=== PATIENT | female | born 1950 | race Caucasian/White ===

== ENCOUNTER 2023-08-06 23:59 | Inpatient (IN) | payer MEDICARE, OTHER, SELFPAY ==
[2023-08-06 21:33] VITALS: BP 136/98
[2023-08-06 22:00] VITALS: BP 127/90
--- NOTE | 2023-08-06 22:16 | ED.GENMED ---
History of Present Illness
General
Chief Complaint: Weakness
Source: patient
Exam Limitations: none
Time Seen by Provider: 08/06/23 21:56
Nursing documentation reviewed up to this point in time: agreed with
Travel History
Have you had any contact with someone who has COVID-19?: No
Do you have any symptoms of coronavirus? Fever > 100 degrees, chills, cough, shortness of breath, sore throat, loss of taste or smell, muscle aches, or headache?: No
History of Present Illness
History of Present Illness:
72-year-old female with a past medical history of irritable bowel syndrome, Crohn's disease, severe aortic stenosis, CHF, hypertension who presents to the emergency room for evaluation of increasing generalized weakness and leg swelling. Patient
has chronic issues with ambulation; she says she lives at home independently but spends most of the day in a recliner; she can use a walker to ambulate to and from her first floor bathroom but she says it takes her about an hour to get out of her
chair and walk to the bathroom and back. She has a visiting nurse/health aide from 9 AM to 1 PM daily and recently started with an evening aide from 5 PM to 8 PM daily. She says that over the past few months she has had difficulty with getting up
out of her chair and is taking her longer and longer to go to the bathroom. For this reason she has discontinued use of her Lasix�she says that due to her difficulty getting out of the chair and to the bathroom, using the Lasix essentially makes it
so that she has to spend most of her day running back and forth to the bathroom. She says she has not used her Lasix about 2 or 3 weeks. Over that period time she has noticed increased welling in her legs and increasing shortness of breath. She
has no she is having difficulty getting out of her chair. Tonight she expressed to her with an aide that she did not believe that she could make it through the night without assistance due to her degree of weakness that she did not believe she had
the strength to get up to go to the bathroom. For this reason EMS called to bring her to the hospital. She denies any chest pain. She denies any fevers, chills, coughing recently. She has not had any urinary symptoms. She denies any abdominal
pain, nausea, vomiting, diarrhea. Her cured meat packing supervisor is Dr. Estrada and although she says that her son (who lives in [place]) is a cured meat packing supervisor as well and also helps manage her care.
Past History
Past History
ED Past Medical History: GERD, HTN and Other (IBS)
ED Past Surgical History: Orthopedic
Social History
Tobacco: Non-smoker
Alcohol: None
Drug: None
Living: prison
Review of Systems
Review of Systems
All Other Systems: ROS reviewed and negative except as documented in HPI and ROS
Constitutional: Reports fatigue; Denies fever or chills
EENT: Denies sore throat or runny nose
Respiratory: Reports trouble breathing; Denies cough
Cardiac: Denies chest pain or palpitations
ABD/GI: Denies abdominal pain, nausea or vomiting
: Denies dysuria, frequency or flank pain
Musculoskeletal: Reports edema; Denies neck pain or back pain
Neurological: Reports weakness (Generalized); Denies headache or numbness
Phy Exam
Physical Exam
Physical Exam:
General: Awake, alert, oriented x3; no acute distress
Head: Normocephalic, atraumatic
Eyes: Conjunctiva normal
Throat: Airway intact, handling secretions
Neck: Trachea midline, no notable JVD
Lungs: Breath sounds diminished at the lung bases bilaterally; very mild tachypnea with a respiratory rate of 22; oxygen saturation acceptable at 96% on room air
Heart: Tachycardia with regular rhythm, systolic murmur
Abd: Soft, non distended, nontender
Neuro: Cranial nerves grossly intact, speech fluid
Extremities: Massive bilateral edema in the lower extremities with chronic venous stasis changes; extremities are warm and well-perfused
Scores
Heart Failure Risk
Heart Failure Risk Score: Yes
History of Stroke or TIA: No
History of intubation for respiratory distress: No
Heart rate on ED arrival >/= 110: Yes
SaO2 <90% on arrival on room air: No
HR >/=110 during 3min walk test (or too ill to perform test): Yes
ECG has acute ischemic changes: No
Urea >/=12mmol/L (BUN 33.6mg/dL): No
Serum CO2>/=35mmol/L: No
Troponin I or T elevated to NC Level (0.4mg/dL): No
NT-proBNP >/=5,000ng/L (5,000pg/ml): Yes
HF Risk Score: 3
Admission Status: HIGH RISK 15.9% Consider SNF treatment or admission to hospital
Heart Score for Chest Pain Patients
STEMI patient?: Not applicable
Withdrawal Assessment of Alcohol
Withdrawal Assessment Completed?: Not applicable
Course
Orders/Labs/Results
Orders:
Orders
08/06/23 21:40
Electrocardiogram (*1) Urgent
Reason for Study: Other
Other Reason for Exam: increased weakness
08/06/23 21:41
EKG- Treatment ONCE
08/06/23 21:58
Urinalysis Reflex To Culture Urgent
08/06/23 22:16
CR Chest Portable - 1 View Urgent
Comment:
Reason For Exam: CHF
Reason Study Needs to be Portable: Unable to Transport
08/06/23 22:44
Complete Blood Count/With Diff Urgent
Comprehensive Metabolic Panel Urgent
NT-proBNP Urgent
Troponin I Urgent
08/06/23 23:09
Furosemide [Lasix] 40 mg IV NOW STA
Abnormal Lab Results
08/06/23
22:44
Hgb 11.8 L g/dL
(12.0-16.0)
MCH 26.3 L pg
(27.0-31.0)
MCHC 31.9 L g/dL
(33.0-37.0)
RDW 21.1 H %
(11.5-14.5)
Neutrophils % 76.8 H %
(42.2-75.2)
Lymphocytes % 14.5 L %
(20.5-51.1)
Potassium 5.7 H mmol/L
(3.5-5.1)
Carbon Dioxide 21 L mmol/L
(22-30)
BUN 19 H mg/dl
(7-17)
Total Bilirubin 1.8 H mg/dl
(0.2-1.3)
AST 42 H U/L
(14-36)
Alkaline Phosphatase 167 H U/L
(38-126)
Total Protein 9.8 H g/dl
(6.3-8.2)
08/06/23 22:44
08/06/23 22:44
Vital Signs
Initial and Last Documented VS:
Initial Vital Signs
Temp Pulse Resp BP Pulse Ox
36.6 C 116 22 136/98 96
08/06/23 21:33 08/06/23 21:33 08/06/23 21:33 08/06/23 21:33 08/06/23 21:33
Last Documented Vital Signs
Temp Pulse Resp BP Pulse Ox
36.6 C 116 22 136/98 96
08/06/23 21:33 08/06/23 21:33 08/06/23 21:33 08/06/23 21:33 08/06/23 21:33
MDM/Problems Addressed
Differential Diagnosis Includes:
CHF, deconditioning, infection including UTI or pneumonia, anemia
MDM/Problems Addressed:
72-year-old female presents for progressive weakness/ambulatory dysfunction and increasing shortness of breath in the setting of noncompliance with her Lasix. Vital signs significant for tachycardia and mild tachypnea; otherwise within acceptable
range including a pulse ox of 96% on room air. Physical exam as above. Suspect likely CHF exacerbation and physical deconditioning. Will plan to place an IV check labs including a CBC and a CMP, troponin, BNP. Check an EKG and chest x-ray.
Monitor closely reassess after the above. Anticipate need for admission pending initial assessment here.
Labs reviewed: CBC shows marginal anemia, stable. CMP shows mild hyperkalemia to 5.7�no EKG changes. Will treat with Lasix both for this and for CHF exacerbation�her chest x-ray shows pulmonary vascular congestion and her BNP is elevated. Will
admit for continued management. Discussed with hospitalist for admission.
Chronic conditions affecting care:
CHF, obesity
Acute Exacerbation and/or Progression of Chronic Illness:
Acute CHF exacerbation manage as above
*Radiology
Radiology exam reviewed: preliminary read by ED provider
*Pulse Oximetry
Patient hypoxic: no
*EKG
Interpreted by ED Provider?: Yes
Heart Rate: 112
Rate: tachycardiac
Rhythm: sinus and sinus tachycardia
Matthews: left axis deviation
Interval: normal interval
QRS Pattern: left vent hypertrophy
Ischemia: non-specific ST changes
*Critical Care Note
Total Time (30-74mins, 75-104mins- exclusive of procedures): Not Applicable
Data Reviewed
Review of Other/Old Records Reveals: Labs, Records and Discharge Summary
Source: patient and records
Patient Management
Discussion with other providers: Hospitalist (Discussed with hospitalist)
Escalation/DeEscalation of care consider admission/obs:
Admission indicated
ED Attending Note
-
Portions of this chart may have been created with voice recognition software.� Occasional wrong word or��sound alike� substitutions may have occurred due to the inherent limitations of voice recognition software.
Discharge Plan
Departure
Admit to doctor: Nelsy
Presentation/result/management discussed w/ accepting MD/DO: Hospitalist
Discharge Problem:
CHF exacerbation, Physical deconditioning, Acute hyperkalemia
Prescriptions:
No Action
rabeprazole [AcipHex] 20 MG tablet,delayed release (DR/EC)
20 mg PO HS
multivitamin with folic acid [Tab-A-[place]] 1 TABLET tablet
1 tab PO DAILY
metoprolol tartrate 25 MG tablet
25 mg PO BID 0RF
loperamide 2 MG capsule
2 mg PO DAILYPRN MDD 8caps/24hrs PRN (Reason: diarrhea)
valsartan 80 MG tablet
160 mg PO HS
benzonatate 100 MG capsule
200 mg PO Q8HPRN PRN (Reason: cough)
lidocaine 1 PATCH adhesive patch,medicated
1 patch topical DAILYPRN PRN (Reason: mild pain)
gabapentin 300 MG capsule
300 mg PO Q6H
solifenacin 5 MG tablet
10 mg PO HS
L.acidoph-L.jaredg-B.bif-S.therm [Nereida-Bid] 1 EACH tablet
1 tab PO BID
acetaminophen 325 MG tablet
650 mg PO Q6HPRN MDD 3000mg/24hrs PRN (Reason: mild pain/SIFUENTES/temp> 100.4F)
ferrous sulfate [FeroSul] 325 MG tablet
325 mg PO QPM
amlodipine 2.5 MG tablet
2.5 mg PO BID
ciprofloxacin HCl 250 MG tablet
250 mg PO BID 5 Days Qty: 10 0RF
tramadol 50 MG tablet
50 mg PO Q6H Qty: 12 0RF
Referrals:
Ailyn Gomez MD [Family Provider] -
Interventions
Interventions:
*Risk Screen - Suicide Last Done: 08/06/23 21:33
*General Assessment Last Done: 08/06/23 21:33
*Neglect/Abuse Screening Last Done: 08/06/23 21:33
Discharge Date and Time
Print Language: SENEGALESE
[2023-08-06 22:53] LABS: % Basophils 0.4 % (0-2); % Eosinophils 2.1 % (0-6); % Immature Granulocytes 0.4 % (0-0.5); % Lymphocytes 14.5 % (20.5-51.1); % Monocytes 5.8 % (1.7-9.3); % Neutrophils 76.8 % (42.2-75.2); Absolute Eosinophils 0.2 10^3/uL (0-0.7); Absolute Lymphocytes 1.2 10^3/uL (1.2-3.4); Absolute Monocytes 0.5 10^3/uL (0.1-0.6); Absolute Neutrophils 6.1 10^3/uL (1.4-6.5); Hemoglobin 11.8 g/dL (12.0-16.0); Mean Corp Hgb Conc. 31.9 g/dL (33.0-37.0); Mean Corpuscular Hgb 26.3 pg (27.0-31.0); Mean Corpuscular Volume 82.4 fL (81.0-99.0); Mean Platelet Volume 9.4 fL (7.4-10.4); Nucleated Red Blood Cells % 0.3 %; Platelet Count 248 10^3/uL (130-400); Red Blood Cell Count 4.49 10^6/uL (4.20-5.40); Red Cell Dist. Width 21.1 % (11.5-14.5)
[2023-08-06 23:07] LABS: ALT (SGPT) 15 U/L (0-35); AST (SGOT) 42 U/L (14-36); Albumin 4.1 g/dl (3.5-5.0); Alkaline Phosphatase 167 U/L (38-126); Blood Urea Nitrogen 19 mg/dl (7-17); Calcium 9.7 mg/dl (8.4-10.2); Carbon Dioxide 21 mmol/L (22-30); Chloride 104 mmol/L (98-107); Glucose 98 mg/dl (70-99); Potassium 5.7 mmol/L (3.5-5.1); Sodium 135 mmol/L (135-145); Total Bilirubin 1.8 mg/dl (0.2-1.3); Total Protein 9.8 g/dl (6.3-8.2); eGFR > 60.00
[2023-08-06 23:25] LABS: NT-proBNP 19900 pg/ml; Troponin I 0.066 ng/ml
--- NOTE | 2023-08-06 23:52 | HPS.HSE ---
Addendum entered and electronically signed by Boaz Whittington MD 08/07/23 05:37:
Laboratory Tests
08/07/23
03:19
pH 7.47 H
pCO2 35
pO2 66 L
HCO3 25.5
Original Note:
Family Physician
-
Family Physician: Ailyn Gomez
Chief Complaint
-
sob and weakness
History of Present Illness
72F who lives at home independently with LEAD MATERIAL HANDLER support from 5p- 8p, she stays mostly in her recliner, HX HTN, morbid obesity, chr ambulatory dysfunction, CHF, severe ,noncompliance with Lasix for last 2-3 weeks pw progressive SoB and weakness.
Associated progressive weakness and progressive b/l leg edema with underlying chronic Lymphedema Abigail.
Thus she called EMS.
@ ER , mildly tachypneic and tachycardic upon arrival.
ROS
No chest pain.
No fevers, chills, cough
No urinary symptoms
No abdominal pain, nausea, vomiting, diarrhea
Medical History
Past Medical History
Past Medical History: Reports Other
Additional Past Medical History:
Severe aortic stenosis.
HX bicuspid aortic valve.
Hypertension.
Ambulatory dysfunction.
Morbid obesity.
Urinary tract infection.
Chr gait dysfunction
Past Surgical History: Reports Other (Bilateral TKA)
Social History
Tobacco: Non-smoker
Alcohol: None
Living: Alone
Family History
Family History: Not pertinent
Allergies / Home Medications
Allergies reflects when Allergies were last updated in [employer].
Home Medications with original date entered in [employer]
Allergy/Medication List:
Allergies
Allergy/AdvReac Type Severity Reaction Status Date / Time
banana [Banana] Allergy UPSET Verified 06/21/20 08:10
STOMACH
Sulfa (Sulfonamide Allergy RASH, HIVES Verified 06/21/20 08:10
Antibiotics)
DUST Allergy Unknown Uncoded 06/21/20 08:10
POLLEN Allergy Unknown Uncoded 06/21/20 08:10
TREES Allergy Unknown Uncoded 06/21/20 08:10
Home Medications
ferrous sulfate 325 mg (65 mg iron) tablet (FeroSul) 325 mg PO QPM Supplement 06/21/20
gabapentin 300 mg capsule 300 mg PO Q6H Pain 06/21/20
loperamide 2 mg capsule 2 mg PO QIDPRN PRN diarrhea 06/21/20
solifenacin 5 mg tablet 10 mg PO QPM Urinary issue 06/21/20
tramadol 50 mg tablet 50 mg PO Q6H Pain #12 tabs 11/14/20
acetaminophen 500 mg tablet 500 - 1,000 mg PO Q6H 08/06/23
furosemide 40 mg tablet 40 mg PO DAILY 08/06/23
omeprazole 20 mg capsule,delayed release 20 mg PO DAILY 08/06/23
valsartan 160 mg tablet 160 mg PO DAILY 08/06/23
Review of Systems
-
Constitutional: Reports No Symptoms
EENT: Reports No Symptoms
Respiratory: Reports Trouble Breathing
Cardiac: Reports Other (leg swelling )
Abdomen/GI: Reports No Symptoms
: Reports No Symptoms
Musculoskeletal: Reports No Symptoms
Skin: Reports No Symptoms
Neurological: Reports No Symptoms and Weakness (general )
Endocrine: Reports No Symptoms
Hematologic/Lymphatic: Reports No Symptoms
Psych: Reports No Symptoms
Physical Exam
Vital Signs
Vital Signs
Temp Pulse Resp BP Pulse Ox
97.9 F 116 22 136/98 96
08/06/23 21:33 08/06/23 21:33 08/06/23 21:33 08/06/23 21:33 08/06/23 21:33
Physical Exam
General: No Apparent Distress and Morbidly Obese
HEENT: NormoCephalic, Anicteric and Moist mucous membranes
Respiratory: Other (tachypnic, ); No Wheezes
Cardiac: S1/S2, Regular Rhythm, Tachycardia and Murmur (Loud ejection systolic mm at LUSB )
Breast: Deferred by me
GI: Soft, Non Tender, Non Distended and Normal Bowel Sounds
Rectal: Deferred by Provider
Genito-urinary: Deferred by me
Musculoskeletal: Edema, Left Lower Extremity (massive ), Edema, Right Lower Extremity (massive ) and Other (both legs are wrapped )
Skin: Other (chronic venous stasis changes in both legs )
Neuro: AO x 3
Psych: Calm
Laboratory Results
-
08/06/23 22:44
08/06/23 22:44
Laboratory Results
Total Bilirubin 1.8 mg/dl (0.2-1.3) H 08/06/23 22:44
AST 42 U/L (14-36) H 08/06/23 22:44
ALT 15 U/L (0-35) 08/06/23 22:44
Alkaline Phosphatase 167 U/L (38-126) H 08/06/23 22:44
Troponin I 0.066 ng/ml H* 08/06/23 22:44
Data Reviewed
-
Diagnostic Radiology: Report Reviewed by me
Lab Data: Labs Reviewed by me
Old Records: Reviewed
Impression/Plan
-
Reviewed VS:
HR 116 BP 136/98 RR 22 POx 96
BMI > 40
Data
Hgb 11.8 - wa 10.1 on 07/16/22
K 5.7
CO2 21
nl Cr, nl eGFR > 60
TB 1.8
AST 42
AKP 167
TPNI 0.066
proBNP 199 K
CXR
Mild pulmonary vascular congestion. Left midlung atelectasis. Cardiomegaly.
EKG
SINUS TACHYCARDIA
LEFT VENTRICULAR HYPERTROPHY WITH REPOLARIZATION ABNORMALITY ( R in aVL ,
[place] product )
ABNORMAL ECG
WHEN COMPARED WITH ECG OF 09-NOV-2020 09:03,
VENT. RATE HAS INCREASED BY 46 BPM
ST NO LONGER DEPRESSED IN ANTERIOR LEADS
ST NOW DEPRESSED IN LATERAL LEADS
T WAVE INVERSION NO LONGER EVIDENT IN ANTERIOR LEADS
T WAVE INVERSION MORE EVIDENT IN LATERAL LEADS
11/12/20 TTE
LVEF 60-65
diastolic filling pattern is suggestive of abnormal relaxation
Severe aortic stenosis with trace aortic regurgitation. Of note, reported
HX bicuspid aortic valve.
Mild to moderate mitral regurgitation.
Dilated aortic root and ascending aorta.
Last hospitalist admission: 11/11/20 - 11/14/20 DC Dx
Multifactorial gait dysfunction.
Status post fall with persistent neck pain.
ASSESSMENT & PLAN
Progressive Dyspnea
Acute on chr HFpEF
Non compliance with Lasix
- IV Lasix 40 BID
- cont. Valsartan
- daily IOs
- daily BMP
- CBC card consult
Volume overload ; chronic with acute element due to non compliance with Lasix
Chronic Lymphedema of both legs
- FR 1.5 L
- Hold amlodipine for now.
- Diuresis '
Hyperkalemia
- Held Valsartan
- f/u K in response to diuresis
- check ABG to r/o acute resp acidosis
Elevated TPNI - NMITE due to acute HF
No CP
- Trend TPNI
Severe Aortic Stenosis
Patient denies lightheadedness / dizziness.
- await Card eval
Essential HTN
- Held amlodipine as noted above as this can worsen edema.
- Held valsartan due to hyperkalemia
- Observe BP
Chronic ambulatory dysfunction: multifactorial origins
mostly in recliner but walk short distance to BR
DJD, Morbid obesity
- s/p bilateral TKA.
- Has chronic L hip pain
- Pain control
Morbid Obesity due to calorie excess
- Ability to exercise is significantly impaired by gait dysfunction, DJD, etc.
DVT Prophylaxis: Lovenox
Code Status: Full
IP TLM
[2023-08-07] VITALS (9 sets, daily range): BP systolic 101–123; BP diastolic 68–86; PULSE 65; O2SAT 95; BMI 44.1; BMI 46.1
[2023-08-07] MEDS: LASIX 40 MG IV (00:24)
--- NOTE | 2023-08-07 01:35 | PTCARENOTE ---
Received patient from ED in room 2120. Patient needed to be pulled over from stretcher to bed. AAOx3. VSS. L wrist IV. Tele, sinus tachycardia with PVCs. Murmur. +4 b/l LE edema. RLE warm and red. Lungs clear, diminished. Patient reports poor
appetite. Reports incontinence of urine, Purewick in place. Patient has pain 7/10 in R knee when moved or touched, but reports 0/10 pain when still.
Patient answered all admission questions correctly. Reports no complaints at this time. Resting comfortably in bed with call finch within reach.
[2023-08-07 03:41] LABS: ALT (SGPT) 13 U/L (0-35); AST (SGOT) 26 U/L (14-36); Albumin 3.4 g/dl (3.5-5.0); Alkaline Phosphatase 143 U/L (38-126); Blood Urea Nitrogen 17 mg/dl (7-17); Calcium 9.3 mg/dl (8.4-10.2); Carbon Dioxide 25 mmol/L (22-30); Chloride 105 mmol/L (98-107); Estimated Creatinine Clearance 78 ml/min; Glucose 96 mg/dl (70-99); HDL Cholesterol 35 mg/dl; LDL Cholesterol, Calculated 53 mg/dl; Potassium 4.1 mmol/L (3.5-5.1); Sodium 138 mmol/L (135-145); Total Bilirubin 1.5 mg/dl (0.2-1.3); Total Cholesterol 104 mg/dl (50-199); Total Protein 8.1 g/dl (6.3-8.2); Triglyceride 83 mg/dl (10-149); Very Low Density Lipoprotein 16 mg/dl (0-30); eGFR > 60.00
[2023-08-07 03:44] LABS: HCO3 25.5 mmol/L (21-28); O2 Saturation % 94.2 % (94-98); PCO2 35 mmHg (32-35); PO2 66 mmHg (83-108); pH 7.47 (7.35-7.45)
[2023-08-07 03:52] LABS: Troponin I 0.078 ng/ml
[2023-08-07] MEDS: ULTRAM PO ×2 (05:50→23:57)
[2023-08-07] MEDS: NEURONTIN PO ×2 (05:50→23:57)
[2023-08-07] MEDS: LASIX 40 MG PO ×2 (08:17→17:41)
--- NOTE | 2023-08-07 10:44 | W.PN.HOSP.TC ---
Today's Communication/Plan
-
Continue IV diuresis
PT/OT
Cardiology evaluation appreciated
Assessment / Plan
Assessment / Plan
Physical Exam
General: No Apparent Distress and Morbidly Obese
HEENT: Normocephalic, Anicteric and Moist mucous membranes
Respiratory: Other (tachypnic, ); No Wheezes
Cardiac: S1/S2, Regular Rhythm, Tachycardia and Murmur (Loud ejection systolic mm at LUSB )
Breast: Deferred by me
GI: Soft, Non Tender, Non Distended and Normal Bowel Sounds
Rectal: Deferred by Provider
Genito-urinary: Deferred by me
Musculoskeletal: Edema, Left Lower Extremity (massive ), Edema, Right Lower Extremity (massive ) and Other (both legs are wrapped )
Skin: Other (chronic venous stasis changes in both legs )
Neuro: AO x 3
Psych: Calm
Assessment/Plan
Progressive Dyspnea
Presentation with Increasing Generalized Weakness and Leg Swelling
Acute on chr HFpEF
Non compliance with Lasix (for the past 2 to 3 weeks prior to presentation) due to the fact that it's hard for her to get and go to the bathroom
Lives independently at home but spends most of her time on recliner
- CXR as per radiologist's report showed 'Mild pulmonary vascular congestion. Left midlung atelectasis. Cardiomegaly.'
- proBNP was [address]1501 on presentation
- IV diuresis Lasix 40 mg BID
- Continue Valsartan
- Daily Is and Os
- Daily BMP
- Cardiology consulted, recommendations appreciated
Volume overload ; chronic with acute element due to non compliance with Lasix
Chronic Lymphedema of both legs
- PO fluid restriction
- Hold amlodipine for now.
- IV diuresis as above
Hyperkalemia
- Continue to hold Valsartan
- f/u K in response to diuresis
- check ABG to r/o acute resp acidosis
Elevated TPNI - Non-MS Troponin Elevation due to acute HF
No CP
- Trending troponins -- although elevated, they show an unremarkable trend
Severe Aortic Stenosis
History of bicuspid aortic valve
Patient denies lightheadedness / dizziness.
- Cardiology consulted, recommendations appreciayed
Essential Hypertension
- Held amlodipine as noted above as this can worsen edema.
- Held valsartan due to hyperkalemia
- Observe BP
Chronic ambulatory dysfunction: multifactorial origins
mostly in recliner but walk short distance to BR
Multifactorial gait dysfunction
History of fall with persistent neck pain
History of Rhabdomyolysis
DJD, Morbid obesity
- s/p bilateral TKA.
- Has chronic L hip pain
- Pain control
History of GERD
History of Irritable Bowel Syndrome
History of Crohn's Disease?
Morbid Obesity due to calorie excess
- Ability to exercise is significantly impaired by gait dysfunction, DJD, etc.
History of Urinary Tract Infection
DVT Prophylaxis: Lovenox
Code Status: Full
Anticipated Discharge: > 48 hours
Subjective/Interval History
-
Date of Service: August 07, 2023
Patient was seen and examined. She reported no new significant complaints, although she has recently at least for the past few days has been having chest pressure.
Objective Data
-
Labs:
Laboratory Results
08/06/23 08/07/23 08/07/23
22:44 02:49 03:19
WBC 8.0
Hgb 11.8 L
Hct 37.0
Plt Count 248
HCO3 25.5
Sodium 135 138
Potassium 5.7 H 4.1 D
Chloride 104 105
Carbon Dioxide 21 L 25
BUN 19 H 17
Creatinine 0.7 0.7
Glucose 98 96
Calcium 9.7 9.3
Total Bilirubin 1.8 H 1.5 H
AST 42 H 26
ALT 15 13
Alkaline Phosphatase 167 H 143 H
Vital Signs:
Vital Signs
Temp Pulse Resp BP Pulse Ox
98.9 F 113 12 107/73 90
08/07/23 07:00 08/07/23 08:17 08/07/23 07:00 08/07/23 08:17 08/07/23 07:00
I&O
08/06/23 08/07/23 08/08/23
06:59 06:59 06:59
Intake Total 480 / 480
Output Total 1725 / 1725
Balance -1245 / -1245
[2023-08-07] MEDS: ULTRAM 50 MG PO ×2 (14:01→17:42)
[2023-08-07] MEDS: NEURONTIN 300 MG PO ×2 (14:01→17:42)
--- NOTE | 2023-08-07 14:07 | PTOTSP ---
SPEECH THERAPY SWALLOW EVALUATION:
Patient presents with grossly functional oropharyngeal swallow function. Suspect esophageal dysphagia given report of substernal globus sensation with dry solids requiring liquid wash. Recommend GI consult given concern for esophageal dysphagia.
Recommend Nutrition Consult given report of recent weight loss due to solid texture restriction. Patient at risk for post-prandial aspiration given suspected esophageal dysphagia and GERD. Recommend Regular texture diet, with patient to select
moist/soft items and avoid dry/hard items; Thin liquids. Medications whole with liquid as tolerated. Speech therapy to follow briefly at the acute care level pending GI follow-up. Recommend aspiration precautions including: Upright positioning while
eating/drinking; Remain upright 30 minutes after eating/drinking; Small sips/Bites; Alternate textures and intersperse liquids during meals; Overchew foods.
RECOMMEND:
1) Regular texture diet, with patient to select moist/soft items and avoid dry/hard items; Thin liquids
2) Medications whole with liquid as tolerated
3) Aspiration precautions including: Upright positioning while eating/drinking; Remain upright 30 minutes after eating/drinking; Small sips/Bites; Alternate textures and intersperse liquids during meals; Overchew foods
4) GI consult given concern for esophageal dysphagia
5) Nutrition Consult given report of recent weight loss due to solid texture restriction
6) Speech therapy to follow briefly at the acute care level pending GI follow-up
--- NOTE | 2023-08-07 15:13 | PTCARENOTE ---
Received a call from Pamella at '[facility] home care' ([phone]) who has been providing care to patient at home; reporting concern for patient's safety. Pamella expressed that patient has been having anxiety/panic attacks at times, not eating well,
unwilling to do ADL's and had some suicidal thoughts. When conversing with patient, she denied feeling suicidal but expressed feeling very sad/in tears/lonely (as son is away), and does not wish to live in a SNF but rather have a radio time buyer aid at
home. Wound care has been consulted for MSAD and unhealing wounds on her legs. Case management's assistance in this matter prior to discharge would be very beneficial to patient.
--- NOTE | 2023-08-07 15:26 | CM ---
CM met with pt bedside
Pt resides alone in a 2SH with 2STE
Pt is AxO3x
She has a 1st floor set up and powder room on 1st floor
Pt notes she has been homebound for [address]
She has help do errands and things delivered
She does all telemed visits
Pt notes she is able to ambulate short distances with a WW
She sponges bathes in sink and wears easy slip on clothing
She has private duty aides 9-1pm and 8:30-11:30pm daily
Hx with many VN agencies
She has attended rehab at [facility] and then went to [facility] for a LT respite stay post rehab
PCP- Ailyn Gomez
Rx- [facility]
PT/OT ilir recommend SNF
PAC list provided
Pt is hopeful to return home with increased private duty care and VN
She also has started process with moving to [facility] [place]
She will call to try increase private duty or might consider moving to [facility] from hospital
She will only consider SNF as a backup if needed
DIL/son Danita and [place] are primary contacts and are both cardiologists residing in [place]
Discharge Disposition- home with VN and increase in private duty vs SNF
[2023-08-07 15:57] LABS: Urine Albumin Negative (Neg - Trace); Urine Bilirubin Negative (Negative); Urine Character Slightly Cloudy (Clear); Urine Color Straw; Urine Glucose Negative (Negative); Urine Ketone Negative (Negative); Urine Leukocyte 2+ (Negative); Urine Nitrite Negative (Negative); Urine Occult Blood 2+ (Negative); Urine Urobilinogen Negative (Neg - 1+)
[2023-08-07 16:10] LABS: Urine White Cell 16-20 /HPF (0-5)
[2023-08-07 16:11] LABS: Urine Bacteria Many (Negative); Urine Squamous Cell 0-2 /LPF (Few)
--- NOTE | 2023-08-07 17:25 | CON.CAR ---
Consultation
Consultation Request
Date/Time Consultation Requested: 08/07/2023 800 hours
Date/Time Consultation Performed: 08/07/2023 1700 hrs.
Requesting Provider: Romero Figueroa MD
Performing Provider: Ashu Azevedo MD
Reason for Consultation: Heart failure. Known severe aortic stenosis
Medical History
-
Chief Complaint: Shortness of breath
History of Present Illness:
PCP Jason
Mediation Commissioner Natalie
HPI: Pleasant 72-year-old woman. She is home bound with severe ambulatory dysfunction, morbid obesity, lymphedema, and known severe aortic stenosis. She can ambulate with a walker with difficulty. She has had problems with wounds in the past.
Dr. Gomez performs home visits. Son and his are assessment nurse practitioner and [place]. They have discussed aortic valve replacement with their mother. She has been felt to have severe aortic stenosis for a number of years. Peripheral edema has been
attributed to lymphedema. More recently she has developed shortness of breath unresponsive to her home furosemide. She came into the hospital. proBNP is consistent with heart failure. Chest x-ray is consistent with heart failure. Cardiology
consultation was requested.
Past Medical History
Past Medical History: HTN, Valvular Disease ( bicuspid aortic valve, severe aortic stenosis) and Other (Lymphedema, ambulatory dysfunction, lower extremity wounds,)
Past Surgical History: Orthopedic (Bilateral knee replacements)
Social History
Tobacco: Non-Smoker
Living: Alone (With aids)
Family History
Family History: Other (No premature CAD in first-degree relatives)
Allergies / Home Medications
Allergy/AdvReac Type Severity Reaction Status Date / Time
banana [Banana] Allergy UPSET Verified 06/21/20 08:10
STOMACH
Sulfa (Sulfonamide Allergy RASH, HIVES Verified 06/21/20 08:10
Antibiotics)
DUST Allergy Unknown Uncoded 06/21/20 08:10
POLLEN Allergy Unknown Uncoded 06/21/20 08:10
TREES Allergy Unknown Uncoded 06/21/20 08:10
�Medication �Instructions �Recorded �Confirmed �Type
ferrous sulfate 325 mg (65 mg 325 mg PO QPM Supplement 06/21/20 08/06/23 History
iron) tablet (FeroSul)
gabapentin 300 mg capsule 300 mg PO Q6H Pain 06/21/20 08/06/23 History
loperamide 2 mg capsule 2 mg PO QIDPRN PRN diarrhea 06/21/20 08/06/23 History
solifenacin 5 mg tablet 10 mg PO QPM Urinary issue 06/21/20 08/06/23 History
tramadol 50 mg tablet 50 mg PO Q6H Pain #12 tabs 11/14/20 08/06/23 Rx
acetaminophen 500 mg tablet 500 - 1,000 mg PO Q6H Pain 08/06/23 08/06/23 History
furosemide 40 mg tablet 40 mg PO DAILY Fluid 08/06/23 08/06/23 History
Retention/Swelling
omeprazole 20 mg capsule,delayed 20 mg PO DAILY Gastrointestinal 08/06/23 08/06/23 History
release Issue
valsartan 160 mg tablet 160 mg PO DAILY Blood Pressure 08/06/23 08/06/23 History
Review of Systems
-
History Source: Patient
Respiratory: Other (Positive for progressive dyspnea)
Cardiac: Other (No chest pain)
Physical Exam
Vital Signs
Temp Pulse Resp BP Pulse Ox
98.6 F 110 22 111/77 22
08/07/23 15:00 08/07/23 15:00 08/07/23 15:00 08/07/23 15:00 08/07/23 15:00
Lab Results
08/06/23 22:44
08/07/23 02:49
Troponin I Cancelled 08/07/23 14:28
Ewm-B-[id number] Pept 21645 pg/ml 08/06/23 22:44
Physical Exam
General: Well Developed, Comfortable and Other (Morbidly obese)
HEENT: Normocephalic
Respiratory: Crackles
Cardiac: S1/S2 and Murmur (Late peaking systolic ejection murmur)
GI: Soft and Non Tender
Musculoskeletal: Edema (The thighs and legs are large and edematous)
Skin: Warm
Neuro: AO x 3
Psych: Calm
Impression / Plan
-
Heart failure, acute on chronic likely related to his severe aortic stenosis
Severe valvular aortic stenosis. History of bicuspid aortic valve
Diastolic dysfunction
Ascending thoracic aortic dilatation
Hypertension
Severe ambulatory dysfunction
Morbid obesity
Long history of lymphedema
Long history of wounds
-Will consult wound care for an evaluation
Severe orthopedic disease
History of MRSA colonization
Prior to joint replacement
Her son and his are both assessment nurse practitioner who practices in [place]. They have discussed aortic valve replacement. In the past the patient has been felt to be asymptomatic and she has been entirely uninterested in valve surgery. I explained to
her that she is no longer asymptomatic and there are strong indications to replace the aortic valve. She tells me that she has been told that she might not be a valve candidate. Given her age of 72 I think we certainly need a formal evaluation by
the valve team before we think that she is not a candidate for valve surgery here or elsewhere. For severe comorbid conditions certainly increase her risk of complications.
If she agrees to consider valve replacement she will likely need a CT scan of the chest to assess aorta and of course of candidacy for TAVR are I do not think she would be an acceptable SAVR candidate
For now we will update an echocardiogram and continue to discuss with her about her willingness to consider valve replacement. Currently she is not interested. I offered to call her son and [id number].
Data Reviewed
-
EKG: Tracing Personally Visualized and interpreted (EKG 08/06/2023: Sinus tach 112 bpm. LVH with repolarization amount. Cannot exclude ischemia.)
Radiology: Image Personally Visualized and interpreted (CXR 08/06/2023 despite portable technique I am confident to say the heart is enlarged and the vascular are prominent consistent with heart failure) and Report Reviewed by me (Other findings that
the radiologist noted on the checks x-ray include: Progression of severe arthrosis of the right glenohumeral joint. Left glenohumeral osteoarthrosis and rotator cuff arthropathy with severe narrowing of the subacromial space. Chronic degenerative
changes of the spine.)
Ultrasound: Report Reviewed by me (Cardiac echo 11/12/2020: Severe aortic stenosis, mean gradient 46 mmHg valve area 0.8 cm�. LVEF 60 to 65% with LVH and abnormal diastolic function ascending aorta 4.3 cm.)
Total Time Spent with Patient (in minutes): 80 minutes spent performing consultation in its entirety today.
[2023-08-07] MEDS: LOVENOX 40 MG SC (17:41)
[2023-08-07] MEDS: DESENEX/MITRAZOL/ZEASORB 1 APPLIC TOPICAL (17:42)
[2023-08-07] MEDS: VESICARE 10 MG PO (17:42)
[2023-08-08] VITALS (7 sets, daily range): BP systolic 101–131; BP diastolic 70–95; BMI 45.2
[2023-08-08] MEDS: NEURONTIN 300 MG PO ×4 (06:55→23:58)
[2023-08-08] MEDS: ULTRAM 50 MG PO ×4 (06:55→23:58)
[2023-08-08 08:17] LABS: Hematocrit 32.6 % (37.0-47.0); Hemoglobin 10.1 g/dL (12.0-16.0); Mean Corpuscular Hgb 26.3 pg (27.0-31.0); Mean Corpuscular Volume 84.9 fL (81.0-99.0); Mean Platelet Volume 10.1 fL (7.4-10.4); Platelet Count 205 10^3/uL (130-400); Red Blood Cell Count 3.84 10^6/uL (4.20-5.40); Red Cell Dist. Width 20.7 % (11.5-14.5); White Blood Cell Count 6.5 10^3/uL (4.8-10.8)
[2023-08-08] MEDS: LASIX 40 MG PO ×2 (08:32→17:20)
[2023-08-08] MEDS: DESENEX/MITRAZOL/ZEASORB 1 APPLIC TOPICAL ×2 (08:32→20:00)
--- NOTE | 2023-08-08 08:43 | CON.GI ---
Consultation
-
Date/Time Consultation Requested: 08/07/23 4pm
Date/Time Consultation Performed: 08/08/23 at 6:30am
Requesting Provider: jonathan
Performing Provider: abram
Reason for Consultation: dysphagia
Medical History
Chief Complaint / HPI
Chief Complaint: dysphagia
History of Present Illness:
This patient is a 72-year-old woman with history of hypertension, valvular disease with severe aortic stenosis, lymphedema, ambulatory dysfunction who is unable to stand without assistance.She was admitted with acute on chronic CHF. Her consult is
for dysphagia. She states that she has some dysphagia to solids not to liquids. She does note that she does not regurgitate. She does not have overt GERD however she was told that some of her atypical symptoms of chest discomfort may be reflux
related. She has had an endoscopy 6 years ago which she states is normal. She does have a family history of esophageal cancer in her mother smoked. She has had a colonoscopy in the past.
Past Medical History
Past Medical History: Other (Aortic stenosis, hypertension, CHF, ambulatory dysfunction, lymphedema)
Social History
Tobacco: Non-Smoker
Family History
Family History: Other (Mother with esophageal cancer.)
Allergies / Home Medications
Allergy/AdvReac Type Severity Reaction Status Date / Time
banana [Banana] Allergy UPSET Verified 06/21/20 08:10
STOMACH
Sulfa (Sulfonamide Allergy RASH, HIVES Verified 06/21/20 08:10
Antibiotics)
DUST Allergy Unknown Uncoded 06/21/20 08:10
POLLEN Allergy Unknown Uncoded 06/21/20 08:10
TREES Allergy Unknown Uncoded 06/21/20 08:10
�Medication �Instructions �Recorded
ferrous sulfate 325 mg (65 mg 325 mg PO QPM Supplement 06/21/20
iron) tablet (FeroSul)
gabapentin 300 mg capsule 300 mg PO Q6H Pain 06/21/20
loperamide 2 mg capsule 2 mg PO QIDPRN PRN diarrhea 06/21/20
solifenacin 5 mg tablet 10 mg PO QPM Urinary issue 06/21/20
tramadol 50 mg tablet 50 mg PO Q6H Pain #12 tabs 11/14/20
acetaminophen 500 mg tablet 500 - 1,000 mg PO Q6H Pain 08/06/23
furosemide 40 mg tablet 40 mg PO DAILY Fluid 08/06/23
Retention/Swelling
omeprazole 20 mg capsule,delayed 20 mg PO DAILY Gastrointestinal 08/06/23
release Issue
valsartan 160 mg tablet 160 mg PO DAILY Blood Pressure 08/06/23
Review of Systems
-
All other systems: A 12 pt ROS was Negative except as stated above in HPI (Other positive review of symptoms include leg swelling, difficulty walking and standing)
Vital Signs
Temp Pulse Resp BP Pulse Ox
97.8 F 118 10 115/84 91
08/08/23 07:00 08/08/23 07:00 08/08/23 07:00 08/08/23 08:32 08/08/23 07:00
Physical Exam
Exam
General: No Apparent Distress
HEENT: Anicteric
Cardiac: S1/S2
GI: Soft and Non Distended
Musculoskeletal: Edema
Results
WBC 6.5 10^3/uL (4.8-10.8) 08/08/23 06:57
Hgb 10.1 g/dL (12.0-16.0) L 08/08/23 06:57
Hct 32.6 % (37.0-47.0) L 08/08/23 06:57
MCV 84.9 fL (81.0-99.0) 08/08/23 06:57
Plt Count 205 10^3/uL (130-400) 08/08/23 06:57
Absolute Neuts (auto) 6.1 10^3/uL (1.4-6.5) 08/06/23 22:44
Sodium 138 mmol/L (135-145) 08/07/23 02:49
Potassium 4.1 mmol/L (3.5-5.1) D 08/07/23 02:49
Chloride 105 mmol/L (98-107) 08/07/23 02:49
Carbon Dioxide 25 mmol/L (22-30) 08/07/23 02:49
BUN 17 mg/dl (7-17) 08/07/23 02:49
Creatinine 0.7 mg/dL (0.6-1.0) 08/07/23 02:49
Calcium 9.3 mg/dl (8.4-10.2) 08/07/23 02:49
Total Bilirubin 1.5 mg/dl (0.2-1.3) H 08/07/23 02:49
AST 26 U/L (14-36) 08/07/23 02:49
ALT 13 U/L (0-35) 08/07/23 02:49
Alkaline Phosphatase 143 U/L (38-126) H 08/07/23 02:49
Assessment / Plan
-
This patient is a 72-year-old woman with a history of severe aortic stenosis, ambulatory dysfunction, CHF, lymphedema who has dysphagia and a family history of esophageal cancer. Her dysphagia appears mainly to solids and she has a questionable
underlying GERD with a previous normal endoscopy. For now would do the following:
1. PPI bid
2. gerd precautions which are Difficult with ambulatory dysfunction
3. She ideally needs visualization of her esophagus however with her severe aortic stenosis and CHF upper endoscopy is not ideal. She does herself prefer barium esophagram however she has difficulty standing and this may preclude this exam. This
can be evaluated as an outpatient as well as this is more of a chronic symptom. We will follow at this point and see what the most appropriate next step is based on her cardiac progress.
-
-
Thank you for consultation and allowing me to participate in the patient's care. Please call the reforestation worker GI physician during the after hours with any questions or concerns.
[2023-08-08 08:44] LABS: Blood Urea Nitrogen 17 mg/dl (7-17); Calcium 8.6 mg/dl (8.4-10.2); Carbon Dioxide 25 mmol/L (22-30); Chloride 102 mmol/L (98-107); Estimated Creatinine Clearance 67 ml/min; Glucose 90 mg/dl (70-99); Magnesium 1.6 mg/dl (1.6-2.3); Potassium 3.8 mmol/L (3.5-5.1); Sodium 134 mmol/L (135-145); eGFR > 60.00
--- NOTE | 2023-08-08 09:41 | W.PN.CD ---
Today's Communication / Plan
-
Continue IV diuresis
Echo tomorrow
Likely valve team consult after echo, pt and her family may prefer evaluation in [place]
Impression / Plan
-
Heart failure, acute on chronic likely related to his severe aortic stenosis
Chest pain
- Today (08/08/2023) she mentioned that over last several weeks/months she has had emotional stress induced moderate central chest heaviness,longest 2 min in duration
- Perhaps from severe or CAD??
Severe valvular aortic stenosis. History of bicuspid aortic valve
Diastolic dysfunction
Ascending thoracic aortic dilatation
Hypertension
Severe ambulatory dysfunction
Morbid obesity
Long history of lymphedema
Long history of wounds
-Will consult wound care for an evaluation
Severe orthopedic disease
History of MRSA colonization
Prior to joint replacement
Subjective: Dyspnea improved
Physical Exam
Vital Signs/Labs
Vital Signs
Temp Pulse Resp BP Pulse Ox
97.8 F 118 10 115/84 91
08/08/23 07:00 08/08/23 07:00 08/08/23 07:00 08/08/23 08:32 08/08/23 07:00
08/07/23 08/08/23 08/09/23
06:59 06:59 06:59
Actual Weight 107.093 kg 104.871 kg
08/08/23 06:57
08/08/23 06:57
Magnesium 1.6 mg/dl (1.6-2.3) 08/08/23 06:57
Triglycerides 83 mg/dl (10-149) 08/07/23 02:49
LDL Cholesterol, Calc 53 mg/dl 08/07/23 02:49
VLDL Cholesterol, Calc 16 mg/dl (0-30) 08/07/23 02:49
HDL Cholesterol 35 mg/dl 08/07/23 02:49
08/06/23
22:44
Zya-Q-Dqdherowbtb Pept
LAB Results
08/06/23 08/07/23 08/07/23
22:44 02:49 08:51
Troponin I 0.066 H* 0.078 H* 0.090 H*
08/07/23
14:28
Troponin I Cancelled
Physical Exam
Constitutional: No acute distress
EENT: Anicteric
Cardiovascular: Rhythm & rate is regular, Pedal edema present and Systolic murmur present
Respiratory: Respiratory effort normal and Lungs clear to auscul.
GI: Soft
Neuro/Psych: AO x 3
Data Reviewed
-
Date of Service: August 08, 2023
--- NOTE | 2023-08-08 14:27 | W.PN.HOSP.TC ---
Today's Communication/Plan
-
Continue increased diuresis
Echo tomorrow
Needs Aortic Valve replacement evaluation
Cardiology to call patient's son who is a java groovy developer
Assessment / Plan
Assessment / Plan
Physical Exam
General: No Apparent Distress and Morbidly Obese
HEENT: Normocephalic, Anicteric and Moist mucous membranes
Respiratory: CTAB
Cardiac: S1/S2, Regular Rhythm, Tachycardia and Murmur (Loud ejection systolic mm at LUSB )
GI: Soft, Non Tender, Non Distended and Normal Bowel Sounds
Musculoskeletal: Edema, Left Lower Extremity (massive ), Edema, Right Lower Extremity (massive ) and Other (both legs are wrapped )
Neuro: AO x 3
Psych: Calm
Assessment/Plan
Progressive Dyspnea
Presentation with Increasing Generalized Weakness and Leg Swelling
Acute on Chronic HFpEF -- likely related to patient's severe aortic stenosis
Non compliance with Lasix (for the past 2 to 3 weeks prior to presentation) due to the fact that it's hard for her to get and go to the bathroom
Lives independently at home but spends most of her time on recliner
- CXR as per radiologist's report showed 'Mild pulmonary vascular congestion. Left midlung atelectasis. Cardiomegaly.'
- proBNP was 00355 on presentation
- Continue PO Lasix 40 mg BID (patient takes 40 mg daily at home)
- Holding Valsartan due to reasons below
- Daily Is and Os
- Daily BMP
- Cardiology consulted, recommendations appreciated
Volume overload ; chronic with acute element due to non compliance with Lasix
Chronic Lymphedema of both legs
- PO fluid restriction
- Hold amlodipine for now.
- Continue diuresis as above
Hyperkalemia
- Continue to hold Valsartan
- f/u K in response to diuresis
Elevated TPNI - Non-AR Troponin Elevation due to acute HF
No CP
- Trending troponins -- although elevated, they show an unremarkable trend
Severe Aortic Stenosis
History of bicuspid aortic valve
Patient denies lightheadedness / dizziness.
- Cardiology consulted, recommendations appreciayed
Essential Hypertension
- Held amlodipine as noted above as this can worsen edema.
- Held valsartan due to hyperkalemia
- Observe BP
Chronic ambulatory dysfunction: multifactorial origins
mostly in recliner but walk short distance to BR
Multifactorial gait dysfunction
History of fall with persistent neck pain
History of Rhabdomyolysis
DJD, Morbid obesity
- s/p bilateral TKA.
- Has chronic L hip pain
- Pain control
History of GERD
History of Irritable Bowel Syndrome
History of Crohn's Disease?
Morbid Obesity due to calorie excess
- Ability to exercise is significantly impaired by gait dysfunction, DJD, etc.
Long history of wounds
- Continue wound care
History of MRSA colonization
History of Urinary Tract Infection
DVT Prophylaxis: Lovenox
Code Status: Full
Anticipated Discharge: > 48 hours
Subjective/Interval History
-
Date of Service: August 08, 2023
Patient was seen and examined. She reported no new significant symptoms or complaints.
Objective Data
-
Labs:
Laboratory Results
08/08/23
06:57
WBC 6.5
Hgb 10.1 L
Hct 32.6 L
Plt Count 205
Sodium 134 L
Potassium 3.8
Chloride 102
Carbon Dioxide 25
BUN 17
Creatinine 0.8
Glucose 90
Calcium 8.6
Vital Signs:
Vital Signs
Temp Pulse Resp BP Pulse Ox
97.2 F 103 16 130/87 93
08/08/23 11:00 08/08/23 11:00 08/08/23 11:00 08/08/23 11:00 08/08/23 11:00
I&O
08/07/23 08/08/23 08/09/23
06:59 06:59 06:59
Intake Total 480 / 480 720 / 720 280 / 280
Output Total 1725 / 1725 900 / 900 800 / 800
Balance -1245 / -1245 -180 / -180 -520 / -520
--- NOTE | 2023-08-08 15:48 | PTCARENOTE ---
pt refusing [id number]. after education on skin breakdown risks pt is agreeable to a static air overlay to protect sacrum and buttock. pt is on a purewick and pt states we can only put the overlay under her when we do everything else. pt states that
she sits in a chair most of the day at home but is refusing to attempt to get out of bed here because it causes too much pain. pt states that she does not like her fluid restriction but is agreeable to try and maintain the restriction limit.
[2023-08-08] MEDS: VESICARE 10 MG PO (17:20)
[2023-08-08] MEDS: LOVENOX 40 MG SC (17:21)
[2023-08-08] MEDS: NSS (PRESERVATIVE FREE) 8 ML IV (20:00)
[2023-08-08] MEDS: PEPCID 20 MG IV (20:00)
[2023-08-09 03:36] VITALS: BP 119/68
[2023-08-09 04:56] VITALS: BMI 46.2
[2023-08-09 05:08] LABS: Hematocrit 33.4 % (37.0-47.0); Hemoglobin 10.1 g/dL (12.0-16.0); Mean Corp Hgb Conc. 30.2 g/dL (33.0-37.0); Mean Corpuscular Hgb 26.2 pg (27.0-31.0); Mean Corpuscular Volume 86.5 fL (81.0-99.0); Mean Platelet Volume 10.6 fL (7.4-10.4); Platelet Count 210 10^3/uL (130-400); Red Blood Cell Count 3.86 10^6/uL (4.20-5.40); Red Cell Dist. Width 20.6 % (11.5-14.5)
[2023-08-09 05:51] LABS: Blood Urea Nitrogen 18 mg/dl (7-17); Calcium 8.9 mg/dl (8.4-10.2); Carbon Dioxide 28 mmol/L (22-30); Chloride 97 mmol/L (98-107); Estimated Creatinine Clearance 68 ml/min; Glucose 97 mg/dl (70-99); Magnesium 1.6 mg/dl (1.6-2.3); Potassium 3.5 mmol/L (3.5-5.1); Sodium 134 mmol/L (135-145); eGFR > 60.00
[2023-08-09] MEDS: ULTRAM 50 MG PO ×4 (05:57→23:34)
[2023-08-09] MEDS: NEURONTIN 300 MG PO ×4 (05:57→23:34)
[2023-08-09] MEDS: LASIX 40 MG PO (08:01)
[2023-08-09] MEDS: NSS (PRESERVATIVE FREE) 8 ML IV ×2 (08:01→21:42)
[2023-08-09] MEDS: DESENEX/MITRAZOL/ZEASORB 1 APPLIC TOPICAL ×2 (08:01→21:40)
[2023-08-09] MEDS: PEPCID 20 MG IV ×2 (08:01→21:41)
[2023-08-09 08:02] VITALS: BP 124/80
[2023-08-09 08:04] VITALS: BMI 46.2
--- NOTE | 2023-08-09 09:30 | W.PN.HOSP.TC ---
Addendum entered and electronically signed by Santhosh Bob MD 08/09/23 17:39:
Acute on chronic HFr EF
Non-KS troponin elevation in relation to congestive heart failure
Addendum entered and electronically signed by Santhosh Bob MD 08/09/23 15:07:
I spoke to Dr. Phoenix Callahan patient's son after suggestion to call from cardiology and family is quite concerned over the patient's stated suicidal ideation that she had related to her brother Davey Matute 'I want to take all my pills to kill
myself' also has stated I need to find a gun. According to patient's son who is a byproducts maker at [facility] he has been trying to get her down there for definitive management over ongoing severe aortic stenosis but the patient has refused
over her fears of being committed to a assisted living facility and tries to have as little contact with her son as possible as a result. According to her son patient is had anxiety and depression issues for years does not been treated with a
special point of concern now with stated suicidal intent related to her brother. Promised I would obtain psychiatry consultation to further assist and will give numbers to obtain history of Mr. Matute and Dr. Callahan to them.
Original Note:
Today's Communication/Plan
-
For echocardiogram today to delineate degree of aortic stenosis
Continue po furosemide but weight is up by about 3 kg
Resume valsartan
Assessment / Plan
Assessment / Plan
Physical Exam
General: No Apparent Distress and Morbidly Obese
HEENT: Normocephalic, Anicteric and Moist mucous membranes
Respiratory: CTAB
Cardiac: S1/S2, Regular Rhythm, Tachycardia and Murmur (Loud ejection systolic mm at LUSB )
GI: Soft, Non Tender, Non Distended and Normal Bowel Sounds
Musculoskeletal: Edema, Left Lower Extremity (massive ), Edema, Right Lower Extremity (massive ) and Other (both legs are wrapped )
Neuro: AO x 3
Psych: Calm
Assessment/Plan
Progressive Dyspnea
Presentation with Increasing Generalized Weakness and Leg Swelling
Acute on Chronic HFpEF -- likely related to patient's severe aortic stenosis
Non compliance with Lasix (for the past 2 to 3 weeks prior to presentation) due to the fact that it's hard for her to get and go to the bathroom
Lives independently at home but spends most of her time on recliner
- CXR as per radiologist's report showed 'Mild pulmonary vascular congestion. Left midlung atelectasis. Cardiomegaly.'
- proBNP was on presentation
- Continue PO Lasix 40 mg BID (patient takes 40 mg daily at home)
- Holding Valsartan due to reasons below/may now be able to resume as potassium improved
- Daily Is and Os
- Daily BMP
- Cardiology consulted, recommendations appreciated
Volume overload ; chronic with acute element due to non compliance with Lasix
Chronic Lymphedema of both legs
- PO fluid restriction
- Hold amlodipine for now.
- Continue diuresis as above
Hyperkalemia
- Continue to hold Valsartan
- f/u K in response to diuresis
-Cannot be resumed
Elevated TPNI - Non-KS Troponin Elevation due to acute HF
No CP
- Trending troponins -- although elevated, they show an unremarkable trend
Severe Aortic Stenosis
History of bicuspid aortic valve
Patient denies lightheadedness / dizziness.
- Cardiology consulted, recommendations appreciayed
Essential Hypertension
- Held amlodipine as noted above as this can worsen edema.
- Held valsartan due to hyperkalemia
- Observe BP
Chronic ambulatory dysfunction: multifactorial origins
mostly in recliner but walk short distance to BR
Multifactorial gait dysfunction
History of fall with persistent neck pain
History of Rhabdomyolysis
DJD, Morbid obesity
- s/p bilateral TKA.
- Has chronic L hip pain
- Pain control
History of GERD
History of Irritable Bowel Syndrome
History of Crohn's Disease?
Morbid Obesity due to calorie excess
- Ability to exercise is significantly impaired by gait dysfunction, DJD, etc.
Long history of wounds
- Continue wound care
History of MRSA colonization
History of Urinary Tract Infection
DVT Prophylaxis: Lovenox
Code Status: Full
Anticipated Discharge: Within 24 hours
Subjective/Interval History
-
Date of Service: August 09, 2023
Frustrated with fluid restriction not very motivated to move around in bed for nursing for turns. No significant respiratory distress
Objective Data
-
Labs:
Laboratory Results
08/09/23
04:29
WBC 7.0
Hgb 10.1 L
Hct 33.4 L
Plt Count 210
Sodium 134 L
Potassium 3.5
Chloride 97 L
Carbon Dioxide 28
BUN 18 H
Creatinine 0.8
Glucose 97
Calcium 8.9
Vital Signs:
Vital Signs
Temp Pulse Resp BP Pulse Ox
98 F 73 14 124/80 98
08/09/23 08:02 08/09/23 08:02 08/09/23 03:36 08/09/23 08:02 08/09/23 08:02
I&O
08/08/23 08/09/23 08/10/23
06:59 06:59 06:59
Intake Total 720 / 720 1600 / 1600
Output Total 900 / 900 2009
Balance -180 / -180 -410 / -410
Review of Systems
-
History Source: Patient
Physical Exam
-
General: Obese
HEENT: Normocephalic
Cardiac: Regular Rhythm and Murmur
Musculoskeletal: Edema, Left Upper Extrem and Edema, Right Lower Extrem
Neuro: Awake and Alert
Psych: Calm
Data Reviewed
-
Total Time Spent with Patient (in minutes): 56
Labs: Labs Reviewed by me
--- NOTE | 2023-08-09 10:59 | W.PN.GI.CBS2 ---
Today's Communication / Plan
-
gerd precautions
pepcid as outpatient
Assessment / Plan
-
This patient is a 72-year-old woman with a history of severe aortic stenosis, ambulatory dysfunction, CHF, lymphedema who has dysphagia and a family history of esophageal cancer. Her dysphagia appears mainly to solids and she has a questionable
underlying GERD with a previous normal endoscopy. For now would do the following:
1. pepcid twice a day as outpatient
2. gerd precautions which are Difficult with ambulatory dysfunction
3. did have an esophagram this morning which did not show any mass.
will sign off call with questions
Subjective
Subjective
Date of Service: August 09, 2023
Pt with no dysphagia yesterday with pepcid.
Objective
Data Reviewed
Laboratory Data:
Laboratory Results
08/09/23 04:29
08/09/23 04:29
Laboratory Results
Magnesium 1.6 mg/dl (1.6-2.3) 08/09/23 04:29
Total Bilirubin 1.5 mg/dl (0.2-1.3) H 08/07/23 02:49
AST 26 U/L (14-36) 08/07/23 02:49
ALT 13 U/L (0-35) 08/07/23 02:49
Alkaline Phosphatase 143 U/L (38-126) H 08/07/23 02:49
Vital Signs and I&O:
Vital Signs
Temp Pulse Resp BP Pulse Ox
98 F 73 14 124/80 98
08/09/23 08:02 08/09/23 08:02 08/09/23 03:36 08/09/23 08:02 08/09/23 10:48
I&O
08/08/23 08/09/23 08/10/23
06:59 06:59 06:59
Intake Total 720 / 720 1600 / 1600
Output Total 900 / 900 2009
Balance -180 / -180 -410 / -410
Physical Exam
Physical Exam
GI: Soft and Non Tender
[2023-08-09 11:05] VITALS: BP 119/80
--- NOTE | 2023-08-09 11:22 | W.PN.CD ---
Addendum entered and electronically signed by Ivelisse Estrada MD 08/09/23 11:58:
I saw and examined the patient.
The DIRECTOR SUPPLY note was reviewed and I agree with the note.
Comment: she is feeling better since admission. Her main concern is chronic lymphedema and pain in her right foot, but also with cp and increase dyspnea in the last several weeks. She is walking with a walker and trying to pack up her home for sale.
She had a rrr, s1, don't appreciate an S2, lungs cts, massive b/l edema with skin changes of lymphedema up to the mid thigh b/l worse in the right foot and leg. She is AAO x3. Echo with new drop in LVEF to 36%, rv slightly dilated and hypokinetic
with mod PHTN and mod MR, Severe of bicuspid valve once again noted with asc ao at 4.0. Discussed at length that she has multipile indications for valve intervention. There is no medical fix to the this issue. Will need a cath as first step in
evaluation if she is interested in intervention. She would like cath. Her son is a manager commercial sales in [place], left a message to discuss. NPO after midnight. Will hold off on GDMT until post cath. Wound care to continue.
Original Note:
Today's Communication / Plan
-
Weight appears to be inaccurate
Transition furosemide from PO to IV
Ischemic eval to be determined
Impression / Plan
-
BACKGROUND: 72F who presented with weakness and shortness of breath.
HFrEF, acute on chronic
-Presented with SOB, vascular congestion on CXR, & proBNP 20K
-LVEF 60-65% in Sep, 2019, now EF 36%
-GDMT as tolerated
-PITO/ARB: Valsartan 160mg
-SGLT2: Case management to [facility]
-MRA: She presented with hyperkalemia
-Trend daily weight, I/Os, and BMP with diuresis
-Heart failure education
Aortic stenosis, bicuspid, severe
-Peak/mean gradients 89/56 mmHg
-LVOT 2.0cm, KORI 0.44 with trace AR
Abnormal troponin, type unknown
-Trend to peak, chest pain free
-Likely non-ischemic myocardial injury in the setting of severe and acute heart failure
Chest pain, type unknown
-No CP since admission
-Today (08/08/2023) she mentioned that over last several weeks/months she has had emotional stress induced moderate central chest heaviness, longest 2 min in duration
IBS with chronic diarrhea
Ascending thoracic aortic dilatation
Moderate mitral regurgitation.
Moderate pulmonary HTN
Hypertension, BP at goal on current medical therapy
Ambulatory dysfunction requiring rolling walker
Morbid obesity, BMI > 45
Long history of lymphedema
Chronic lower extremity wounds, outpatient wound care
Severe orthopedic disease
Outpatient palliative care, last seen 07/[address] Moreno
History of MRSA colonization
Subjective:
LE edema and SOB are improving with diuresis
Physical Exam
Vital Signs/Labs
Vital Signs
Temp Pulse Resp BP Pulse Ox
97.2 F 91 18 119/80 94
08/09/23 11:05 08/09/23 11:05 08/09/23 11:05 08/09/23 11:05 08/09/23 11:05
08/08/23 08/09/23 08/10/23
06:59 06:59 06:59
Actual Weight 104.871 kg 107.229 kg
08/09/23 04:29
08/09/23 04:29
Magnesium 1.6 mg/dl (1.6-2.3) 08/09/23 04:29
Triglycerides 83 mg/dl (10-149) 08/07/23 02:49
LDL Cholesterol, Calc 53 mg/dl 08/07/23 02:49
VLDL Cholesterol, Calc 16 mg/dl (0-30) 08/07/23 02:49
HDL Cholesterol 35 mg/dl 08/07/23 02:49
08/06/23
22:44
Bdo-G-Hrbeeazqzve Pept
LAB Results
08/06/23 08/07/23 08/07/23
22:44 02:49 08:51
Troponin I 0.066 H* 0.078 H* 0.090 H*
08/07/23
14:28
Troponin I Cancelled
Physical Exam
Constitutional: No acute distress and Comfortable
EENT: Anicteric and Moist mucous membranes
Cardiovascular: Rhythm & rate is regular, Pedal edema present, Systolic murmur present and S1S2 is normal
Respiratory: Respiratory effort normal and Lungs clear to auscul.
GI: Soft, Distention absent, Flat, Non tender and Normal bowel sounds
Neuro/Psych: AO x 3
Other: Skin (warm and dry; LE wrapped)
Data Reviewed
-
Date of Service: August 09, 2023
--- NOTE | 2023-08-09 11:34 | CM ---
Addendum entered by Shawn Shields 08/09/23 14:01:
Per PAPERHANGER request: Per month cost of the following: Farxiga 10mg daily is $239.00; Jardiance 10 mg daily is $247.00; Entresto 24-26 mg BID is $ 169.00.
Original Note:
Met with patient to discuss discharge plan of care. PT recommended for SNF for intermediate and rehab services. patient has private care at home and had told previous CM that she wanted to try and increase the hours at home for private care.
Upon questioning, patient has not done so as yet. She is amenable to sending referral to [facility]. This CM will send referral.
[2023-08-09] MEDS: ASPIRIN ENTERIC COATED 325 MG PO (12:22)
--- NOTE | 2023-08-09 12:33 | WOUNDNOTE ---
R POSTERIOR LOWER LEG
--- NOTE | 2023-08-09 12:33 | WOUNDNOTE ---
L MEDIAL LOWER LEG AND ANKLE
--- NOTE | 2023-08-09 12:34 | WOUNDNOTE ---
GLUTEAL CLEFT AND SACRUM
--- NOTE | 2023-08-09 12:38 | WOUNDNOTE ---
R POSTERIOR THIGH AND BUTTOCKS
--- NOTE | 2023-08-09 12:40 | WOUNDNOTE ---
WON RN note: Patient admitted with CHF.
See H&P for complete history.
PMH: Chronic lymphedema with venous ulcers, L heel DTI, s/p I&D, HTN, obesity and L knee replacement.
Wound Location and type/assessment: Patient last seen 11/2020 for venous leg ulcers. R leg with weeping skin no definitive visible ulcers, proximal legs near knees patient reports itchy. Crease of R medial ankle with intact dry scab. L lower leg with
dry patches of healed venous ulcers, medial ankle macerated vs scar. Heels are intact. Palpable positive pedal pulses. Last ARTURO of DP on R leg- 0.96 and L leg 0.94. Patient states she uses compression at home and Lymphedema pumps. Patient states it
is difficult to ambulate at home, sits in recliner chair most of day. Turned patient with assist of nurse Wake[place]. Patient has Purwick, leaked onto Ultrasorb pad which was changed. Sacrum intact, R distal buttock with healed ulcer, scar visible.
Perineum/buttocks with dark brown discoloration, suspect chronic from prolonged sitting. Skin folds with mild MASD, fungal powder in use.
Appetite: NPO for testing.
Pressure redistribution devices in place: On [facility] [place] Air bed, overlay removed as not necessary. encouraged patient to turn q few hours. Pillow placed under calves.
Plan: Vaseline applied to legs. Adaptic ABD pads and kerlix applied to R leg, silicone foam to scab on anterior ankle. L medial ankle and leg with dry dressing under Knee high stephenie wraps. Patient tolerating for now but states they become
uncomfortable in a few hours usually. Encouraged to keep on for as long as possible with leg elevation.
Will confirm orders with hospitalist and updated nurse Wakefield. Updated care plan and will follow as needed.
[2023-08-09 14:01] LABS: Troponin I 0.083 ng/ml
--- NOTE | 2023-08-09 14:41 | PN.CDI ---
CDI
- -
CDI:
Physician Documentation Request
Admit Date: 08/06/23 23:59
Dear Doctor Lisbeth,
Please review the following and provide your response in the progress notes.
Clinical Indicators:
- 08/08 Cardiology note 'HFrEF, acute on chronic'
- 'LVEF 60-65% in Sep, 2019, now EF 36%'
- 08/08 Progress Notes 'Acute on Chronic HFpEF'
Please provide further specificity regarding the most likely type and acuity of CHF you are evaluating, treating or monitoring.
Acute on chronic HFrEF
Acute on chronic HFpEF
Other
Use of terms such as suspected, likely, concern for, or probable (associated with a specific diagnosis that is being evaluated, monitored, or treated as if it exists) are acceptable and can be coded in the inpatient setting, when documented at the
time of discharge.
Thank you,
Ajit Saini RN
CDI Specialist
Please use your independent medical judgment in providing your response.
--- NOTE | 2023-08-09 14:44 | PN.CDI ---
CDI
- -
CDI:
Physician Documentation Request
Admit Date: 08/06/23 23:59
Dear Doctor Lisbeth,
Please review the following and provide your response in the progress notes.
Clinical Indicators:
- 08/08 Cardiology note 'Abnormal troponin...Likely non-ischemic myocardial injury in the setting of severe and acute heart failure'
- 08/08 Progress note 'Elevated TPNI - Non-[place] Troponin Elevation due to acute HF '
Laboratory Tests
08/06/23 08/07/23 08/07/23
22:44 02:49 08:51
Troponin I 0.066 H* 0.078 H* 0.090 H*
08/09/23
13:17
Troponin I 0.083 H*
Please clarify the following regarding the documented elevated troponins:
Non-ischemic myocardial injury
Type II MO due to acute heart failure
Other
Use of terms such as suspected, likely, concern for, or probable (associated with a specific diagnosis that is being evaluated, monitored, or treated as if it exists) are acceptable and can be coded in the inpatient setting, when documented at the
time of discharge.
Thank you,
Ajit Saini RN
CDI Specialist
Please use your independent medical judgment in providing your response.
[2023-08-09 15:00] VITALS: BP 103/76
--- NOTE | 2023-08-09 16:12 | CS.PSYCHR ---
Consult Summary - Psychiatry
-
Pt is 72 female who presented to ED after calling EMS due to progressive weakness, bilat leg edema, SOB. Pt has morbid obesity, ambulatory dysfunction. Pt for cardiac cath tomorrow; Psychiatry asked to evaluate due to brother's report of pt
expressing suicidal ideation prior to admission. On interview, pt denies any suicidal ideation. She states she expressed frustration about her situation after receiving an IRS audit; states she sought her brother's help. Pt states she is unhappy
with her health picture/being unable to ambulate; states her health declined a few years ago. Pt states she is still motivated to try to address her health problems, hopes to do something about her right foot and inability to walk. She reports
intolerable pain in her foot after being on it a few minutes, despite trying different shoes and working with PT. Pt denies significant depression. She is engaged in the interview with full and appropriate affect.
PMH: HTN, morbid obesity, amb dysfunc, CHF, severe
Psych Hx: denied
SH: lives alone for many years, has CARDIAC/VASCULAR SONOGRAPHER support. 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 States son has access to assist with her bank account but no other POA
MSE: resting in bed, watching TV, wearing glasses. Alert and oriented, calm and cooperative. Good eye contact. Speech coherent, thought clear/goal-directed. Pt states she is in charge of her life decisions and wants care to improve her health.
Affect appropriate, mood stable. Denies SI. No signs of psychosis. Insight and judgement appear intact
Imp: Unspecified situational depression. Pt denies any suicidal ideation
Rec: No psychiatric intervention needed. Outpatient therapy may be helpful upon return home
Will follow peripherally and reassess if status changes
[2023-08-09] MEDS: LASIX 40 MG IV (17:23)
[2023-08-09] MEDS: LOVENOX 40 MG SC (17:23)
[2023-08-09] MEDS: VESICARE 10 MG PO (17:28)
[2023-08-09 19:36] VITALS: BP 102/76
[2023-08-09] MEDS: PROTONIX 40 MG PO (21:41)
[2023-08-09 23:43] VITALS: BP 107/73
[2023-08-10] VITALS (42 sets, daily range): BP systolic 83–159; BP diastolic 38–130; BMI 44.9
[2023-08-10] MEDS: ULTRAM 50 MG PO ×2 (06:12→18:15)
[2023-08-10] MEDS: NEURONTIN 300 MG PO ×2 (06:12→18:14)
[2023-08-10 06:45] LABS: Hematocrit 34.2 % (37.0-47.0); Hemoglobin 10.3 g/dL (12.0-16.0); Mean Corp Hgb Conc. 30.1 g/dL (33.0-37.0); Mean Corpuscular Hgb 26.1 pg (27.0-31.0); Mean Corpuscular Volume 86.6 fL (81.0-99.0); Mean Platelet Volume 9.8 fL (7.4-10.4); Platelet Count 210 10^3/uL (130-400); Red Blood Cell Count 3.95 10^6/uL (4.20-5.40); Red Cell Dist. Width 20.3 % (11.5-14.5); White Blood Cell Count 7.7 10^3/uL (4.8-10.8)
[2023-08-10 07:10] LABS: Blood Urea Nitrogen 17 mg/dl (7-17); Calcium 8.2 mg/dl (8.4-10.2); Carbon Dioxide 30 mmol/L (22-30); Chloride 97 mmol/L (98-107); Estimated Creatinine Clearance 60 ml/min; Glucose 86 mg/dl (70-99); Potassium 3.4 mmol/L (3.5-5.1); Sodium 133 mmol/L (135-145); eGFR > 60.00
[2023-08-10] MEDS: DIOVAN 160 MG PO (08:34)
[2023-08-10] MEDS: DESENEX/MITRAZOL/ZEASORB 1 APPLIC TOPICAL ×2 (08:35→20:05)
[2023-08-10] MEDS: LASIX 40 MG IV ×2 (08:35→16:10)
[2023-08-10] MEDS: ASPIR LOW (ENTERIC COATED) PO (08:35)
[2023-08-10] MEDS: PROTONIX 40 MG PO ×2 (08:35→20:06)
[2023-08-10] MEDS: PEPCID 20 MG IV ×2 (08:36→20:06)
[2023-08-10] MEDS: NSS (PRESERVATIVE FREE) 8 ML IV ×2 (08:36→20:06)
--- NOTE | 2023-08-10 08:39 | W.PN.HOSP.TC ---
Today's Communication/Plan
-
Awaiting results of cardiac cath
Reviewed results of psychiatry
She remains sedentary and main complaints in relation to her lower extremity edema and inability ambulate with her right leg concerns
No doubt will need rehab course at the very least
Continuing on IV diuresis
Replete electrolyte deficits
Assessment / Plan
Assessment / Plan
Physical Exam
General: No Apparent Distress and Morbidly Obese
HEENT: Normocephalic, Anicteric and Moist mucous membranes
Respiratory: CTAB
Cardiac: S1/S2, Regular Rhythm, Tachycardia and Murmur (Loud ejection systolic mm at LUSB )
GI: Soft, Non Tender, Non Distended and Normal Bowel Sounds
Musculoskeletal: Edema, Left Lower Extremity (massive ), Edema, Right Lower Extremity (massive ) and Other (both legs are wrapped )
Neuro: AO x 3
Psych: Calm
Assessment/Plan
Progressive Dyspnea
Presentation with Increasing Generalized Weakness and Leg Swelling
Acute on Chronic HFpEF -- likely related to patient's severe aortic stenosis
Non compliance with Lasix (for the past 2 to 3 weeks prior to presentation) due to the fact that it's hard for her to get and go to the bathroom
Lives independently at home but spends most of her time on recliner
- CXR as per radiologist's report showed 'Mild pulmonary vascular congestion. Left midlung atelectasis. Cardiomegaly.'
- proBNP was 90885 on presentation
- Continue PO Lasix 40 mg BID (patient takes 40 mg daily at home)
- Holding Valsartan due to reasons below/may now be able to resume as potassium improved
- Daily Is and Os
- Daily BMP
- Cardiology consulted, recommendations appreciated/GDMT being held until after cath results
Volume overload ; chronic with acute element due to non compliance with Lasix
Chronic Lymphedema of both legs
- PO fluid restriction
- Hold amlodipine for now.
- Continue diuresis as above
Hyperkalemia
- Continue to hold Valsartan
- f/u K in response to diuresis
-Cannot be resumed
Elevated TPNI - Non-KY Troponin Elevation due to acute HF
No CP
- Trending troponins -- although elevated, they show an unremarkable trend
Severe Aortic Stenosis
History of bicuspid aortic valve
Patient denies lightheadedness / dizziness.
- Cardiology consulted, recommendations appreciayed/2D echocardiogram results compared to prior echo 2020 shows an EF is decreased from 65 to 36% right ventricle is dilated and hypokinetic with moderate pulmonary hypertension and also new with
severe aortic stenosis again being seen with mean gradient across the valve of 89 / 56 mmHg/also I dilated right ventricle with stage II diastolic dysfunction
-For cardiac cath August 09
Essential Hypertension
- Held amlodipine as noted above as this can worsen edema.
- Held valsartan due to hyperkalemia
- Observe BP
Chronic ambulatory dysfunction: multifactorial origins
mostly in recliner but walk short distance to BR
Multifactorial gait dysfunction
History of fall with persistent neck pain
History of Rhabdomyolysis
DJD, Morbid obesity
- s/p bilateral TKA.
- Has chronic L hip pain
- Pain control
-Patient remains very sedentary and even resistant to changes in bed position at times.
History of GERD
History of Irritable Bowel Syndrome
History of Crohn's Disease?
Morbid Obesity due to calorie excess
- Ability to exercise is significantly impaired by gait dysfunction, DJD, etc.
Long history of wounds
- Continue wound care
History of MRSA colonization
History of Urinary Tract Infection
Depression and anxiety
-By history and discussion of the family not been treated
-She herself has been resistant to therapy
-May have related to family members that she wanted to
-She was seen and evaluated by psychiatry here no evidence of any active depression or suicidal ideation/seemingly appropriate for decision-making also
-She continues to be steadfast in refusing intervention for her severe aortic stenosis
-She remains having a lot of frustrations in relation to her family issues especially with her brother and son want her to pursue intervention for her valve which she is resistant to since 'it is not bothering me'
DVT Prophylaxis: Lovenox
Code Status: Full
Anticipated Discharge: Within 24 hours
Subjective/Interval History
-
Date of Service: August 10, 2023
Had an unremarkable night met with psychiatry she again denies any suicidal intent or thoughts or actions in the past to hurt herself. She admits to being despondent over her situation and her family situation bothers her. She remains vehement
that she would like to avoid any surgery for her valve.
Objective Data
-
Labs:
Laboratory Results
08/10/23
04:59
WBC 7.7
Hgb 10.3 L
Hct 34.2 L
Plt Count 210
Sodium 133 L
Potassium 3.4 L
Chloride 97 L
Carbon Dioxide 30
BUN 17
Creatinine 0.9
Glucose 86
Calcium 8.2 L
Vital Signs:
Vital Signs
Temp Pulse Resp BP Pulse Ox
98.5 F 106 16 111/80 93
08/10/23 07:53 08/10/23 07:53 08/10/23 07:53 08/10/23 07:53 08/10/23 07:53
I&O
08/09/23 08/10/23 08/11/23
06:59 06:59 06:59
Intake Total 1600 / 1600 1560 / 1560
Output Total 2009 3150 / 3150
Balance -410 / -410 -1590 / -1590
Review of Systems
-
History Source: Patient
Constitutional: Reports Fatigue
EENT: Reports No Symptoms Reported
Respiratory: Reports No Symptoms
Cardiac: Reports No Symptoms
Musculoskeletal: Reports Joint Pain
Skin: Reports Sores and Skin Thickening
Physical Exam
-
General: Morbidly Obese
HEENT: Normocephalic
Respiratory: Clear to Auscultation
Cardiac: Regular Rhythm and Murmur
GI: Soft and Nontender
Musculoskeletal: Edema, Right Lower Extrem and Edema, Left Lower Extrem (Both an Tanmay wrap)
Neuro: Awake, Alert and Oriented
Data Reviewed
-
Total Time Spent with Patient (in minutes): 45
Labs: Labs Reviewed by me (Potassium 3.4 sodium 133)
[2023-08-10] MEDS: ASPIR LOW (ENTERIC COATED) 81 MG PO (08:46)
[2023-08-10] MEDS: KCL IV (09:04)
--- NOTE | 2023-08-10 09:48 | W.PN.UPDATE ---
Update Note
Progress Note Update
I had a long talk with the patient during the informed consent process. I explained that the purpose of the study today was to evaluate her coronary arteries prior to aortic valve replacement. She is a very poor surgical candidate and will almost
certainly be a better TAVR candidate. She has a class I indication for AVR. She has been unsure as to whether she would accept AVR in any form (surgical or TAVR). I explained to her that the catheterization procedure is done at a small but real
risk and quoted a 1-2 and 1000 risk of or stroke from a diagnostic study and a 1 and 100 risk of if we moved to PCI. I also suggested that if she is not willing to have AVR then there would be little reason to proceed with
catheterization today. I suggested that if she is not committed to proceeding toward AVR we should defer coronary angiography until she decides that she wants to proceed with AVR if offered. All questions were answered. She has opted to proceed
with a diagnostic only study understanding the risks as described above. She will not be offered same setting PCI and understands that she may need to come back for that if we feel it is medically appropriate prior to TAVR.
--- NOTE | 2023-08-10 09:53 | ITS.CL.CATH ---
Game Tester - Catheterization
Cardiac Catheterization
Procedure Report:
CARDIAC CATHETERIZATION REPORT
Date of Procedure: 08/10/2023
Referring: Radha Estrada MD
Indication: Severe aortic stenosis, new LV dysfunction, severe pulmonary hypertension
HEMODYNAMIC DATA
AO: 95/67
LV: Not done
PCWP: 31
PA: 65/38
RV: 65/22
RA: 21
Oximetry: Ao 97%, PA 54%, cardiac output 3.3, cardiac index 1.7
LEFT VENTRICULOGRAPHY: Not done
CORONARY ANGIOGRAPHY
Dominance: Right
Left Main: Normal
LAD: Normal
Circumflex: Normal
RCA: 99% ostial stenosis. There is sluggish flow into the proximal RCA
Of note, our plan was to perform this procedure from the right radial artery. Access was easily obtained and a 5 Somali right radial artery sheath placed. Heparin 6000 units was administered. There was significant innominate tortuosity; however,
we were able to engage the left coronary and perform left coronary angiography in multiple projections. We were unable to access the right coronary artery despite using JR4 and AL-1 diagnostic catheters. A 5 Somali DAVIN catheter could not be
advanced through the innominate artery due to spasm and at this point it was clear that we would be unable to access the ascending aorta from the right radial artery approach. A decision was made to access the right femoral artery to complete the
study with right coronary angiography. After easily accessing the right femoral artery using the micropuncture technique, a 5 Somali sheath was placed. We were unable to pass a standard J-wire past the proximal external iliac artery. Similarly, a
hydrophilic small J-wire and an angled Glidewire were not not able to be passed into the common iliac. Although right femoral artery sheath pressure was identical to previously recorded aortic pressures, we opted for left femoral artery access as
there was some contrast hanging up on a puff through the RFA sheath consistent with retrograde dissection. A 5 Somali LFA sheath was placed easily using a micropuncture technique and a 6 Somali sheath placed in the left femoral vein. This allowed
us to perform right heart catheterization, selective right coronary artery angiography and abdominal aortography with bilateral iliofemoral runoff.
Lower extremity angiography: Aortography above the femoral bifurcation was performed at the conclusion of the procedure to assess the right iliofemoral vessels and to assess access for possible TAVR bilaterally. There is no evidence of
atherosclerotic disease in the right common femoral artery and no angiographic evidence of residual dissection in the common femoral artery. Both the right and left femoral artery arteriotomy sites are in the mid common femoral artery. Vessel
diameter estimates by angiography suggest that she will be a candidate for transfemoral TAVR
Closure Device: None-an R band was used for the right radial artery access site. Manual compression was used for the RFA, LFA, and LFV access sites.
Radiation (mGy): 631
DAP (cm2.Gy): 65.9
Fluoroscopy time: 20.5 minutes
CONCLUSIONS
1: Borderline systemic blood pressure
2: Markedly elevated left and right heart filling pressures with moderate to severe pulmonary hypertension
3. Low cardiac output state
4. Single-vessel CAD with subtotal occlusion of the ostial RCA
5. No significant atherosclerotic disease of the iliofemoral vessels bilaterally
6. No PCI attempt was contemplated as the patient requested that only a diagnostic study be performed
7. Known severe aortic stenosis (bicuspid valve with mean gradient 56 mmHg) not evaluated invasively
8. She will need continued diuresis and may benefit from a period of inotropic support
9. It is unclear whether she will agree to to have a heart and similarly unclear whether TAVR will improve her prognosis given the evidence of right heart dysfunction by echo and cath
Copy to: Radha Estrada MD, Ailyn Gomez MD
Peña Ricardo MD, [facility], [facility]
--- NOTE | 2023-08-10 10:00 | PTCARENOTE ---
Report given to label coder. Pt updated at bedside.
[2023-08-10 10:35] LABS: ACT-LR - POC 223 Seconds (116-155)
--- NOTE | 2023-08-10 13:12 | PTCARENOTE ---
Pt. being transferred to IVU post cath. Belongings brought over to new room. Called and left message for IVU nurse to give report.
[2023-08-10] MEDS: KCL 160 MEQ IV (14:27)
[2023-08-10] MEDS: ULTRAM PO (14:28)
[2023-08-10] MEDS: NEURONTIN PO (14:28)
--- NOTE | 2023-08-10 14:41 | PTCARENOTE ---
Rec'd report from Zack from 2N and from Elsa in the geotechnical laboratory technician. Pt s/p cardiac cath. R radial band in place, air all out. Site is C/D/I w/no signs or symptoms of bleeding or hematoma. SpO2 on R hand 78-80% on RA. Pt placed back on O2 via NC at 2L,
increased to 3L to get SpO2 sats to 90-92%. Bilat groin sites w/dressings C/D/I, w/no signs or symptoms of bleeding or hematoma. VS stable. Pt AAOX3 drowsy but arousable. Pt agitated & complaining about 'being woken up too much'. This RN advised pt
while in the hospital she needs to be assessed & will be woken up at times. Pt w/no c/o CP at this time. Pt w/call finch within reach & plan of care ongoing.
--- NOTE | 2023-08-10 15:32 | CONSULT.STRU ---
Consultation
-
Date/Time Consultation Requested: 08/10/2023 1408
Date/Time Consultation Performed: 08/10/2023 1410
Requesting Provider: Lisa GREENWOOD/Peña Ricardo MD
Performing Provider: KRYSTYNA Tanner
Reason for Consultation: Aortic stenosis, TAVR evaluation
Patient History
Physicians
Family Physician: Ailyn Gomez
Outpatient Promotional Advertising Assistant: Eli Estrada
Primary Promotional Advertising Assistant: Natalie
History of Present Illness
Patient is a 72-year-old woman who was admitted after being brought to the hospital by EMS. Patient states she had her health aid call them because she noticed she was becoming more swollen and knew it was time to go to the hospital. She had
stopped taking her lasix because it was too difficult to get back and forth to the bathroom. She is home bound with severe ambulatory dysfunction, morbid obesity, lymphedema, and known severe aortic stenosis. She can ambulate very short distances
with a walker with difficulty. She is limited to two rooms of the first floor of her home and sleeps in a recliner. She states she has not left her home in at least 6 years. Up until about two years ago she said she did manage to do some light
housework but over the past two years her ability to ambulate has declined. She walks using a walker dragging her right foot and also has chronic right foot pain. She noted she had emergent surgery after developing an infection in that right foot a
couple years ago from an open wound. She has a history of wound issues related to her chronic lymphedema. She has her food delivered and has home health aides come in daily to help with ADLS and lymphedema management. She states she has no other
support of family or friends. He son is a direct sales representative but lives in [place]. Dr. Gomez performs home visits. Patient states she 'would be ok if her heart was to just stop'. She had Dr. Gomez recently place a DNR on her chart. Patient was
seen by psych yesterday and not felt to be suicidal. She appears to be frustrated with her poor quality of life. She feels it is her inability to bear weight and walk on her right foot is what is limiting her and not ELIAS. She denies chest pain,
palpitations. She does sleep in a recliner and probably has some level of orthopnea.
Reviewed the pathophysiology of aortic stenosis with the patient. Explained the treatment options of SAVR and TAVR. Explained the TAVR evaluation process including CT TAVR scan, CT surgery consult, dental clearance and Heart Team discussion.
Provided copy of the TAVR education booklet with contact information. Reviewed risks of TAVR including PPM, bleeding, stroke and . Allowed for and answered questions. Explained that Dr. Moreno of CT surgery will be in to see her during this
visit and I will be back tomorrow to follow up. Asked patient to review all information and we can discuss further if she would like to proceed with treatment.
Past Medical History
Past Medical History: CAD, CHF, ELIAS, GERD, HTN, Valvular Disease (Bicuspid aortic valve) and Other
Lymphedema bilateral LE
IBS
Past Surgical History
Past Surgical History: Orthopedic (Bilateral TKR) and Other (Lithotripsy, right foot I&D)
Dental History
No dentist. Has not been in greater than 10 years. She is homebound and unable to get to the dentist.
Family History
Mother: at Age
Father: at Age
Social History
Alcohol: None
Drug: None
Tobacco: Non-Smoker
Personal:
Living: Alone (has home health aides come into home to help. Confined to two rooms of home on 1st floor due to limited mobility. Sleeps in a recliner.)
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
Allergies
Allergy/AdvReac Type Severity Reaction Status Date / Time
banana [Banana] Allergy UPSET Verified 06/21/20 08:10
STOMACH
Sulfa (Sulfonamide Allergy RASH, HIVES Verified 06/21/20 08:10
Antibiotics)
DUST Allergy Unknown Uncoded 06/21/20 08:10
POLLEN Allergy Unknown Uncoded 06/21/20 08:10
TREES Allergy Unknown Uncoded 06/21/20 08:10
Home Medications
�Medication �Instructions �Recorded �Confirmed �Type
ferrous sulfate 325 mg (65 mg 325 mg PO QPM Supplement 06/21/20 08/06/23 History
iron) tablet (FeroSul)
gabapentin 300 mg capsule 300 mg PO Q6H Pain 06/21/20 08/06/23 History
loperamide 2 mg capsule 2 mg PO QIDPRN PRN diarrhea 06/21/20 08/06/23 History
solifenacin 5 mg tablet 10 mg PO QPM Urinary issue 06/21/20 08/06/23 History
tramadol 50 mg tablet 50 mg PO Q6H Pain #12 tabs 11/14/20 08/06/23 Rx
acetaminophen 500 mg tablet 500 - 1,000 mg PO Q6H Pain 08/06/23 08/06/23 History
furosemide 40 mg tablet 40 mg PO DAILY Fluid 08/06/23 08/06/23 History
Retention/Swelling
omeprazole 20 mg capsule,delayed 20 mg PO DAILY Gastrointestinal 08/06/23 08/06/23 History
release Issue
valsartan 160 mg tablet 160 mg PO DAILY Blood Pressure 08/06/23 08/06/23 History
STS%
STS %: 3.89% AVR/ 5.62% AVR/CABG
Review of Systems
-
History Source: Patient
General: Reports Other (Chronic right foot pain)
HEENT: Reports No Symptoms
Respiratory: Reports ELIAS
Cardiac: Reports Edema (bilateral LE)
Abdomen/GI: Reports Reflux, Diarrhea and Other (IBS)
: Reports Incontinence (Stress incontinence)
Musculoskeletal: Reports Edema (bilateral LE, right foot)
Skin: Reports Other (discoloration bilateral LE)
Neurological: Reports Weakness
Vascular: Reports No Symptoms
Physical Exam
Vital Signs
Temp 98.2 F 08/10/23 14:21
Temp route: Oral 08/10/23 14:21
Pulse 119 08/10/23 14:17
Rhythm: Normal sinus rhythm 08/10/23 09:00
With- PVC's Monomorphic 08/09/23 08:51
Resp Rate 18 08/10/23 14:21
Blood pressure 116/83 08/10/23 14:17
Blood pressure extremity used: Left upper arm 08/10/23 14:21
Position: Lying 08/10/23 14:21
MAP (cuff-Tawana Monitor) 95 08/10/23 14:17
SaO2 90 08/10/23 14:19
Nasal Cannula flow liters per minute 2 08/10/23 14:19
Oxygen Mode of Delivery Room air 08/10/23 11:45
Pulse Ox at Rest 95 08/07/23 16:15
Can the patient verbally communicate their pain? Yes 08/10/23 14:15
Pain scale rating: Asleep 08/10/23 14:15
Actual Weight 104.19 kg 08/10/23 06:00
Body Mass Index (BMI) 44.9 08/10/23 06:00
Supine- Blood Pressure 123/78 08/07/23 16:15
Supine- Pulse 65 08/07/23 16:15
Labs
08/10/23 04:59
08/10/23 04:59
Troponin I 0.083 ng/ml H* 08/09/23 13:17
Kcy-X-Ybxjrmaipui Pept 80446 pg/ml 08/06/23 22:44
Arterial Blood Gases
pH 7.47 (7.35-7.45) H 08/07/23 03:19
pCO2 35 mmHg (32-35) 08/07/23 03:19
pO2 66 mmHg (83-108) L 08/07/23 03:19
HCO3 25.5 mmol/L (21-28) 08/07/23 03:19
Base Excess 2.0 mmol/L 08/07/23 03:19
ABG O2 Sat (Measured) 94.2 % (94-98) 08/07/23 03:19
O2 Delivery Level 08/07/23 03:19
Urinalysis
Urine Color Straw 08/07/23 15:27
Urine Clarity Slightly cloudy (Clear) 08/07/23 15:27
Urine pH 5.0 (5.0-9.0) 08/07/23 15:27
Ur Specific [place] 1.010 (<1.030) 08/07/23 15:27
Urine Ketones Negative (Negative) 08/07/23 15:27
Ur Occult Blood Reflex 2+ (Negative) A 08/07/23 15:27
Urine Bilirubin Negative (Negative) 08/07/23 15:27
Leukocyte Esterase Rfl 2+ (Negative) A 08/07/23 15:27
Urine RBC 7-10 /HPF (0-2) A 08/07/23 15:27
Urine WBC (Reflex) 16-20 /HPF (0-5) A 08/07/23 15:27
Ur Squamous Epith Cells 0-2 /LPF (Few) 08/07/23 15:27
Urine Bacteria (Reflex) Many (Negative) A 08/07/23 15:27
Urine Glucose Negative (Negative) 08/07/23 15:27
Urine Albumin (Reflex) Negative (Neg - Trace) 08/07/23 15:27
Diagnostic Studies
08/09/2023 Echocardiogram:
CONCLUSIONS
Moderately reduced left ventricular systolic function. Global hypokinesis.
Left ventricular ejection fraction is 36% by volumetric assessment.
Enlarged right ventricular size with reduced systolic function.
Stage II diastolic dysfunction suggestive of abnormal relaxation and increased
filling pressures
Moderate mitral regurgitation.
Calcified bicuspid aortic valve. Trace aortic regurgitation.
Severe aortic stenosis with peak/mean gradients across the aortic valve are
89/56 mmHg.
Moderate pulmonary hypertension.
Compared to previous echo 11/12/2020, the ejection fraction has decreased from
60-65% to 36%. The right ventricle is dilated and hypokinetic. Moderate
pulmonary hypertension is new.
Indications:
aortic stenosis, heart failure
Rhythm: Sinus
Portable Study: No
Technical Quality: Good
Contrast: None
BP: 119 / 68
PROCEDURE
A complete Transthoracic Echocardiogram was performed utilizing two-dimensional
evaluation with color flow and spectral Doppler analysis.
FINDINGS
Left Ventricle
Mild concentric left ventricular hypertrophy. Left ventricle is mildly dilated.
Moderately reduced left ventricular systolic function. Left ventricular
ejection fraction is 36% by volumetric assessment. Global hypokinesis. Stage
II diastolic dysfunction suggestive of abnormal relaxation and increased
filling pressures.
Right Ventricle
Enlarged right ventricular size. Reduced right ventricular systolic function.
Left Atrium
Indexed LA volume is moderately abnormal (42-48 mL/m2).
Right Atrium
Moderately dilated right atrium.
Mitral Valve
Mitral annular calcification. Thickened mitral valve leaflets. Mitral valve
opens normally. Moderate mitral regurgitation.
Aortic Valve
Calcified bicuspid aortic valve. Thickened aortic valve with restricted leaflet
motion. Severe aortic stenosis with peak/mean gradients across the aortic valve
are 89/56 mmHg. Using an LVOT diameter of 2.0 cm., the KORI = .44 cm2. Trace
aortic regurgitation.
Tricuspid Valve
Tricuspid valve opens normally. Mild tricuspid regurgitation. Estimated
pulmonary artery pressure of 59 mmHg, assuming a right atrial pressure of 3
mmHg.
Pulmonic Valve
Pulmonic valve opens normally. Trace pulmonic regurgitation.
Pericardium\\Pleura
Trivial pericardial effusion. Pleural effusion present.
Aorta
Dilated aortic root at 3.8 cm and the ascending aorta is 4.0 cm.
Other Finding
The IVC is of normal size and demonstrates normal respiratory variation.
Interatrial septum is intact with no evidence of shunting by color flow
Doppler. No intracardiac mass or thrombus formation seen.
MEASUREMENTS (Male / Female) Normal Values
2D ECHO
LV Diastolic Diameter PLAX 5.7 cm 4.2 - 5.9 / 3.9 - 5.3 cm
LV Systolic Diameter PLAX 4.3 cm
IVS Diastolic Thickness 1.3 cm 0.6 - 1.0 / 0.6 - 0.9 cm
LVPW Diastolic Thickness 0.9 cm 0.6 - 1.0 / 0.6 - 0.9 cm
LV Relative Wall Thickness 0.4
LVOT Diameter 2.0 cm
LA Area 4C View 28.7 cm2 <= 20 cm2
LA Length 4C 5.9 cm
LA Volume 96.3 cm3 18 - 58 / 22 - 52 cm3
LA Volume Index 48.2 cm3/m2 16 - 34 cm3/m2
RV Diastolic Basal Diameter 4.3 cm 2.0 - 2.8 cm
RV Diastolic Mid Diameter 3.1 cm 2.7 - 3.3 cm
Ascending Aorta Diameter 4.0 cm
Aorta at Sinuses Diameter 3.8 cm
M-MODE
LA Systolic Diameter MM 4.9 cm
AV Cusp Separation MM 1.2 cm
DOPPLER
AV Peak Velocity 472.0 cm/s
AV Peak Gradient 89.1 mmHg
AV Mean Gradient 56.0 mmHg
AV Velocity Time Integral 95.2 cm
LVOT Peak Velocity 66.6 cm/s
LVOT Peak Gradient 1.8 mmHg
LVOT Velocity Time Integral 14.9 cm
LVOT Stroke Volume 46.8 cm3
LVOT Stroke Volume Index 21.3 ml/m2 empty
LVOT Cardiac Index 2002.9 cm3/min
AV Area Cont Eq vti 0.5 cm2
AV Area Cont Eq pk 0.4 cm2
MV Peak Velocity 148.0 cm/s
MV Peak Gradient 8.8 mmHg
MV Mean Velocity 94.6 cm/s
MV Mean Gradient 4.0 mmHg
MV Area PHT 4.9 cm2
MR Peak Velocity 648.0 cm/s
MR Peak Gradient 168.0 mmHg
Mitral E Point Velocity 126.0 cm/s
Mitral A Point Velocity 88.7 cm/s
Mitral E to A Ratio 1.4
LV E' Lateral Velocity 11.7 cm/s
Mitral E to LV E' Lateral Ratio 10.8
LV E' Septal Velocity 4.8 cm/s
Mitral E to LV E' Septal Ratio 26.3
TR Peak Velocity 374.0 cm/s
TR Peak Gradient 56.0 mmHg
08/10/2023 Cardiac Catheterization:
HEMODYNAMIC DATA
AO: 95/67
LV: Not done
PCWP: 31
PA: 65/38
RV: 65/22
RA: 21
Oximetry: Ao 97%, PA 54%, cardiac output 3.3, cardiac index 1.7
LEFT VENTRICULOGRAPHY: Not done
CORONARY ANGIOGRAPHY
Dominance: Right
Left Main: Normal
LAD: Normal
Circumflex: Normal
RCA: 99% ostial stenosis. There is sluggish flow into the proximal RCA
Of note, our plan was to perform this procedure from the right radial artery. Access was easily obtained and a 5 Scottish right radial artery sheath placed. Heparin 6000 units was administered. There was significant innominate tortuosity; however,
we were able to engage the left coronary and perform left coronary angiography in multiple projections. We were unable to access the right coronary artery despite using JR4 and AL-1 diagnostic catheters. A 5 Scottish DAVIN catheter could not be
advanced through the innominate artery due to spasm and at this point it was clear that we would be unable to access the ascending aorta from the right radial artery approach. A decision was made to access the right femoral artery to complete the
study with right coronary angiography. After easily accessing the right femoral artery using the micropuncture technique, a 5 Scottish sheath was placed. We were unable to pass a standard J-wire past the proximal external iliac artery. Similarly, a
hydrophilic small J-wire and an angled Glidewire were not not able to be passed into the common iliac. Although right femoral artery sheath pressure was identical to previously recorded aortic pressures, we opted for left femoral artery access as
there was some contrast hanging up on a puff through the RFA sheath consistent with retrograde dissection. A 5 Scottish LFA sheath was placed easily using a micropuncture technique and a 6 Scottish sheath placed in the left femoral vein. This allowed
us to perform right heart catheterization, selective right coronary artery angiography and abdominal aortography with bilateral iliofemoral runoff.
Lower extremity angiography: Aortography above the femoral bifurcation was performed at the conclusion of the procedure to assess the right iliofemoral vessels and to assess access for possible TAVR bilaterally. There is no evidence of
atherosclerotic disease in the right common femoral artery and no angiographic evidence of residual dissection in the common femoral artery. Both the right and left femoral artery arteriotomy sites are in the mid common femoral artery. Vessel
diameter estimates by angiography suggest that she will be a candidate for transfemoral TAVR
Closure Device: None-an R band was used for the right radial artery access site. Manual compression was used for the RFA, LFA, and LFV access sites.
Radiation (mGy): 631
DAP (cm2.Gy): 65.9
Fluoroscopy time: 20.5 minutes
CONCLUSIONS
1: Borderline systemic blood pressure
2: Markedly elevated left and right heart filling pressures with moderate to severe pulmonary hypertension
3. Low cardiac output state
4. Single-vessel CAD with subtotal occlusion of the ostial RCA
5. No significant atherosclerotic disease of the iliofemoral vessels bilaterally
6. No PCI attempt was contemplated as the patient requested that only a diagnostic study be performed
7. Known severe aortic stenosis (bicuspid valve with mean gradient 56 mmHg) not evaluated invasively
8. She will need continued diuresis and may benefit from a period of inotropic support
9. It is unclear whether she will agree to to have a heart and similarly unclear whether TAVR will improve her prognosis given the evidence of right heart dysfunction by echo and cath
Exam
General: No Apparent Distress, Comfortable and Other (obese)
HEENT: Normocephalic
Neck: Trachea Midline
Respiratory: Clear
Cardiac: S1/S2, Regular Rhythm (Tachycardic) and Murmur (Grade III/)
GI: Soft, Non Tender and Normal Bowel Sounds
Rectal: Deferred by Provider
Skin: Warm and Other (discoloration bilateral forefoot/toes, appears from chronic. Bilateral LE stephenie wraps in place)
Neuro: AO x 3
Extremities: Lower Level Edema (Right > left) and Other (right radial band intact)
Psych: Calm
Assessment / Plan
-
Severe Aortic stenosis:
���������������
Continue discussion with heart team if TAVR is appropriate treatment
Trend BMP following contrast administration
Will need CT TAVR chest only if proceeding with treatment. Angiogram of ingrid femoral arteries completed at time of cardiac cath
Will need dental clearance- if patient is discharged she does not feel she will be able to see a dentist. Will be unable to have regular dental care after.
Heart team discussion at SDM meeting this Wednesday
CAD
RCA: 99% ostial stenosis. There is sluggish flow into the proximal RCA
Review findings with Heart team at SDM meeting
Severe Ambulatory Dysfunction
Needs PT/OT evaluation
May need SNF placement upon discharge
���������������
������������
���������������
Data Reviewed
-
EKG: Report Reviewed by me
Tanning Solution Maker: Discussed with Physician
Echo: Discussed with Physician
Labs: Labs Reviewed by me
Old Records: Reviewed ([facility] records from Dr. Gomez and Palliative care RN. )
Total Time Spent with Patient (in minutes): 90
--- NOTE | 2023-08-10 15:46 | CM ---
Cardiac cath done today. Transferred to different unit.
[2023-08-10] MEDS: FLUSH (NSS) 2 FLUSH IV ×2 (16:12→20:09)
[2023-08-10] MEDS: LOVENOX 40 MG SC (16:12)
[2023-08-10] MEDS: VESICARE 10 MG PO (18:15)
--- NOTE | 2023-08-10 23:56 | PTCARENOTE ---
Has been sleeping, awakens easily to voice. Turned with max assistance of 2, patient needs alot of coaxing to help with turning. Bilateral groin sites wnl.
[2023-08-11] VITALS (7 sets, daily range): BP systolic 81–105; BP diastolic 60–72; BMI 44.9
[2023-08-11] MEDS: NEURONTIN 300 MG PO ×5 (00:18→23:08)
[2023-08-11] MEDS: ULTRAM 50 MG PO ×4 (00:18→23:08)
[2023-08-11 04:12] LABS: Hematocrit 31.8 % (37.0-47.0); Hemoglobin 9.6 g/dL (12.0-16.0); Mean Corp Hgb Conc. 30.2 g/dL (33.0-37.0); Mean Corpuscular Hgb 25.9 pg (27.0-31.0); Mean Corpuscular Volume 85.9 fL (81.0-99.0); Mean Platelet Volume 10.3 fL (7.4-10.4); Platelet Count 185 10^3/uL (130-400); Red Cell Dist. Width 19.9 % (11.5-14.5); White Blood Cell Count 8.4 10^3/uL (4.8-10.8)
[2023-08-11 04:38] LABS: Blood Urea Nitrogen 14 mg/dl (7-17); Calcium 8.1 mg/dl (8.4-10.2); Carbon Dioxide 35 mmol/L (22-30); Chloride 92 mmol/L (98-107); Estimated Creatinine Clearance 60 ml/min; Glucose 83 mg/dl (70-99); Potassium 3.2 mmol/L (3.5-5.1); Sodium 135 mmol/L (135-145); eGFR > 60.00
[2023-08-11] MEDS: KCL 270 MEQ IV (08:18)
--- NOTE | 2023-08-11 08:21 | W.PN.CD ---
Today's Communication / Plan
-
cotninue diuresis
valve meeting 08/13/23
start asa
start statin
check lipid profile
Impression / Plan
-
BACKGROUND: 72F who presented with weakness and shortness of breath.
HFrEF, acute on chronic
-Presented with SOB, vascular congestion on CXR, & proBNP 20K
-LVEF 60-65% in Sep, 2019, now EF 36%, RV mildly dilated and hypokinetic
-RHC with PCWP 31 RA 21 PA 65/38 CO 1.7 (wt 104.1 kg, but wts have been unreliable as using a bed scale).
-Good diuresis in the last 24 hours, but bp is soft, cr stable. Will continue and may need ionotrope but will hold off for now
-GDMT as tolerated---bp wont tolerate currently
-PITO/ARB: typically on Valsartan 160mg
-SGLT2: Case management to [facility]
-MRA: She presented with hyperkalemia
-Trend daily weight, I/Os, and BMP with diuresis
-Heart failure education
Aortic stenosis, bicuspid, severe
-Peak/mean gradients 89/56 mmHg
-LVOT 2.0cm, KORI 0.44 with trace appreciate structural team consult, case to be discussed 08/13/23 meeting.
-explained unfortunately she may not be a candidate for intervention, but will consider
-she understands palliation may be the only choice
CAD: no chest pain
-99% ostial RCA
-will need asa and statin
-check lipid profile
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
-treat CHF
IBS with chronic diarrhea
Ascending thoracic aortic dilatation
Moderate mitral regurgitation.
Moderate pulmonary HTN
Hypertension,
Ambulatory dysfunction requiring rolling walker
Morbid obesity, BMI > 45
Long history of lymphedema
Severe lymphedema and shronic lower extremity wounds---wound care consulted
Severe orthopedic disease
Outpatient palliative care, last seen 07/[address] Moreno
History of MRSA colonization
Son: Phoenix Callahan(cardiology) at his phone number [phone].
Subjective: She is feeling better no further chest discomfort, breathing at rest improved.
Data:
R/LHC 08/11/23: HEMODYNAMIC DATA
AO: 95/67
LV: Not done
PCWP: 31
PA: 65/38
RV: 65/22
RA: 21
Oximetry: Ao 97%, PA 54%, cardiac output 3.3, cardiac index 1.7
CORONARY ANGIOGRAPHY
Dominance: Right
Left Main: Normal
LAD: Normal
Circumflex: Normal
RCA: 99% ostial stenosis. There is sluggish flow into the proximal RCA
Of note, our plan was to perform this procedure from the right radial artery. Access was easily obtained and a 5 [place] right radial artery sheath placed. Heparin 6000 units was administered. There was significant innominate tortuosity; however,
we were able to engage the left coronary and perform left coronary angiography in multiple projections. We were unable to access the right coronary artery despite using JR4 and AL-1 diagnostic catheters. A 5 [place] DAVIN catheter could not be
advanced through the innominate artery due to spasm and at this point it was clear that we would be unable to access the ascending aorta from the right radial artery approach. A decision was made to access the right femoral artery to complete the
study with right coronary angiography. After easily accessing the right femoral artery using the micropuncture technique, a 5 [place] sheath was placed. We were unable to pass a standard J-wire past the proximal external iliac artery. Similarly, a
hydrophilic small J-wire and an angled Glidewire were not not able to be passed into the common iliac. Although right femoral artery sheath pressure was identical to previously recorded aortic pressures, we opted for left femoral artery access as
there was some contrast hanging up on a puff through the RFA sheath consistent with retrograde dissection. A 5 [place] LFA sheath was placed easily using a micropuncture technique and a 6 [place] sheath placed in the left femoral vein. This allowed
us to perform right heart catheterization, selective right coronary artery angiography and abdominal aortography with bilateral iliofemoral runoff.
Lower extremity angiography: Aortography above the femoral bifurcation was performed at the conclusion of the procedure to assess the right iliofemoral vessels and to assess access for possible TAVR bilaterally. There is no evidence of
atherosclerotic disease in the right common femoral artery and no angiographic evidence of residual dissection in the common femoral artery. Both the right and left femoral artery arteriotomy sites are in the mid common femoral artery. Vessel
diameter estimates by angiography suggest that she will be a candidate for transfemoral TAVR
CONCLUSIONS
1: Borderline systemic blood pressure
2: Markedly elevated left and right heart filling pressures with moderate to severe pulmonary hypertension
3. Low cardiac output state
4. Single-vessel CAD with subtotal occlusion of the ostial RCA
5. No significant atherosclerotic disease of the iliofemoral vessels bilaterally
6. No PCI attempt was contemplated as the patient requested that only a diagnostic study be performed
7. Known severe aortic stenosis (bicuspid valve with mean gradient 56 mmHg) not evaluated invasively
8. She will need continued diuresis and may benefit from a period of inotropic support
9. It is unclear whether she will agree to to have a heart and similarly unclear whether TAVR will improve her prognosis given the evidence of right heart dysfunction by echo and cath
TTE: 08/09/23:
CONCLUSIONS
Moderately reduced left ventricular systolic function. Global hypokinesis.
Left ventricular ejection fraction is 36% by volumetric assessment.
Enlarged right ventricular size with reduced systolic function.
Stage II diastolic dysfunction suggestive of abnormal relaxation and increased
filling pressures
Moderate mitral regurgitation.
Calcified bicuspid aortic valve. Trace aortic regurgitation.
Severe aortic stenosis with peak/mean gradients across the aortic valve are
89/56 mmHg.
Moderate pulmonary hypertension.
Compared to previous echo 11/12/2020, the ejection fraction has decreased from
60-65% to 36%. The right ventricle is dilated and hypokinetic. Moderate
pulmonary hypertension is new.
Physical Exam
Vital Signs/Labs
Vital Signs
Temp Pulse Resp BP Pulse Ox
98.6 F 97 18 89/71 97
08/11/23 02:58 08/11/23 04:00 08/11/23 02:58 08/11/23 03:17 08/11/23 02:58
08/10/23 08/11/23 08/12/23
06:59 06:59 06:59
Actual Weight 104.19 kg
08/11/23 03:21
08/11/23 03:21
Magnesium 1.6 mg/dl (1.6-2.3) 08/09/23 04:29
Triglycerides 83 mg/dl (10-149) 08/07/23 02:49
LDL Cholesterol, Calc 53 mg/dl 08/07/23 02:49
VLDL Cholesterol, Calc 16 mg/dl (0-30) 08/07/23 02:49
HDL Cholesterol 35 mg/dl 08/07/23 02:49
08/06/23
22:44
Out-U-Nhirvbmwjis Pept
LAB Results
08/09/23 08/09/23
12:31 13:17
Troponin I Cancelled 0.083 H*
Physical Exam
Constitutional: No acute distress
Cardiovascular: Rhythm & rate is regular, Pedal edema present (legs wrapped with pito's b/l with pitting and non pitting edema), Systolic murmur present (2/6 crescendo decrescendo murmur) and S1S2 is normal
Respiratory: Respiratory effort normal and Crackles Present (bilaterally at the bases)
Neuro/Psych: AO x 3
Other: Cath Site (b/l fem artery with normal pulse no ecchymosis, left fem vein no hematoma)
Data Reviewed
-
Date of Service: August 11, 2023
EKG: Other (tele sinus with pvcs)
[2023-08-11] MEDS: ASPIR LOW (ENTERIC COATED) 81 MG PO (09:44)
[2023-08-11] MEDS: PROTONIX 40 MG PO ×2 (09:44→20:17)
[2023-08-11] MEDS: NSS (PRESERVATIVE FREE) 8 ML IV ×2 (09:44→20:14)
[2023-08-11] MEDS: DIOVAN PO (09:45)
[2023-08-11] MEDS: PEPCID 20 MG IV ×2 (09:45→20:15)
[2023-08-11] MEDS: LASIX 40 MG IV ×2 (09:45→16:01)
[2023-08-11] MEDS: DESENEX/MITRAZOL/ZEASORB 1 APPLIC TOPICAL ×2 (09:46→20:14)
[2023-08-11 11:05] LABS: HDL Cholesterol 20 mg/dl; LDL Cholesterol, Calculated 45 mg/dl; Total Cholesterol 78 mg/dl (50-199); Triglyceride 68 mg/dl (10-149); Very Low Density Lipoprotein 13 mg/dl (0-30)
--- NOTE | 2023-08-11 11:28 | W.PN.UPDATE ---
Update Note
Progress Note Update
reviewed chart spoke with nursing. at this point patient cooperating with treatment. dr parker did not find patient to be suicidal. nursing feels she is coping reasonably well. psych signing off please call us if you need us to return.
--- NOTE | 2023-08-11 11:58 | W.PN.HOSP.TC ---
Today's Communication/Plan
-
At this point we will have to continue to hold valsartan due to soft BP
To have valve meeting regarding qualifications for TAVR on August 12
Found to have critical ostial RCA lesion but refused PCI started on aspirin and statin
She is under the understanding that there may not be other options other than palliation if not a candidate for valve replacement which she is excepted
Assessment / Plan
Assessment / Plan
Physical Exam
General: No Apparent Distress and Morbidly Obese
HEENT: Normocephalic, Anicteric and Moist mucous membranes
Respiratory: CTAB
Cardiac: S1/S2, Regular Rhythm, Tachycardia and Murmur (Loud ejection systolic mm at LUSB )
GI: Soft, Non Tender, Non Distended and Normal Bowel Sounds
Musculoskeletal: Edema, Left Lower Extremity (massive ), Edema, Right Lower Extremity (massive ) and Other (both legs are wrapped )
Neuro: AO x 3
Psych: Calm
Assessment/Plan
Progressive Dyspnea
Presentation with Increasing Generalized Weakness and Leg Swelling
Acute on Chronic HFpEF -- likely related to patient's severe aortic stenosis
Non compliance with Lasix (for the past 2 to 3 weeks prior to presentation) due to the fact that it's hard for her to get and go to the bathroom
Lives independently at home but spends most of her time on recliner
- CXR as per radiologist's report showed 'Mild pulmonary vascular congestion. Left midlung atelectasis. Cardiomegaly.'
- proBNP was on presentation
- Continue PO Lasix 40 mg BID (patient takes 40 mg daily at home)
- Daily Is and Os
- Daily BMP
- Cardiology consulted
will undergo evaluation for TAVR with case discussions to be undertaken on 12 August
-It has been explained that palliation may be the only choice at this point
Volume overload ; chronic with acute element due to non compliance with Lasix
Chronic Lymphedema of both legs
- PO fluid restriction
- Hold amlodipine for now.
- Continue diuresis as above
Hyperkalemia
- Continue to hold Valsartan
- f/u K in response to diuresis
-Cannot be resumed
Elevated TPNI - Non-[place] Troponin Elevation due to acute HF
No CP
- Trending troponins -- although elevated, they show an unremarkable trend
Severe Aortic Stenosis
History of bicuspid aortic valve
Patient denies lightheadedness / dizziness.
-Repeat 2D echocardiogram reviewed and compared to 2019 noting diminished EF now down to 35% from 65%/severe aortic stenosis/increased pulmonary hypertension and RV dilatation
-LVOT 2.0 cm/KORI of 0.44/
-Left heart cath yesterday noted 99% ostial RCA lesion patient refused PCI/
-GDMT/not ideal to pursue aggressively given BP constraints/valsartan was resumed but now on hold due to BP
-Cardiology has explained to the patient and family and will undergo evaluation for TAVR with case discussions to be undertaken on 12 August
-It has been explained that palliation may be the only choice at this point
Essential Hypertension
- Held amlodipine as noted above as this can worsen edema.
- Held valsartan due to hyperkalemia
- Observe BP
Chronic ambulatory dysfunction: multifactorial origins
mostly in recliner but walk short distance to BR
Multifactorial gait dysfunction
History of fall with persistent neck pain
History of Rhabdomyolysis
DJD, Morbid obesity
- s/p bilateral TKA.
- Has chronic L hip pain
- Pain control
-Patient remains very sedentary and even resistant to changes in bed position at times.
History of GERD
History of Irritable Bowel Syndrome
History of Crohn's Disease?
Morbid Obesity due to calorie excess
- Ability to exercise is significantly impaired by gait dysfunction, DJD, etc.
Long history of wounds
- Continue wound care
History of MRSA colonization
History of Urinary Tract Infection
Depression and anxiety
-By history and discussion of the family not been treated
-She herself has been resistant to therapy
-May have related to family members that she wanted to
-She was seen and evaluated by psychiatry here no evidence of any active depression or suicidal ideation/seemingly appropriate for decision-making also
-She continues to be steadfast in refusing intervention for her severe aortic stenosis
-She remains having a lot of frustrations in relation to her family issues especially with her brother and son want her to pursue intervention for her valve which she is resistant to since 'it is not bothering me'
DVT Prophylaxis: Lovenox
Code Status: Full
Anticipated Discharge: 24 - 48 hours
Subjective/Interval History
-
Date of Service: August 11, 2023
He remains comfortable at rest when lying down denies any dizziness although BP is soft this morning
Objective Data
-
Labs:
Laboratory Results
08/11/23
03:21
WBC 8.4
Hgb 9.6 L
Hct 31.8 L
Plt Count 185
Sodium 135
Potassium 3.2 L
Chloride 92 L
Carbon Dioxide 35 H
BUN 14
Creatinine 0.9
Glucose 83
Calcium 8.1 L
Vital Signs:
Vital Signs
Temp Pulse Resp BP Pulse Ox
99.3 F 97 18 89/71 95
08/11/23 08:33 08/11/23 04:00 08/11/23 08:33 08/11/23 03:17 08/11/23 08:34
I&O
08/10/23 08/11/23 08/12/23
06:59 06:59 06:59
Intake Total 1560 / 1560 1670 / 1670 300 / 300
Output Total 3150 / 3150 5050 / 5050 400 / 400
Balance -1590 / -1590 -3380 / -3380 -100 / -100
Physical Exam
-
General: Obese
HEENT: Normocephalic
Respiratory: Clear to Auscultation
Cardiac: Regular Rhythm and Murmur
Musculoskeletal: Edema, Right Lower Extrem and Edema, Left Lower Extrem
Neuro: Awake, Alert and Oriented
Psych: Calm
Data Reviewed
-
Total Time Spent with Patient (in minutes): 56
Medical Tests (Nuc Med, Echo etc): Report Reviewed by me (Prior echo 65% EF in 2020 now 36% with RV mildly dilated pulmonary hypertension worsened/had 99% ostial RCA lesion did not want to pursue PCI yesterday)
Labs: Labs Reviewed by me (Potassium 3.2 today)
[2023-08-11] MEDS: LIPITOR PO (12:21)
--- NOTE | 2023-08-11 12:44 | CM ---
Reviewed chart. Mrs. javier transferred to IVU. Met with Mrs. Javier to review discharge plans. She states she feels about the same. She states prior to admission she resides in a two story home with two steps to enter. She states she has a a first
floor set-up. She states she has private caregivers several hours during the day and for a few hours in the evening. We reviewed medical team recommendations for SNF/Rehab. She states she has her name in at the [facility]. She is on
the waiting list. Received telephone call from [facility] who states they do not have an available bed in their SNF/Rehab. She gave the option of exploring their sister facility [facility]. Reviewed SNF/Rehab.
at [facility] and [facility]. She was agreeable to having a referral sent to [facility]. Will need to see her current functional level to see if she will have any skilled care needs. Will need new physical and occupational
orders for evaluation. Medical work-up in progress. The discharge plan is to go to SNF/Rehab. when bed available and Mrs. Javier agreeable when medically stable.
--- NOTE | 2023-08-11 12:50 | PTOTSP ---
Patient transferred from [address] [place] [address] to IVU, is s/p cardiac cath. Will need new orders to resume PT and OT services due to the transfer. Please reconsult when medically appropriate. Thank you. PT, [id number]
--- NOTE | 2023-08-11 13:24 | PTOTSP ---
Patient transferred from [address] [place] [address] to IVU and is now s/p cardiac cath. New orders required. Please place new orders as needed/appropriate.
[2023-08-11] MEDS: LIPITOR 40 MG PO (18:11)
[2023-08-11] MEDS: LOVENOX 40 MG SC (18:11)
[2023-08-11] MEDS: VESICARE 10 MG PO (18:16)
[2023-08-11] MEDS: ULTRAM PO (18:17)
--- NOTE | 2023-08-11 19:31 | PTCARENOTE ---
Pt resting in bed today, she has great difficulty moving any part of her body and is very deconditioned and stiff. Pt states she has not been out of bed for 5 days. All nursing care given, diuresing well via purewick device. Pt states her lower legs
'are really improved'. Telemetry shows sinus tach with first degree AV block. Pt seen by many providers regarding her options.
[2023-08-12] VITALS (9 sets, daily range): BP systolic 87–106; BP diastolic 63–75; BMI 41.7
[2023-08-12 04:46] LABS: Blood Urea Nitrogen 18 mg/dl (7-17); Calcium 8.3 mg/dl (8.4-10.2); Carbon Dioxide 35 mmol/L (22-30); Chloride 91 mmol/L (98-107); Estimated Creatinine Clearance 74 ml/min; Glucose 92 mg/dl (70-99); Potassium 3.6 mmol/L (3.5-5.1); Sodium 132 mmol/L (135-145); eGFR > 60.00
[2023-08-12] MEDS: NEURONTIN 300 MG PO ×2 (05:57→21:54)
[2023-08-12] MEDS: ULTRAM 50 MG PO (05:58)
[2023-08-12] MEDS: KCL 20 MEQ PO ×2 (09:09→21:05)
[2023-08-12] MEDS: NSS (PRESERVATIVE FREE) 8 ML IV ×2 (09:10→21:04)
[2023-08-12] MEDS: PROTONIX 40 MG PO ×2 (09:10→21:05)
[2023-08-12] MEDS: LASIX 40 MG IV ×2 (09:10→15:56)
[2023-08-12] MEDS: PEPCID 20 MG IV ×2 (09:10→21:04)
[2023-08-12] MEDS: ASPIR LOW (ENTERIC COATED) 81 MG PO (09:10)
[2023-08-12] MEDS: DESENEX/MITRAZOL/ZEASORB 1 APPLIC TOPICAL ×2 (09:11→21:04)
--- NOTE | 2023-08-12 11:06 | W.PN.HOSP.TC ---
Addendum entered and electronically signed by Santhosh Bob MD 08/12/23 14:22:
Hypotensive
Original Note:
Today's Communication/Plan
-
Long discussion on goals of care and the fact that the patient has had a living will in place stating DNR status for years and she is frustrated over the fact that that was not instituted on her arrival here I assured her after our discussion and
going over all the the tenants of a DO NOT RESUSCITATE order she wants that placed in her chart we also discussed the fact that this would not preclude the scheduled meeting with cardiothoracic surgery over the options available to her in regards to
her aortic valve scheduled for tomorrow. She also understands that should she enter into a surgical intervention given said procedure all resuscitative measures would be undertaken but once out of surgical suite she would want DNR status to be
reinstituted and she is fearful of that not being in place I assured her her wishes would be pursued and the order will be changed forthright.
She remains tachycardic and hypertensive and her valsartan will continue to be held
Renal status remains stable in the face of continued IV diuresis
Assessment / Plan
Assessment / Plan
Physical Exam
General: No Apparent Distress and Morbidly Obese
HEENT: Normocephalic, Anicteric and Moist mucous membranes
Respiratory: CTAB
Cardiac: S1/S2, Regular Rhythm, Tachycardia and Murmur (Loud ejection systolic mm at LUSB )
GI: Soft, Non Tender, Non Distended and Normal Bowel Sounds
Musculoskeletal: Edema, Left Lower Extremity (massive ), Edema, Right Lower Extremity (massive ) and Other (both legs are wrapped )
Neuro: AO x 3
Psych: Calm
Assessment/Plan
Progressive Dyspnea
Presentation with Increasing Generalized Weakness and Leg Swelling
Acute on Chronic HFpEF -- likely related to patient's severe aortic stenosis
Non compliance with Lasix (for the past 2 to 3 weeks prior to presentation) due to the fact that it's hard for her to get and go to the bathroom
Lives independently at home but spends most of her time on recliner
- CXR as per radiologist's report showed 'Mild pulmonary vascular congestion. Left midlung atelectasis. Cardiomegaly.'
- proBNP was on presentation
- Continue PO Lasix 40 mg BID (patient takes 40 mg daily at home)
- Daily Is and Os
- Daily BMP
- Cardiology consulted
will undergo evaluation for TAVR with case discussions to be undertaken on 12 August
-It has been explained that palliation may be the only choice at this point
Volume overload ; chronic with acute element due to non compliance with Lasix
Chronic Lymphedema of both legs
- PO fluid restriction
- Hold amlodipine for now.
- Continue diuresis as above
Hyperkalemia
- Continue to hold Valsartan
- f/u K in response to diuresis
-Cannot be resumed
Elevated TPNI - Non-[place] Troponin Elevation due to acute HF
No CP
- Trending troponins -- although elevated, they show an unremarkable trend
Severe Aortic Stenosis
History of bicuspid aortic valve
Patient denies lightheadedness / dizziness.
-Repeat 2D echocardiogram reviewed and compared to 2019 noting diminished EF now down to 35% from 65%/severe aortic stenosis/increased pulmonary hypertension and RV dilatation
-LVOT 2.0 cm/KORI of 0.44/
-Left heart cath yesterday noted 99% ostial RCA lesion patient refused PCI/
-GDMT/not ideal to pursue aggressively given BP constraints/valsartan was resumed but now on hold due to BP
-Cardiology has explained to the patient and family and will undergo evaluation for TAVR with case discussions to be undertaken on 12 August
-It has been explained that palliation may be the only choice at this point
Essential Hypertension
- Held amlodipine as noted above as this can worsen edema.
- Held valsartan due to hyperkalemia
- Observe BP
Chronic ambulatory dysfunction: multifactorial origins
mostly in recliner but walk short distance to BR
Multifactorial gait dysfunction
History of fall with persistent neck pain
History of Rhabdomyolysis
DJD, Morbid obesity
- s/p bilateral TKA.
- Has chronic L hip pain
- Pain control
-Patient remains very sedentary and even resistant to changes in bed position at times.
History of GERD
History of Irritable Bowel Syndrome
History of Crohn's Disease?
Morbid Obesity due to calorie excess
- Ability to exercise is significantly impaired by gait dysfunction, DJD, etc.
Long history of wounds
- Continue wound care
History of MRSA colonization
History of Urinary Tract Infection
Depression and anxiety
-By history and discussion of the family not been treated
-She herself has been resistant to therapy
-May have related to family members that she wanted to
-She was seen and evaluated by psychiatry here no evidence of any active depression or suicidal ideation/seemingly appropriate for decision-making also
-She continues to be steadfast in refusing intervention for her severe aortic stenosis
-She remains having a lot of frustrations in relation to her family issues especially with her brother and son want her to pursue intervention for her valve which she is resistant to since 'it is not bothering me'
August 11/2024/ AM
Long discussion on goals of care and the fact that the patient has had a living will in place stating DNR status for years and she is frustrated over the fact that that was not instituted on her arrival here I assured her after our discussion and
going over all the the tenants of a DO NOT RESUSCITATE order she wants that placed in her chart we also discussed the fact that this would not preclude the scheduled meeting with cardiothoracic surgery over the options available to her in regards to
her aortic valve scheduled for tomorrow. She also understands that should she enter into a surgical intervention given said procedure all resuscitative measures would be undertaken but once out of surgical suite she would want DNR status to be
reinstituted and she is fearful of that not being in place I assured her her wishes would be pursued and the order will be changed forthright.
DVT Prophylaxis: Lovenox
Code Status: Full
Anticipated Discharge: 24 - 48 hours
Subjective/Interval History
-
Date of Service: August 12, 2023
We had a long discussion on goals of care and she is frustrated over the fact that a DO NOT RESUSCITATE order was not initiated at time of presentation as she has a living well that this states that for years.
Objective Data
-
Labs:
Laboratory Results
08/12/23
03:56
Sodium 132 L
Potassium 3.6
Chloride 91 L
Carbon Dioxide 35 H
BUN 18 H
Creatinine 0.7
Glucose 92
Calcium 8.3 L
Vital Signs:
Vital Signs
Temp Pulse Resp BP Pulse Ox
98.1 F 105 20 95/63 99
08/12/23 07:00 08/12/23 09:00 08/12/23 07:00 08/12/23 07:02 08/12/23 09:25
I&O
08/11/23 08/12/23 08/13/23
06:59 06:59 06:59
Intake Total 1670 / 1670 870 / 870
Output Total 5050 / 5050 2250 / 2250
Balance -3380 / -3380 -1380 / -1380
[2023-08-12] MEDS: ULTRAM PO ×2 (13:50→18:22)
[2023-08-12] MEDS: NEURONTIN PO ×2 (13:50→18:22)
[2023-08-12] MEDS: LOVENOX 40 MG SC (18:21)
[2023-08-12] MEDS: LIPITOR 40 MG PO (18:21)
[2023-08-12] MEDS: VESICARE 10 MG PO (18:21)
--- NOTE | 2023-08-12 19:37 | PTCARENOTE ---
Pt very sleepy all day, neurontin and ultram held at noon and 18:00. Pt refused to be turned but she states understanding of the high risk for pressure sores. Pt denies any discomfort while lying still. Telemetry shows sinus rhythm with occasional
PVC's.
--- NOTE | 2023-08-12 22:15 | PTCARENOTE ---
Assumed care, patient sleepy arouses to name. VSS. Grossly incontinent of urine, complete bed bath provided, new purwick placed. Offered pain medication, patient refused, only has pain when her legs are moved or when she moves in bed. Neurontin
given, Ultram held. Abdominal Panus MASD and open sores on bilateral sides of her abdomen. Powder applied per MAR, using call finch for assistance
[2023-08-13] VITALS (11 sets, daily range): BP systolic 87–108; BP diastolic 63–82; PULSE 108–112; O2SAT 95; BMI 41.6
[2023-08-13] MEDS: ULTRAM PO (00:29)
[2023-08-13] MEDS: ULTRAM 50 MG PO (04:23)
[2023-08-13] MEDS: NEURONTIN 300 MG PO ×3 (04:23→18:38)
--- NOTE | 2023-08-13 05:01 | PTCARENOTE ---
Patient more alert and awake. Having pain in her legs when providing hygiene care. Pain medication and Neurontin given. Purwick replaced, incontinent of urine.
[2023-08-13 05:21] LABS: Blood Urea Nitrogen 18 mg/dl (7-17); Calcium 8.1 mg/dl (8.4-10.2); Carbon Dioxide 36 mmol/L (22-30); Chloride 94 mmol/L (98-107); Estimated Creatinine Clearance 57 ml/min; Glucose 92 mg/dl (70-99); Magnesium 1.6 mg/dl (1.6-2.3); Potassium 3.6 mmol/L (3.5-5.1); Sodium 133 mmol/L (135-145); eGFR > 60.00
--- NOTE | 2023-08-13 07:33 | W.PN.HOSP.TC ---
Addendum entered and electronically signed by Santhosh Bob MD 08/13/23 18:10:
Been appraised of the cardiovascular meeting regarding prospects of TAVR and she did not meet criteria based on risk-benefit and poor performance status cardiology is broached the possibility of palliation and hospice care however the patient was
resistant until she was able to speak to her son. On speaking to her son again today it is noteworthy there a lot of issues with communication from the patient and returning some messaging and ignoring others and now patient's son Dr. Callahan will be
coming in tomorrow From [place] and planning later in the day to address all of these issues hopefully with the patient to come to some kind consensus on care issues going forward. In review of the physical therapy and Occupational Therapy
assessments the patient is basically total care at this point and will at the very least require a subacute nursing facility for rehab best case scenario for all concerned with the palliation setting or hospice however patient has to be agreeable as
the patient has capacity based on psychiatry input. I also spoke to Dr. Callahan in regards to possibly placing the patient on an SSRI in the form of Lexapro I am also concerned over the somnolence that she has been developing with the usage of
combination of gabapentin and tramadol for her chronic pain. We left it that once the patient is able to speak to him she will raise the issue of possible treatment with an antidepressant and hopefully she will be agreeable.
Original Note:
Today's Communication/Plan
-
Will await valve team recommendations
Continues on IV diuresis with weight loss
Previously somnolent yesterday I think we should reduce the tramadol dosing and make it as needed instead of scheduled
Also consideration for reduction in gabapentin especially nighttime dose she is somnolent this morning
Continue to monitor BMP and renal status
If no surgical interventions recommended we will need to address palliative care
Assessment / Plan
Assessment / Plan
Physical Exam
General: No Apparent Distress and Morbidly Obese/somnolent this morning although able to arouse from sleep
HEENT: Normocephalic, Anicteric and Moist mucous membranes
Respiratory: CTAB
Cardiac: S1/S2, Regular Rhythm, Tachycardia and Murmur (Loud ejection systolic mm at LUSB )
GI: Soft, Non Tender, Non Distended and Normal Bowel Sounds
Musculoskeletal: Edema, Left Lower Extremity (massive ), Edema, Right Lower Extremity (massive ) and Other (both legs are wrapped )
Neuro: AO x 3
Psych: Calm
Assessment/Plan
Progressive Dyspnea
Presentation with Increasing Generalized Weakness and Leg Swelling
Acute on Chronic HFpEF -- likely related to patient's severe aortic stenosis
Non compliance with Lasix (for the past 2 to 3 weeks prior to presentation) due to the fact that it's hard for her to get and go to the bathroom
Lives independently at home but spends most of her time on recliner
- CXR as per radiologist's report showed 'Mild pulmonary vascular congestion. Left midlung atelectasis. Cardiomegaly.'
- proBNP was on presentation
- Continue PO Lasix 40 mg BID (patient takes 40 mg daily at home)
- Daily Is and Os
- Daily BMP
- Cardiology consulted
will undergo evaluation for TAVR with case discussions to be undertaken on 12 August
-It has been explained that palliation may be the only choice at this point
Volume overload ; chronic with acute element due to non compliance with Lasix
Chronic Lymphedema of both legs
- PO fluid restriction
- Hold amlodipine for now.
-Has lost a total of almost 13 kg of weight since arrival
- Continue diuresis as above
Hyperkalemia
- Continue to hold Valsartan
- f/u K in response to diuresis
-Cannot be resumed
Elevated TPNI - Non-NH Troponin Elevation due to acute HF
No CP
- Trending troponins -- although elevated, they show an unremarkable trend
Severe Aortic Stenosis
History of bicuspid aortic valve
Patient denies lightheadedness / dizziness.
-Repeat 2D echocardiogram reviewed and compared to 2019 noting diminished EF now down to 35% from 65%/severe aortic stenosis/increased pulmonary hypertension and RV dilatation
-LVOT 2.0 cm/KORI of 0.44/
-Left heart cath yesterday noted 99% ostial RCA lesion patient refused PCI/
-GDMT/not ideal to pursue aggressively given BP constraints/valsartan was resumed but now on hold due to BP
-Cardiology has explained to the patient and family and will undergo evaluation for TAVR with case discussions to be undertaken on 12 August
-It has been explained that palliation may be the only choice at this point
Essential Hypertension
- Held amlodipine as noted above as this can worsen edema.
- Held valsartan due to hyperkalemia
- Observe BP
Chronic ambulatory dysfunction: multifactorial origins
mostly in recliner but walk short distance to BR
Multifactorial gait dysfunction
History of fall with persistent neck pain
History of Rhabdomyolysis
DJD, Morbid obesity
- s/p bilateral TKA.
- Has chronic L hip pain
- Pain control
-Patient remains very sedentary and even resistant to changes in bed position at times.
History of GERD
History of Irritable Bowel Syndrome
History of Crohn's Disease?
Morbid Obesity due to calorie excess
- Ability to exercise is significantly impaired by gait dysfunction, DJD, etc.
Long history of wounds
- Continue wound care
History of MRSA colonization
History of Urinary Tract Infection
Depression and anxiety
-By history and discussion of the family not been treated
-She herself has been resistant to therapy
-May have related to family members that she wanted to
-She was seen and evaluated by psychiatry here no evidence of any active depression or suicidal ideation/seemingly appropriate for decision-making also
-She continues to be steadfast in refusing intervention for her severe aortic stenosis
-She remains having a lot of frustrations in relation to her family issues especially with her brother and son want her to pursue intervention for her valve which she is resistant to since 'it is not bothering me'
August 11/2024/ AM
Long discussion on goals of care and the fact that the patient has had a living will in place stating DNR status for years and she is frustrated over the fact that that was not instituted on her arrival here I assured her after our discussion and
going over all the the tenants of a DO NOT RESUSCITATE order she wants that placed in her chart we also discussed the fact that this would not preclude the scheduled meeting with cardiothoracic surgery over the options available to her in regards to
her aortic valve scheduled for tomorrow. She also understands that should she enter into a surgical intervention given said procedure all resuscitative measures would be undertaken but once out of surgical suite she would want DNR status to be
reinstituted and she is fearful of that not being in place I assured her her wishes would be pursued and the order will be changed forthright.
DVT Prophylaxis: Lovenox
Code Status: Full
Anticipated Discharge: Within 24 hours
Subjective/Interval History
-
Date of Service: August 13, 2023
Difficult to arouse this morning had restless night was complaining of pain but was also having periods of lethargy and nursing felt that should withhold her dosage of tramadol which she was frustrated with and actually angry over. She continues to
refuse attempts at turning her in bed and attempts at increase activity please refer to my long discussion with her yesterday in the p.m. regarding goals of care that were instituted awaiting valve team to make decision on intervention if any for
her aortic valve disease.
Objective Data
-
Labs:
Laboratory Results
08/13/23
04:11
Sodium 133 L
Potassium 3.6
Chloride 94 L
Carbon Dioxide 36 H
BUN 18 H
Creatinine 0.9
Glucose 92
Calcium 8.1 L
Vital Signs:
Vital Signs
Temp Pulse Resp BP Pulse Ox
97.5 F 106 12 90/76 99
08/13/23 06:53 08/13/23 06:53 08/13/23 06:53 08/13/23 04:07 08/13/23 06:53
I&O
08/12/23 08/13/23 08/14/23
06:59 06:59 06:59
Intake Total 870 / 870 120 / 120
Output Total 2250 / 2250 700 / 700
Balance -1380 / -1380 -580 / -580
Review of Systems
-
History Source: Patient and Other (Somnolent this morning had difficulty arousing her)
All other systems: Reviewed and negative
Constitutional: Reports No Symptoms
EENT: Reports No Symptoms Reported
Musculoskeletal: Reports Joint Swelling, Muscle Stiffness, Myalgias and Muscle Weakness
Psych: Reports Depressed
Physical Exam
-
General: Well Developed
HEENT: Normocephalic
Respiratory: Clear to Auscultation
Cardiac: Irregular Rhythm and Murmur
Musculoskeletal: Edema, Right Lower Extrem and Edema, Left Lower Extrem
Skin: IV Access / Catheter Site
Psych: Calm and Other (Seems to be oversedated presently)
Data Reviewed
-
Total Time Spent with Patient (in minutes): 45
Labs: Labs Reviewed by me (Potassium stable BUN and creatinine stable/sodium stable/loss of 13 kg since presentation)
[2023-08-13] MEDS: ASPIR LOW (ENTERIC COATED) 81 MG PO (09:04)
[2023-08-13] MEDS: PROTONIX 40 MG PO ×2 (09:05→19:58)
[2023-08-13] MEDS: DESENEX/MITRAZOL/ZEASORB 1 APPLIC TOPICAL ×2 (09:05→19:56)
[2023-08-13] MEDS: PEPCID 20 MG IV ×2 (09:05→19:58)
[2023-08-13] MEDS: NSS (PRESERVATIVE FREE) 8 ML IV ×2 (09:06→19:56)
[2023-08-13] MEDS: KCL 20 MEQ PO ×2 (09:08→19:58)
[2023-08-13] MEDS: LASIX IV (09:17)
--- NOTE | 2023-08-13 09:54 | W.PN.CD ---
Today's Communication / Plan
-
hold diuresis today
consider hospice evaluation
discharge planning
Impression / Plan
-
BACKGROUND: 72F who presented with weakness and shortness of breath.
HFrEF, acute on chronic
-Presented with SOB, vascular congestion on CXR, & proBNP 20K
-LVEF 60-65% in Sep, 2019, now EF 36%, RV mildly dilated and hypokinetic
-RHC with PCWP 31 RA 21 PA 65/38 CO 1.7 (wt 104.1 kg, but wts have been unreliable as using a bed scale).
-Diuresis has been impressive. Wt has dropped from 240 to 213 (27 lbs)
- BP now low, will hold further diuresis at this point Cr stable
-GDMT as tolerated---bp wont tolerate currently
-PITO/ARB: typically on Valsartan 160mg
-SGLT2: Case management to [facility]
-MRA: She presented with hyperkalemia
-Trend daily weight, I/Os, and BMP with diuresis
-Heart failure education
Aortic stenosis, bicuspid, severe
-Peak/mean gradients 89/56 mmHg
-LVOT 2.0cm, KORI 0.44 with trace appreciate structural team consult, case to be discussed 08/13/23 meeting.
-discussed at Valve Multidisciplinary meeting 08/13/23. She is not a candidate for high risk intervention given co morbidities, essentially bedbound status, it was felt the risk was >>>> than any potential benefit.
-we discussed palliation and hospice referral, she will discuss with her son
-I did offer to make her cath data available to any center if she wishes to pursue a second opinion.
CAD: no chest pain
-99% ostial RCA
-Peak trop this admission was 0.090.
-We may offer attempt at ostial RCA PCI at time of TAVR
-continue asa/statin
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
-treat CHF
Severe lymphedema and shronic lower extremity wounds---wound care consulted
-great improvement with wraps
IBS with chronic diarrhea
Ascending thoracic aortic dilatation
Moderate mitral regurgitation.
Moderate pulmonary HTN
Hypertension,
Ambulatory dysfunction requiring rolling walker
Morbid obesity, BMI > 45
Long history of lymphedema
Severe orthopedic disease
Outpatient palliative care, last seen 07/[address] Moreno
History of MRSA colonization
Son: Phoenix Pereze(cardiology) at his phone number [phone].
Subjective: She is feeling better no further chest discomfort, breathing at rest improved.
Data:
R/C 08/11/23: HEMODYNAMIC DATA
AO: 95/67
LV: Not done
PCWP: 31
PA: 65/38
RV: 65/22
RA: 21
Oximetry: Ao 97%, PA 54%, cardiac output 3.3, cardiac index 1.7
CORONARY ANGIOGRAPHY
Dominance: Right
Left Main: Normal
LAD: Normal
Circumflex: Normal
RCA: 99% ostial stenosis. There is sluggish flow into the proximal RCA
Of note, our plan was to perform this procedure from the right radial artery. Access was easily obtained and a 5 Faroese right radial artery sheath placed. Heparin 6000 units was administered. There was significant innominate tortuosity; however,
we were able to engage the left coronary and perform left coronary angiography in multiple projections. We were unable to access the right coronary artery despite using JR4 and AL-1 diagnostic catheters. A 5 Faroese DAVIN catheter could not be
advanced through the innominate artery due to spasm and at this point it was clear that we would be unable to access the ascending aorta from the right radial artery approach. A decision was made to access the right femoral artery to complete the
study with right coronary angiography. After easily accessing the right femoral artery using the micropuncture technique, a 5 Faroese sheath was placed. We were unable to pass a standard J-wire past the proximal external iliac artery. Similarly, a
hydrophilic small J-wire and an angled Glidewire were not not able to be passed into the common iliac. Although right femoral artery sheath pressure was identical to previously recorded aortic pressures, we opted for left femoral artery access as
there was some contrast hanging up on a puff through the RFA sheath consistent with retrograde dissection. A 5 Faroese LFA sheath was placed easily using a micropuncture technique and a 6 Faroese sheath placed in the left femoral vein. This allowed
us to perform right heart catheterization, selective right coronary artery angiography and abdominal aortography with bilateral iliofemoral runoff.
Lower extremity angiography: Aortography above the femoral bifurcation was performed at the conclusion of the procedure to assess the right iliofemoral vessels and to assess access for possible TAVR bilaterally. There is no evidence of
atherosclerotic disease in the right common femoral artery and no angiographic evidence of residual dissection in the common femoral artery. Both the right and left femoral artery arteriotomy sites are in the mid common femoral artery. Vessel
diameter estimates by angiography suggest that she will be a candidate for transfemoral TAVR
CONCLUSIONS
1: Borderline systemic blood pressure
2: Markedly elevated left and right heart filling pressures with moderate to severe pulmonary hypertension
3. Low cardiac output state
4. Single-vessel CAD with subtotal occlusion of the ostial RCA
5. No significant atherosclerotic disease of the iliofemoral vessels bilaterally
6. No PCI attempt was contemplated as the patient requested that only a diagnostic study be performed
7. Known severe aortic stenosis (bicuspid valve with mean gradient 56 mmHg) not evaluated invasively
8. She will need continued diuresis and may benefit from a period of inotropic support
9. It is unclear whether she will agree to to have a heart and similarly unclear whether TAVR will improve her prognosis given the evidence of right heart dysfunction by echo and cath
TTE: 08/09/23:
CONCLUSIONS
Moderately reduced left ventricular systolic function. Global hypokinesis.
Left ventricular ejection fraction is 36% by volumetric assessment.
Enlarged right ventricular size with reduced systolic function.
Stage II diastolic dysfunction suggestive of abnormal relaxation and increased
filling pressures
Moderate mitral regurgitation.
Calcified bicuspid aortic valve. Trace aortic regurgitation.
Severe aortic stenosis with peak/mean gradients across the aortic valve are
89/56 mmHg.
Moderate pulmonary hypertension.
Compared to previous echo 11/12/2020, the ejection fraction has decreased from
60-65% to 36%. The right ventricle is dilated and hypokinetic. Moderate
pulmonary hypertension is new.
Physical Exam
Vital Signs/Labs
Vital Signs
Temp Pulse Resp BP Pulse Ox
97.5 F 68 12 87/63 99
08/13/23 06:53 08/13/23 07:00 08/13/23 06:53 08/13/23 06:54 08/13/23 08:57
08/12/23 08/13/23 08/14/23
06:59 06:59 06:59
Actual Weight 96.9 kg 96.615 kg
08/11/23 03:21
08/13/23 04:11
Magnesium 1.6 mg/dl (1.6-2.3) 08/13/23 04:11
Triglycerides 68 mg/dl (10-149) 08/11/23 10:13
LDL Cholesterol, Calc 45 mg/dl 08/11/23 10:13
VLDL Cholesterol, Calc 13 mg/dl (0-30) 08/11/23 10:13
HDL Cholesterol 20 mg/dl 08/11/23 10:13
08/06/23
22:44
[id number] Pept
Physical Exam
Constitutional: No acute distress
Cardiovascular: Rhythm & rate is regular, Pedal edema present (trace b/l with pito wraps in place) and Systolic murmur present (crescendo decrescendo in the rusb)
Respiratory: Respiratory effort normal, Lungs clear to auscul., Wheeze Absent, Crackles Absent and Rhonchi Absent
Neuro/Psych: AO x 3
Data Reviewed
-
Date of Service: August 13, 2023
--- NOTE | 2023-08-13 10:11 | W.PN.UPDATE ---
Update Note
Progress Note Update
Patient and studies discussed by the heart team at the Shared Decision Making meeting. Patient felt to be high risk for TAVR given multiple co-morbidities including but not limited to morbid obesity, high risk for infection/sepsis, bed bound status.
Benefit of the TAVR does not appear to outweigh the associated risks with the procedure. Decision made to not offer TAVR procedure. Will offer to get all records if she would like to seek a second opinion.
[2023-08-13] MEDS: ULTRAM 25 MG PO ×2 (14:42→18:37)
--- NOTE | 2023-08-13 15:15 | CM ---
Addendum entered by Becki Gupta 08/13/23 16:08:
[facility] may have a bed available on early next week if SNF/Rehab. indicated.
Original Note:
Reviewed chart. Telephone call to [facility] to make the referral. Sent referral. Telephone call to [facility] to check on inpatient hospice bed availability if needed. Left message. Tries to see Mrs. Callahan several times
without success. Will continue to try yo meet with her to review discharge plans. SNF at [facility] versus hospice care in a facility.
[2023-08-13] MEDS: VESICARE 10 MG PO (18:39)
[2023-08-13] MEDS: LIPITOR 40 MG PO (18:39)
[2023-08-13] MEDS: LOVENOX 40 MG SC (18:39)
--- NOTE | 2023-08-13 19:33 | PTCARENOTE ---
Pt very lethargic until mid morning. With great encouragement pt worked with PT/OT and sat on the side of the bed and stood for a few seconds. Pt sleeping for much of the day, she continues to refuse to be turned . Lasix held today per
. Pt denies any pain while she is still and requests to be woken up for round the clock neurontin and tramadol. Wounds changed as ordered. Telemetry shows sinus rhythm with first degree block at a rate of 70-110, SBPs 88-110.
[2023-08-14] MEDS: NEURONTIN 300 MG PO ×4 (00:28→18:03)
[2023-08-14 01:58] VITALS: BP 95/72
[2023-08-14 02:40] LABS: Blood Urea Nitrogen 21 mg/dl (7-17); Calcium 8.7 mg/dl (8.4-10.2); Carbon Dioxide 37 mmol/L (22-30); Chloride 91 mmol/L (98-107); Estimated Creatinine Clearance 57 ml/min; Glucose 101 mg/dl (70-99); Potassium 4.5 mmol/L (3.5-5.1); Sodium 132 mmol/L (135-145); eGFR > 60.00
[2023-08-14 06:00] VITALS: BMI 42.2
--- NOTE | 2023-08-14 07:33 | W.PN.HOSP.TC ---
Today's Communication/Plan
-
She is strongly considering the hospice transition after repeated discussions of goals of care she wants to wait for her son to come in from [place] today to further discuss
Will have the case management pursue hospice facilities that are available to her
Assessment / Plan
Assessment / Plan
Physical Exam
General: No Apparent Distress and Morbidly Obese/somnolent this morning although able to arouse from sleep
HEENT: Normocephalic, Anicteric and Moist mucous membranes
Respiratory: CTAB
Cardiac: S1/S2, Regular Rhythm, Tachycardia and Murmur (Loud ejection systolic mm at LUSB )
GI: Soft, Non Tender, Non Distended and Normal Bowel Sounds
Musculoskeletal: Edema, Left Lower Extremity (massive ), Edema, Right Lower Extremity (massive ) and Other (both legs are wrapped )
Neuro: AO x 3
Psych: Calm
Assessment/Plan
Progressive Dyspnea
Presentation with Increasing Generalized Weakness and Leg Swelling
Acute on Chronic HFpEF -- likely related to patient's severe aortic stenosis
Non compliance with Lasix (for the past 2 to 3 weeks prior to presentation) due to the fact that it's hard for her to get and go to the bathroom
Lives independently at home but spends most of her time on recliner
- CXR as per radiologist's report showed 'Mild pulmonary vascular congestion. Left midlung atelectasis. Cardiomegaly.'
- proBNP was 10253 on presentation
- Continue PO Lasix 40 mg BID (patient takes 40 mg daily at home)/being held at times due to low BP
- Daily Is and Os
- Daily BMP/will defer further blood work with decision process toward comfort care and hospice pending
- Cardiology consulted
will undergo evaluation for TAVR with case discussions to be undertaken on 12 August and based on risks benefits and poor performance status decision made not interventional candidate
-It has been explained that palliation may be the only choice at this point/again had long discussion and both cardiology and the medical service now recommending palliation care and a outpatient hospice facility strongly recommended she is
considering this seriously and wants to speak with her son who is coming in from [place] today.
Volume overload ; chronic with acute element due to non compliance with Lasix
Chronic Lymphedema of both legs
- PO fluid restriction
- Hold amlodipine for now.
-Has lost a total of almost 13 kg of weight since arrival
- Continue diuresis as above
Hyperkalemia
- Continue to hold Valsartan
- f/u K in response to diuresis
-Cannot be resumed
Elevated TPNI - Non-[place] Troponin Elevation due to acute HF
No CP
- Trending troponins -- although elevated, they show an unremarkable trend
Severe Aortic Stenosis
History of bicuspid aortic valve
Patient denies lightheadedness / dizziness.
-Repeat 2D echocardiogram reviewed and compared to 2019 noting diminished EF now down to 35% from 65%/severe aortic stenosis/increased pulmonary hypertension and RV dilatation
-LVOT 2.0 cm/KORI of 0.44/
-Left heart cath yesterday noted 99% ostial RCA lesion patient refused PCI/
-GDMT/not ideal to pursue aggressively given BP constraints/valsartan was resumed but now on hold due to BP
-Cardiology in the medical service after obtaining opinion from the CT surgery service in regards to viability for TAVR found to have prohibitive risk benefit ratio for any thoughts of intervention/pulm services opinion now is palliation and
transition to hospice care which she is considering
Essential Hypertension
- Held amlodipine as noted above as this can worsen edema.
- Held valsartan due to hyperkalemia
- Observe BP
Chronic ambulatory dysfunction: multifactorial origins
mostly in recliner but walk short distance to BR
Multifactorial gait dysfunction
History of fall with persistent neck pain
History of Rhabdomyolysis
DJD, Morbid obesity
- s/p bilateral TKA.
- Has chronic L hip pain
- Pain control
-Patient remains very sedentary and even resistant to changes in bed position at times.
History of GERD
History of Irritable Bowel Syndrome
History of Crohn's Disease?
Morbid Obesity due to calorie excess
- Ability to exercise is significantly impaired by gait dysfunction, DJD, etc.
Long history of wounds
- Continue wound care
History of MRSA colonization
History of Urinary Tract Infection
Depression and anxiety
-By history and discussion of the family not been treated
-She herself has been resistant to therapy
-May have related to family members that she wanted to
-She was seen and evaluated by psychiatry here no evidence of any active depression or suicidal ideation/seemingly appropriate for decision-making also
-She continues to be steadfast in refusing intervention for her severe aortic stenosis
-She remains having a lot of frustrations in relation to her family issues especially with her brother and son want her to pursue intervention for her valve which she is resistant to since 'it is not bothering me'
August 11/2024/11 AM
Long discussion on goals of care and the fact that the patient has had a living will in place stating DNR status for years and she is frustrated over the fact that that was not instituted on her arrival here I assured her after our discussion and
going over all the the tenants of a DO NOT RESUSCITATE order she wants that placed in her chart we also discussed the fact that this would not preclude the scheduled meeting with cardiothoracic surgery over the options available to her in regards to
her aortic valve scheduled for tomorrow.
DVT Prophylaxis: Lovenox
Code Status: DNR/DNI based on above
Anticipated Discharge: Within 24 hours
Subjective/Interval History
-
Date of Service: August 14, 2023
Explained to patient that had conversation with her son yesterday was coming in to see her later today and will be discussing issues of goals of care and transition from the hospital setting is my recommendation and she understands that I am
recommending a hospice facility for her further care she seems to be in favor of this but still would like to converse with her son.
Objective Data
-
Labs:
Laboratory Results
08/14/23
02:07
Sodium 132 L
Potassium 4.5
Chloride 91 L
Carbon Dioxide 37 H
BUN 21 H
Creatinine 0.9
Glucose 101 H
Calcium 8.7
Vital Signs:
Vital Signs
Temp Pulse Resp BP Pulse Ox
98.7 F 113 17 95/72 94
08/14/23 02:00 08/14/23 02:00 08/14/23 02:00 08/14/23 01:58 08/14/23 02:00
I&O
08/13/23 08/14/23 08/15/23
06:59 06:59 06:59
Intake Total 120 / 120 540 / 540
Output Total 700 / 700 300 / 300
Balance -580 / -580 240 / 240
Review of Systems
-
History Source: Patient
Constitutional: Reports Fatigue and Weakness
Respiratory: Reports No Symptoms
Cardiac: Reports No Symptoms
Abdomen/GI: Reports No Symptoms
Physical Exam
-
General: No Apparent Distress
HEENT: Normocephalic
Respiratory: Clear to Auscultation
Cardiac: Irregular Rhythm and Murmur
Neuro: Awake, Alert, Oriented and AO x 3
Psych: Calm and Intact Judgement/Insight
Data Reviewed
-
Total Time Spent with Patient (in minutes): 56
Labs: Labs Reviewed by me
[2023-08-14 08:10] VITALS: BP 99/76
[2023-08-14] MEDS: LASIX 40 MG PO ×2 (08:15→15:37)
[2023-08-14] MEDS: PROTONIX 40 MG PO ×2 (08:16→20:27)
[2023-08-14] MEDS: ASPIR LOW (ENTERIC COATED) 81 MG PO (08:16)
[2023-08-14] MEDS: NSS (PRESERVATIVE FREE) 8 ML IV ×2 (08:16→20:27)
[2023-08-14] MEDS: PEPCID 20 MG IV ×2 (08:17→20:28)
[2023-08-14] MEDS: DESENEX/MITRAZOL/ZEASORB 1 APPLIC TOPICAL ×2 (08:19→20:27)
--- NOTE | 2023-08-14 09:54 | W.PN.CD ---
Today's Communication / Plan
-
oral lasix and assessment
ongoing GOC discuss with son when he arrives
Impression / Plan
-
BACKGROUND: 72F who presented with weakness and shortness of breath.
HFrEF, acute on chronic
-Presented with SOB, vascular congestion on CXR, & proBNP 20K
-LVEF 60-65% in Sep, 2019, now EF 36%, RV mildly dilated and hypokinetic
-RHC with PCWP 31 RA 21 PA 65/38 CO 1.7 (wt 104.1 kg, but wts have been unreliable as using a bed scale).
-Diuresis has been impressive. Wt has dropped from 240 to 213 (27 lbs)
- BP now low, cr stable and wti up (on a bed scale)
-will give oral lasix and assess response. Still a tenuous situation requiring intense monitoring of vitals and lab.
-GDMT as tolerated---bp wont tolerate currently
-PITO/ARB: typically on Valsartan 160mg
-SGLT2: Case management to [facility]
-MRA: She presented with hyperkalemia
-Trend daily weight, I/Os, and BMP with diuresis
-Heart failure education
Aortic stenosis, bicuspid, severe
-Peak/mean gradients 89/56 mmHg
-LVOT 2.0cm, KORI 0.44 with trace appreciate structural team consult, case to be discussed 08/13/23 meeting.
-discussed at Valve Multidisciplinary meeting 08/13/23. She is not a candidate for high risk intervention given co morbidities, essentially bedbound status, it was felt the risk was >>>> than any potential benefit.
-we discussed palliation and hospice referral, she will discuss with her son who is arriving today from [place]
-I did offer to make her cath data available to any center if she wishes to pursue a second opinion.
CAD: no chest pain
-99% ostial RCA
-Peak trop this admission was 0.090.
-We may offer attempt at ostial RCA PCI at time of TAVR
-continue asa/statin
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
-treat CHF
Severe lymphedema and shronic lower extremity wounds---wound care consulted
-great improvement with wraps
IBS with chronic diarrhea
Ascending thoracic aortic dilatation
Moderate mitral regurgitation.
Moderate pulmonary HTN
Hypertension,
Ambulatory dysfunction requiring rolling walker
Morbid obesity, BMI > 45
Long history of lymphedema
Severe orthopedic disease
Outpatient palliative care, last seen 07/[address] Moreno
History of MRSA colonization
Son: Phoenix Pereze(cardiology) at his phone number [phone].
Subjective: She is feeling better, breathing is ok, less pain in the legs with diuresis and wrapping. no further chest discomfort
Data:
R/[facility] 08/11/23: HEMODYNAMIC DATA
AO: 95/67
LV: Not done
PCWP: 31
PA: 65/38
RV: 65/22
RA: 21
Oximetry: Ao 97%, PA 54%, cardiac output 3.3, cardiac index 1.7
CORONARY ANGIOGRAPHY
Dominance: Right
Left Main: Normal
LAD: Normal
Circumflex: Normal
RCA: 99% ostial stenosis. There is sluggish flow into the proximal RCA
Of note, our plan was to perform this procedure from the right radial artery. Access was easily obtained and a 5 Cuban right radial artery sheath placed. Heparin 6000 units was administered. There was significant innominate tortuosity; however,
we were able to engage the left coronary and perform left coronary angiography in multiple projections. We were unable to access the right coronary artery despite using JR4 and AL-1 diagnostic catheters. A 5 Cuban DAVIN catheter could not be
advanced through the innominate artery due to spasm and at this point it was clear that we would be unable to access the ascending aorta from the right radial artery approach. A decision was made to access the right femoral artery to complete the
study with right coronary angiography. After easily accessing the right femoral artery using the micropuncture technique, a 5 Cuban sheath was placed. We were unable to pass a standard J-wire past the proximal external iliac artery. Similarly, a
hydrophilic small J-wire and an angled Glidewire were not not able to be passed into the common iliac. Although right femoral artery sheath pressure was identical to previously recorded aortic pressures, we opted for left femoral artery access as
there was some contrast hanging up on a puff through the RFA sheath consistent with retrograde dissection. A 5 Cuban LFA sheath was placed easily using a micropuncture technique and a 6 Cuban sheath placed in the left femoral vein. This allowed
us to perform right heart catheterization, selective right coronary artery angiography and abdominal aortography with bilateral iliofemoral runoff.
Lower extremity angiography: Aortography above the femoral bifurcation was performed at the conclusion of the procedure to assess the right iliofemoral vessels and to assess access for possible TAVR bilaterally. There is no evidence of
atherosclerotic disease in the right common femoral artery and no angiographic evidence of residual dissection in the common femoral artery. Both the right and left femoral artery arteriotomy sites are in the mid common femoral artery. Vessel
diameter estimates by angiography suggest that she will be a candidate for transfemoral TAVR
CONCLUSIONS
1: Borderline systemic blood pressure
2: Markedly elevated left and right heart filling pressures with moderate to severe pulmonary hypertension
3. Low cardiac output state
4. Single-vessel CAD with subtotal occlusion of the ostial RCA
5. No significant atherosclerotic disease of the iliofemoral vessels bilaterally
6. No PCI attempt was contemplated as the patient requested that only a diagnostic study be performed
7. Known severe aortic stenosis (bicuspid valve with mean gradient 56 mmHg) not evaluated invasively
8. She will need continued diuresis and may benefit from a period of inotropic support
9. It is unclear whether she will agree to to have a heart and similarly unclear whether TAVR will improve her prognosis given the evidence of right heart dysfunction by echo and cath
TTE: 08/09/23:
CONCLUSIONS
Moderately reduced left ventricular systolic function. Global hypokinesis.
Left ventricular ejection fraction is 36% by volumetric assessment.
Enlarged right ventricular size with reduced systolic function.
Stage II diastolic dysfunction suggestive of abnormal relaxation and increased
filling pressures
Moderate mitral regurgitation.
Calcified bicuspid aortic valve. Trace aortic regurgitation.
Severe aortic stenosis with peak/mean gradients across the aortic valve are
89/56 mmHg.
Moderate pulmonary hypertension.
Compared to previous echo 11/12/2020, the ejection fraction has decreased from
60-65% to 36%. The right ventricle is dilated and hypokinetic. Moderate
pulmonary hypertension is new.
Physical Exam
Vital Signs/Labs
Vital Signs
Temp Pulse Resp BP Pulse Ox
98.7 F 113 17 95/72 94
08/14/23 02:00 08/14/23 02:00 08/14/23 02:00 08/14/23 01:58 08/14/23 02:00
08/13/23 08/14/23 08/15/23
06:59 06:59 06:59
Actual Weight 96.615 kg 98 kg
08/11/23 03:21
08/14/23 02:07
Magnesium 1.6 mg/dl (1.6-2.3) 08/13/23 04:11
Triglycerides 68 mg/dl (10-149) 08/11/23 10:13
LDL Cholesterol, Calc 45 mg/dl 08/11/23 10:13
VLDL Cholesterol, Calc 13 mg/dl (0-30) 08/11/23 10:13
HDL Cholesterol 20 mg/dl 08/11/23 10:13
08/06/23
22:44
[id number] Pept
Physical Exam
Constitutional: No acute distress and Comfortable
Cardiovascular: Rhythm & rate is regular, Pedal edema present (b/l le edema with wraps on ) and Systolic murmur present
Respiratory: Respiratory effort normal and Other (few bibasilar rales)
Neuro/Psych: AO x 3
Data Reviewed
-
Date of Service: August 14, 2023
EKG: Other (tele sinus tachycardia with some pvcs)
--- NOTE | 2023-08-14 10:06 | PTCARENOTE ---
Assumed care of pt from night RN. Pt received awake and alert, Ox3. VSS, CM shows NSR with first degree AVB, POX93% on 2 liters. Pt discussing Palliative vs Hospice care at this time. Purewick in place for incontinence. Bilateral groin and right
radial sites remain CDI/ Tanmay wraps in place to LE. Pt denies any pain or discomfort at this time.
[2023-08-14 11:41] VITALS: BP 99/76
[2023-08-14 15:53] VITALS: BP 106/81
[2023-08-14] MEDS: LIPITOR 40 MG PO (18:02)
[2023-08-14] MEDS: VESICARE 10 MG PO (18:03)
[2023-08-14] MEDS: LOVENOX 40 MG SC (18:03)
[2023-08-14 19:06] VITALS: BP 100/78
--- NOTE | 2023-08-14 21:11 | PTCARENOTE ---
Pt seated on the edge of the bed when this RN walking in to do an assessment and pass Meds- Pt aox2 to time and self but not place insisting that she came from another room and that she was still on the 4th floor- pt making rude comments to RN when
RN was asking questions. Bed swapped out for a working bed- and bed alarm in place. VSS. POC discussed pt verbalized understanding. ST with a 1st degree on the monitor. Purwick in place and changed per policy.
[2023-08-14 22:15] VITALS: BP 92/76
[2023-08-15] VITALS (9 sets, daily range): BP systolic 87–112; BP diastolic 65–80; BMI 41.9
[2023-08-15] MEDS: NEURONTIN PO (02:39)
[2023-08-15] MEDS: NEURONTIN 300 MG PO (05:22)
--- NOTE | 2023-08-15 07:36 | W.PN.HOSP.TC ---
Addendum entered and electronically signed by Santhosh Bob MD 08/15/23 07:51:
Spoke to patient's son who also found her to be in a state of confusion yesterday and she was making inappropriate comments throughout the day and night to staff wonder if if not oversedated from her gabapentin she did not receive any dosing of her
tramadol which was already made as needed yesterday will reduce the gabapentin from 300 to 200 mg as it is presently scheduled we agreed to obtain a ABG to see if she has any CO2 retention as a cause of her symptoms and hypoxia otherwise toxic
metabolic encephalopathy possibly in relation to her ongoing hypotension and her underlying severe valvulopathy
Original Note:
Today's Communication/Plan
-
Will need to confer with her son who came in from [place] last night
Right now patient seen no way shape or form able to make decision making given her levels of disorientation and confusion
May have to have psychiatry come back and decide on decision making capacity
May need to reduce dosing of gabapentin
Need to get further goals of care discussions and transition to hospice if can
Assessment / Plan
Assessment / Plan
Physical Exam
General: No Apparent Distress and Morbidly Obese/somnolent this morning although able to arouse from sleep
HEENT: Normocephalic, Anicteric and Moist mucous membranes
Respiratory: CTAB
Cardiac: S1/S2, Regular Rhythm, Tachycardia and Murmur (Loud ejection systolic mm at LUSB )
GI: Soft, Non Tender, Non Distended and Normal Bowel Sounds
Musculoskeletal: Edema, Left Lower Extremity (massive ), Edema, Right Lower Extremity (massive ) and Other (both legs are wrapped )
Neuro: AO x 3
Psych: Calm
Assessment/Plan
Progressive Dyspnea
Presentation with Increasing Generalized Weakness and Leg Swelling
Acute on Chronic HFpEF -- likely related to patient's severe aortic stenosis
Non compliance with Lasix (for the past 2 to 3 weeks prior to presentation) due to the fact that it's hard for her to get and go to the bathroom
Lives independently at home but spends most of her time on recliner
- CXR as per radiologist's report showed 'Mild pulmonary vascular congestion. Left midlung atelectasis. Cardiomegaly.'
- proBNP was on presentation
- Continue PO Lasix 40 mg BID (patient takes 40 mg daily at home)/being held at times due to low BP
- Daily Is and Os
- Daily BMP/will defer further blood work with decision process toward comfort care and hospice pending
- Cardiology consulted
will undergo evaluation for TAVR with case discussions to be undertaken on 12 August and based on risks benefits and poor performance status decision made not interventional candidate
-It has been explained that palliation may be the only choice at this point/again had long discussion and both cardiology and the medical service now recommending palliation care and a outpatient hospice facility strongly recommended she is
considering this seriously and wants to speak with her son who is coming in from [place] today.
Volume overload ; chronic with acute element due to non compliance with Lasix
Chronic Lymphedema of both legs
- PO fluid restriction
- Hold amlodipine for now.
-Has lost a total of almost 13 kg of weight since arrival
- Continue diuresis as above
Hyperkalemia
- Continue to hold Valsartan
- f/u K in response to diuresis
-Cannot be resumed
Elevated TPNI - Non-[place] Troponin Elevation due to acute HF
No CP
- Trending troponins -- although elevated, they show an unremarkable trend
Severe Aortic Stenosis
History of bicuspid aortic valve
Patient denies lightheadedness / dizziness.
-Repeat 2D echocardiogram reviewed and compared to 2019 noting diminished EF now down to 35% from 65%/severe aortic stenosis/increased pulmonary hypertension and RV dilatation
-LVOT 2.0 cm/KORI of 0.44/
-Left heart cath yesterday noted 99% ostial RCA lesion patient refused PCI/
-GDMT/not ideal to pursue aggressively given BP constraints/valsartan was resumed but now on hold due to BP
-Cardiology in the medical service after obtaining opinion from the CT surgery service in regards to viability for TAVR found to have prohibitive risk benefit ratio for any thoughts of intervention/pulm services opinion now is palliation and
transition to hospice care which she is considering
Essential Hypertension
- Held amlodipine as noted above as this can worsen edema.
- Held valsartan due to hyperkalemia
- Observe BP
Chronic ambulatory dysfunction: multifactorial origins
mostly in recliner but walk short distance to BR
Multifactorial gait dysfunction
History of fall with persistent neck pain
History of Rhabdomyolysis
DJD, Morbid obesity
- s/p bilateral TKA.
- Has chronic L hip pain
- Pain control
-Patient remains very sedentary and even resistant to changes in bed position at times.
History of GERD
History of Irritable Bowel Syndrome
History of Crohn's Disease?
Morbid Obesity due to calorie excess
- Ability to exercise is significantly impaired by gait dysfunction, DJD, etc.
Long history of wounds
- Continue wound care
History of MRSA colonization
History of Urinary Tract Infection
Depression and anxiety
-By history and discussion of the family not been treated
-She herself has been resistant to therapy
-May have related to family members that she wanted to
-She was seen and evaluated by psychiatry here no evidence of any active depression or suicidal ideation/seemingly appropriate for decision-making also
-She continues to be steadfast in refusing intervention for her severe aortic stenosis
-She remains having a lot of frustrations in relation to her family issues especially with her brother and son want her to pursue intervention for her valve which she is resistant to since 'it is not bothering me'
August 11/2024/ AM
Long discussion on goals of care and the fact that the patient has had a living will in place stating DNR status for years and she is frustrated over the fact that that was not instituted on her arrival here I assured her after our discussion and
going over all the the tenants of a DO NOT RESUSCITATE order she wants that placed in her chart we also discussed the fact that this would not preclude the scheduled meeting with cardiothoracic surgery over the options available to her in regards to
her aortic valve scheduled for tomorrow.
DVT Prophylaxis: Lovenox
Code Status: DNR/DNI based on above
Anticipated Discharge: Within 24 hours
Subjective/Interval History
-
Date of Service: August 15, 2023
Patient not making much sense this morning seems somnolent when asked where she was she thought she was at home when asked if her son came in to see her he only stated 'he plans on retiring' we did not have any discussion like that. Was
inappropriate with comments to nursing yesterday.
Objective Data
-
Vital Signs:
Vital Signs
Temp Pulse Resp BP Pulse Ox
97.9 F 80 18 93/77 96
08/15/23 04:12 08/15/23 06:00 08/15/23 04:12 08/15/23 05:22 08/15/23 04:12
I&O
08/14/23 08/15/23 08/16/23
06:59 06:59 06:59
Intake Total 540 / 540
Output Total 300 / 300 600 / 600
Balance 240 / 240 -600 / -600
Review of Systems
-
Unable to obtain full review of systems at this time due to: Dementia
History Source: Patient
Constitutional: Reports Weight Loss
Respiratory: Reports Trouble Breathing
Musculoskeletal: Reports Edema, Arthralgias, Myalgias and Muscle Weakness
Physical Exam
-
General: Morbidly Obese
HEENT: Normocephalic
Respiratory: Clear to Auscultation
Cardiac: S1/S2 and Murmur
GI: Soft and Nontender
Skin: IV Access / Catheter Site
Neuro: Awake; Negative Alert, Oriented or AO x 3
Data Reviewed
-
Total Time Spent with Patient (in minutes): 56
Labs: Labs Reviewed by me (Labs today)
[2023-08-15] MEDS: LASIX 40 MG PO (08:25)
[2023-08-15] MEDS: PROTONIX 40 MG PO ×2 (08:25→20:09)
[2023-08-15] MEDS: ASPIR LOW (ENTERIC COATED) 81 MG PO (08:25)
[2023-08-15] MEDS: PEPCID 20 MG IV ×2 (08:26→20:09)
[2023-08-15] MEDS: NSS (PRESERVATIVE FREE) 8 ML IV ×2 (08:26→20:09)
[2023-08-15] MEDS: DESENEX/MITRAZOL/ZEASORB 1 APPLIC TOPICAL ×2 (08:27→20:08)
[2023-08-15 08:53] LABS: B.E. 16.3 mmol/L; O2 Saturation % 94.5 % (94-98); PCO2 49 mmHg (32-35); PO2 62 mmHg (83-108); pH 7.53 (7.35-7.45)
[2023-08-15 08:54] LABS: HCO3 40.9 mmol/L (21-28)
--- NOTE | 2023-08-15 09:13 | PTCARENOTE ---
Assumed care of pt from night RN. Events of last night reviewed. Pt received asleep but wakens to verbal, refuses breakfast at this time. ABG obtained by . [place] in place and working. Tanmay wraps intact bilaterally.
[2023-08-15 10:34] LABS: Blood Urea Nitrogen 20 mg/dl (7-17); Calcium 8.4 mg/dl (8.4-10.2); Carbon Dioxide 35 mmol/L (22-30); Chloride 95 mmol/L (98-107); Estimated Creatinine Clearance 57 ml/min; Glucose 97 mg/dl (70-99); Sodium 132 mmol/L (135-145); eGFR > 60.00
--- NOTE | 2023-08-15 13:32 | W.PN.CD ---
Today's Communication / Plan
-
Hold further Lasix at this time.
Chest x-ray
Discharge planning
Impression / Plan
-
BACKGROUND: 72F who presented with weakness and shortness of breath.
HFrEF, acute on chronic
-Presented with SOB, vascular congestion on CXR, & proBNP 20K
-LVEF 60-65% in Sep, 2019, now EF 36%, RV mildly dilated and hypokinetic
-RHC with PCWP 31 RA 21 PA 65/38 CO 1.7 (wt 104.1 kg, but wts have been unreliable as using a bed scale).
-Diuresis has been impressive. Wt has dropped from 240 to 214 (27 lbs)
-Now with a metabolic alkalosis, will hold Lasix today and tomorrow morning to reassess.
-GDMT as tolerated---bp wont tolerate currently
-PITO/ARB: typically on Valsartan 160mg
-SGLT2: Case management to anthony
-MRA: She presented with hyperkalemia
-Trend daily weight, I/Os, and BMP with diuresis
-Heart failure education
Hypoxia: Patient's at the bedside last night noticed an episode of hypoxia down to 88% with a good Pleth. He reports Ike-Nicole breathing pattern.
-ABG done shows some hypoxia with a gradient. I suspect some of this due to atelectasis given she is basically bedbound and morbidly obese. However, with her altered mental status aspiration is a good consideration.
-Will check chest x-ray
-Will order ICS
Aortic stenosis, bicuspid, severe
-Peak/mean gradients 89/56 mmHg
-LVOT 2.0cm, KORI 0.44 with trace appreciate structural team consult, case to be discussed 08/13/23 meeting.
-discussed at Valve Multidisciplinary meeting 08/13/23. She is not a candidate for high risk intervention given co morbidities, essentially bedbound status, it was felt the risk was >>>> than any potential benefit.
-we are discussing palliation and hospice referral,
-I did offer to make her cath data available to any center if she wishes to pursue a second opinion.
Atrial tachycardia: Noted episodes of atrial tachycardia in the 1 teens, initially I felt this was sinus tachycardia but now telemetry reveals episodes where she breaks into sinus rhythm. The P waves are very close but not identical. Suspect an
focus near the sinus node. Regardless, at this point would not maximiliano with antiarrhythmic therapy. No blood pressure room for beta-cornell. She is asymptomatic.
TME:
-She is a bit disoriented and at times less responsive. Medications are being adjusted to limit sedating effects. ABG did not reveal significant respiratory acidosis rather an appropriate compensation.
CAD: no chest pain
-99% ostial RCA
-Peak trop this admission was 0.090.
-We may offer attempt at ostial RCA PCI at time of TAVR
-continue asa/statin
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
-treat CHF
Severe lymphedema and shronic lower extremity wounds---wound care consulted
-great improvement with wraps
IBS with chronic diarrhea
Ascending thoracic aortic dilatation
Moderate mitral regurgitation.
Moderate pulmonary HTN
Hypertension,
Ambulatory dysfunction requiring rolling walker
Morbid obesity, BMI > 45
Long history of lymphedema
Severe orthopedic disease
Outpatient palliative care, last seen 07/[address] Moreno
History of MRSA colonization
Son: Dr. Phoenix Callahan(cardiology) at his phone number [phone].
Discharge planning underway
Subjective: She is feeling better, breathing is ok, less pain in the legs with diuresis and wrapping. no further chest discomfort
Data:
R/LHC 08/11/23: HEMODYNAMIC DATA
AO: 95/67
LV: Not done
PCWP: 31
PA: 65/38
RV: 65/22
RA: 21
Oximetry: Ao 97%, PA 54%, cardiac output 3.3, cardiac index 1.7
CORONARY ANGIOGRAPHY
Dominance: Right
Left Main: Normal
LAD: Normal
Circumflex: Normal
RCA: 99% ostial stenosis. There is sluggish flow into the proximal RCA
Of note, our plan was to perform this procedure from the right radial artery. Access was easily obtained and a 5 Cypriot right radial artery sheath placed. Heparin 6000 units was administered. There was significant innominate tortuosity; however,
we were able to engage the left coronary and perform left coronary angiography in multiple projections. We were unable to access the right coronary artery despite using JR4 and AL-1 diagnostic catheters. A 5 Cypriot DAVIN catheter could not be
advanced through the innominate artery due to spasm and at this point it was clear that we would be unable to access the ascending aorta from the right radial artery approach. A decision was made to access the right femoral artery to complete the
study with right coronary angiography. After easily accessing the right femoral artery using the micropuncture technique, a 5 Cypriot sheath was placed. We were unable to pass a standard J-wire past the proximal external iliac artery. Similarly, a
hydrophilic small J-wire and an angled Glidewire were not not able to be passed into the common iliac. Although right femoral artery sheath pressure was identical to previously recorded aortic pressures, we opted for left femoral artery access as
there was some contrast hanging up on a puff through the RFA sheath consistent with retrograde dissection. A 5 Cypriot LFA sheath was placed easily using a micropuncture technique and a 6 Cypriot sheath placed in the left femoral vein. This allowed
us to perform right heart catheterization, selective right coronary artery angiography and abdominal aortography with bilateral iliofemoral runoff.
Lower extremity angiography: Aortography above the femoral bifurcation was performed at the conclusion of the procedure to assess the right iliofemoral vessels and to assess access for possible TAVR bilaterally. There is no evidence of
atherosclerotic disease in the right common femoral artery and no angiographic evidence of residual dissection in the common femoral artery. Both the right and left femoral artery arteriotomy sites are in the mid common femoral artery. Vessel
diameter estimates by angiography suggest that she will be a candidate for transfemoral TAVR
CONCLUSIONS
1: Borderline systemic blood pressure
2: Markedly elevated left and right heart filling pressures with moderate to severe pulmonary hypertension
3. Low cardiac output state
4. Single-vessel CAD with subtotal occlusion of the ostial RCA
5. No significant atherosclerotic disease of the iliofemoral vessels bilaterally
6. No PCI attempt was contemplated as the patient requested that only a diagnostic study be performed
7. Known severe aortic stenosis (bicuspid valve with mean gradient 56 mmHg) not evaluated invasively
8. She will need continued diuresis and may benefit from a period of inotropic support
9. It is unclear whether she will agree to to have a heart and similarly unclear whether TAVR will improve her prognosis given the evidence of right heart dysfunction by echo and cath
TTE: 08/09/23:
CONCLUSIONS
Moderately reduced left ventricular systolic function. Global hypokinesis.
Left ventricular ejection fraction is 36% by volumetric assessment.
Enlarged right ventricular size with reduced systolic function.
Stage II diastolic dysfunction suggestive of abnormal relaxation and increased
filling pressures
Moderate mitral regurgitation.
Calcified bicuspid aortic valve. Trace aortic regurgitation.
Severe aortic stenosis with peak/mean gradients across the aortic valve are
89/56 mmHg.
Moderate pulmonary hypertension.
Compared to previous echo 11/12/2020, the ejection fraction has decreased from
60-65% to 36%. The right ventricle is dilated and hypokinetic. Moderate
pulmonary hypertension is new.
Physical Exam
Vital Signs/Labs
Vital Signs
Temp Pulse Resp BP Pulse Ox
97.1 F 86 20 98/73 99
08/15/23 10:46 08/15/23 10:46 08/15/23 10:46 08/15/23 10:46 08/15/23 10:46
08/14/23 08/15/23 08/16/23
06:59 06:59 06:59
Actual Weight 98 kg 97.4 kg
08/11/23 03:21
08/15/23 09:53
Magnesium 1.6 mg/dl (1.6-2.3) 08/13/23 04:11
Triglycerides 68 mg/dl (10-149) 08/11/23 10:13
LDL Cholesterol, Calc 45 mg/dl 08/11/23 10:13
VLDL Cholesterol, Calc 13 mg/dl (0-30) 08/11/23 10:13
HDL Cholesterol 20 mg/dl 08/11/23 10:13
08/06/23
22:44
Qad-[id number]-[id number] Pept
Physical Exam
Constitutional: No acute distress, Comfortable and Other (Oriented to person but and place but not time)
Cardiovascular: Rhythm & rate is regular, Pedal edema present (Toes are cool, legs are wrapped still with pitting edema up through the thighs) and Systolic murmur present (2 out of 6 crescendo decrescendo murmur at the right upper sternal border)
Respiratory: Respiratory effort normal, Wheeze Absent, Rhonchi Absent and Crackles Present (Bibasilar crackles present)
Neuro/Psych: AO x 3
Data Reviewed
-
Date of Service: August 15, 2023
EKG: Other (Telemetry with runs of SVT consistent with atrial tachycardia)
Medical Tests (PFT, Pathology etc): Discussed with Family (Send Dr. Callahan at the bedside discussed plan.)
[2023-08-15] MEDS: LIPITOR 40 MG PO (17:52)
[2023-08-15] MEDS: LOVENOX 40 MG SC (17:52)
[2023-08-15] MEDS: NEURONTIN 200 MG PO (17:55)
[2023-08-15] MEDS: VESICARE 10 MG PO (17:56)
[2023-08-15] MEDS: SENOKOT 8.59999999999999964 MG PO (22:03)
--- NOTE | 2023-08-15 23:26 | PTCARENOTE ---
Patient answered orientation questions appropriately, and can be forgetful at times. Patient c/o being constipated, last BM 6 days ago. Patient w/ hx of IBS. Gabrielle GREENWOOD notified and orders obtained for Senokot, medication administered. Tele
remains Sinus tach w/ 1st AV block and occasional PVCs. HR in the 110-120's and soft bps. Denies any pain. Patient refuses to be turned, educated patient on the importance of turns and concern for pressure wounds. Despite education patient adamantly
refuses. Patient aware of POC, call finch in reach. Bed alarm active.
[2023-08-16] VITALS (10 sets, daily range): BP systolic 101–114; BP diastolic 74–91; PULSE 111; O2SAT 97; BMI 41.4
[2023-08-16] MEDS: NEURONTIN PO (00:13)
[2023-08-16] MEDS: NEURONTIN 200 MG PO ×4 (06:06→23:18)
--- NOTE | 2023-08-16 07:48 | W.PN.HOSP.TC ---
Today's Communication/Plan
-
Spoke with patient's son
Lasix remains on hold
Appreciate cardiology and pulmonary
SNF placement
Assessment / Plan
Assessment / Plan
Physical Exam
General: Not in acute distress
HEENT: Normocephalic, Anicteric and Moist mucous membranes
Respiratory: CTAB
Cardiac: S1/S2, Regular Rhythm, Tachycardia and Murmur (Loud ejection systolic mm at LUSB )
GI: Soft, Non Tender, Non Distended and Normal Bowel Sounds
Musculoskeletal: Edema, Left Lower Extremity (massive ), Edema, Right Lower Extremity (massive ) and Other (both legs are wrapped )
Neuro: AO x 3
Psych: Calm
Assessment/Plan
72-year-old female with severe aortic stenosis CHF and fluid overload underwent TAVR evaluation and considered too high risk based on poor performance status(very obese and lymphedema issues with secondary status) cardiology medical service have
suggested palliative care and hospice facility as doubt she can function at home son who is a invasive cardiology down at [place] in [place] coming in to see to try and convince/also trying to convince to go on antidepressants as a significant
factor/code status was changed to DNR while here/increasing confusion and ABG showed mixed metabolic alkalosis and respiratory acidosis gabapentin reduced
Spoke to patient's son who mentioned patient's usual sleep time is ~3 am to ~10 am which could be the reason for confusion.
Progressive Dyspnea
Presentation with Increasing Generalized Weakness and Leg Swelling
Acute on Chronic HFpEF -- likely related to patient's severe aortic stenosis
Non compliance with Lasix (for the past 2 to 3 weeks prior to presentation) due to the fact that it's hard for her to get and go to the bathroom
Lives independently at home but spends most of her time on recliner
- CXR as per radiologist's report showed 'Mild pulmonary vascular congestion. Left midlung atelectasis. Cardiomegaly.'
- proBNP was 89882 on presentation
- Continue PO Lasix 40 mg BID (patient takes 40 mg daily at home)/being held at times due to low BP
- Daily Is and Os
- Daily BMP/will defer further blood work with decision process toward comfort care and hospice pending
- Cardiology consulted and based on risks benefits and poor performance status decision patient is not an interventional candidate
- It has been explained that palliation may be the only choice at this point/again had long discussion and both cardiology and the medical service now recommending palliation care and a outpatient hospice facility strongly recommended and patient is
considering this seriously
Episodes of Atrial tachycardia
-Trial of low dose beta cornell
Volume overload ; chronic with acute element due to non compliance with Lasix
Chronic Lymphedema of both legs
- PO fluid restriction
- Hold amlodipine for now.
-Has lost a total of almost 30 lbs of weight since arrival
- Hold Lasix given patient's fluid weight loss already and metabolic alkalosis
Hyperkalemia
- Continue to hold Valsartan
- f/u K in response to diuresis
-Cannot be resumed
Elevated TPNI - Non-VA Troponin Elevation due to acute HF
No CP
- Trending troponins -- although elevated, they showed an unremarkable trend
Severe Aortic Stenosis
History of bicuspid aortic valve
Patient denies lightheadedness / dizziness.
-Repeat 2D echocardiogram reviewed and compared to 2019 noting diminished EF now down to 35% from 65%/severe aortic stenosis/increased pulmonary hypertension and RV dilatation
-LVOT 2.0 cm/KORI of 0.44/
-Left heart cath noted 99% ostial RCA lesion patient refused PCI/
-GDMT/not ideal to pursue aggressively given BP constraints/valsartan was resumed but now on hold due to BP
-Cardiology in the medical service after obtaining opinion from the CT surgery service in regards to viability for TAVR found to have prohibitive risk benefit ratio for any thoughts of intervention/pulm services opinion now is palliation and
transition to hospice care which she is considering
Essential Hypertension
- Held amlodipine as noted above as this can worsen edema.
- Held valsartan due to hyperkalemia
- Observe BP
Chronic ambulatory dysfunction: multifactorial origins
mostly in recliner but walk short distance to BR
Multifactorial gait dysfunction
History of fall with persistent neck pain
History of Rhabdomyolysis
DJD, Morbid obesity
- s/p bilateral TKA.
- Has chronic L hip pain
- Pain control
-Patient remains very sedentary and even resistant to changes in bed position at times.
History of GERD
History of Irritable Bowel Syndrome
History of Crohn's Disease?
Morbid Obesity due to calorie excess
- Ability to exercise is significantly impaired by gait dysfunction, DJD, etc.
Long history of wounds
- Continue wound care
History of MRSA colonization
History of Urinary Tract Infection
Depression and anxiety
-By history and discussion of the family not been treated
-She herself has been resistant to therapy
-May have related to family members that she wanted to
-She was seen and evaluated by psychiatry here no evidence of any active depression or suicidal ideation/seemingly appropriate for decision-making also
-She continues to be steadfast in refusing intervention for her severe aortic stenosis
-She remains having a lot of frustrations in relation to her family issues especially with her brother and son want her to pursue intervention for her valve which she is resistant to since 'it is not bothering me'
-Discussed with patient's son -- who requested that Lexapro 5 mg be started
DVT Prophylaxis: Lovenox
Code Status: DNR/DNI based on above
On August 16, 2023, I spoke to patient's son Dr. Callahan.
Total time spent today on performing chart review, seeing and examining the patient, speaking with patient's son, talking with cardiology and talking with patient's nurse, was 55 minutes.
Anticipated Discharge: > 48 hours
Subjective/Interval History
-
Date of Service: August 16, 2023
Patient was seen and examined. She reported no new significant symptoms today, she does have chronic pain in her legs.
Objective Data
-
Vital Signs:
Vital Signs
Temp Pulse Resp BP Pulse Ox
97.7 F 119 20 101/75 98
08/16/23 07:13 08/16/23 07:10 08/16/23 07:13 08/16/23 07:10 08/16/23 07:13
I&O
08/15/23 08/16/23 08/17/23
06:59 06:59 06:59
Intake Total 360 / 360
Output Total 600 / 600 1050 / 1050
Balance -600 / -600 -690 / -690
[2023-08-16] MEDS: ASPIR LOW (ENTERIC COATED) 81 MG PO (08:53)
[2023-08-16] MEDS: NSS (PRESERVATIVE FREE) 8 ML IV ×2 (08:53→21:51)
[2023-08-16] MEDS: PROTONIX 40 MG PO ×2 (08:54→21:51)
[2023-08-16] MEDS: PEPCID 20 MG IV ×2 (08:54→21:51)
[2023-08-16] MEDS: SENOKOT 8.59999999999999964 MG PO (08:54)
[2023-08-16] MEDS: FLUSH (NSS) 2 FLUSH IV (08:54)
[2023-08-16] MEDS: DESENEX/MITRAZOL/ZEASORB 1 APPLIC TOPICAL ×2 (08:55→21:51)
--- NOTE | 2023-08-16 09:30 | WOUNDNOTE ---
R ANKLE/FOOT CREASE (ANTERIOR)
--- NOTE | 2023-08-16 09:30 | WOUNDNOTE ---
R ABDOMEN/GROIN CREASE
--- NOTE | 2023-08-16 09:35 | WOUNDNOTE ---
[facility] RN note: Patient seen for HAPI report for 'stage 2' R abdominal wound. R lower abdominal crease with linear dermal opening r/t moisture not pressure. Miconazole powder being used in abdominal folds. Patient's lower sacrum with slight linear
opening suspect r/t moisture. Discolored areas remain sacral/buttocks. Patient does not like to be turned. Patient turned with help from MARY Zuñiga. Silicone border foam changed on lower sacrum. Silicone foam maintained R lower buttocks. Skin on
heels dull blanchable red and intact. LE edema less with scant serous drainage from RLE. Le's redness and edema improved compared to last weeks picture. Silicone border foam change on R anterior ankle linear dry scabbed ulcer. Pedal pulses heard via
portable Doppler. Dr. Jara and Dr. Bacon visited patient during visit. Confirmed with Dr. Bacon may remove knee high Tanmay wraps q hs; re-apply q am. Heels off bed with pillow. Patient hasn't been out of bed as per discussion with RN
Zara and patient. Will follow as needed.
--- NOTE | 2023-08-16 09:41 | W.PN.CD ---
Today's Communication / Plan
-
hold lasix
trial low dose metoprolol succinate 12.5 mg
s/s eval
d/c planning
Impression / Plan
-
BACKGROUND: 72F who presented with weakness and shortness of breath.
HFrEF, acute on chronic
-Presented with SOB, vascular congestion on CXR, & proBNP 20K
-LVEF 60-65% in Sep, 2019, now EF 36%, RV mildly dilated and hypokinetic
-RHC with PCWP 31 RA 21 PA 65/38 CO 1.7 (wt 104.1 kg, but wts have been unreliable as using a bed scale).
-Diuresis has been impressive. Wt has dropped from 240 to 214 (27 lbs)
-Now with a metabolic alkalosis, pm Lasix held yesterday.
-still negative will hold off on lasix today --but retirement will need some daily dosing reassess daily for now
-GDMT as tolerated---bp wont tolerate currently
-BB: will trial a small dose of bb today as in and out of AT and some BP allowance--start Metoprolol Succinate 12.5mg daily
-PITO/ARB: typically on Valsartan 160mg
-SGLT2: Case management to anthony
-MRA: She presented with hyperkalemia
-Trend daily weight, I/Os, and BMP with diuresis
-Heart failure education
Hypoxia: Patient's at the bedside 08/14/23 noticed an episode of hypoxia down to 88% with a good Pleth. He reports Ike-Nicole breathing pattern.
-ABG done 08/15/23shows some hypoxia with a gradient. I suspect some of this due to atelectasis given she is basically bedbound and morbidly obese. However, with her altered mental status aspiration is a good consideration.
- chest x-ray:1. Mild interstitial and alveolar cardiogenic pulmonary edema.2. MODERATE CARDIOMEGALY.
3. New 2.3 cm focal opacity in the peripheral right midlung which could be focal alveolar pulmonary edema, subsegmental atelectasis, or mild pneumonia.---> no sign of pneumonitis but will check a speech/swallow evaluation
4. Mild elevation of the left hemidiaphragm.
-continue ICS, however she is so weak she couldn't give me a valsalva manuever or strong cough, likely affecting pulmonary effort,further eval per medicine
Aortic stenosis, bicuspid, severe
-Peak/mean gradients 89/56 mmHg
-LVOT 2.0cm, KORI 0.44 with trace appreciate structural team consult, case to be discussed 08/13/23 meeting.
-discussed at Valve Multidisciplinary meeting 08/13/23. She is not a candidate for high risk intervention given co morbidities, essentially bedbound status, it was felt the risk was >>>> than any potential benefit.
-we are discussing palliation and hospice referral,
-I did offer to make her cath data available to any center if she wishes to pursue a second opinion.
Atrial tachycardia: Intermittent at times in the 120's, Regardless, at this point would not maximiliano with antiarrhythmic therapy. Will start a small dose of bb given adequate HR and more episodes of NSR.
- She is asymptomatic.
TME:
-more aler today identified me and my role, where she is and her birthday knw it was [birth year].
-She is a bit disoriented and at times less responsive. Medications are being adjusted to limit sedating effects. ABG did not reveal significant respiratory acidosis rather an appropriate compensation.
CAD: no chest pain
-99% ostial RCA
-Peak trop this admission was 0.090.
-We may offer attempt at ostial RCA PCI at time of TAVR
-continue asa/statin
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
-treat CHF
Severe Deconditioning
Severe lymphedema and shronic lower extremity wounds---wound care consulted
-great improvement with wraps
IBS with chronic diarrhea
Ascending thoracic aortic dilatation
Moderate mitral regurgitation.
Moderate pulmonary HTN
Hypertension,
Ambulatory dysfunction requiring rolling walker
Morbid obesity, BMI > 45
Long history of lymphedema
Severe orthopedic disease
Outpatient palliative care, last seen 07/[address] Moreno
History of MRSA colonization
Son: Dr. Phoenix Callahan(cardiology) at his phone number [phone].--called no answer
Discharge planning underway
Overall prognosis is poor
Subjective: She is feeling better, breathing is 'not a problem'. She has pain in her legs wihich they were dressing when I arrived. She is still a bit confusion. no further chest discomfort
Data:
R/[facility] 08/11/23: HEMODYNAMIC DATA
AO: 95/67
LV: Not done
PCWP: 31
PA: 65/38
RV: 65/22
RA: 21
Oximetry: Ao 97%, PA 54%, cardiac output 3.3, cardiac index 1.7
CORONARY ANGIOGRAPHY
Dominance: Right
Left Main: Normal
LAD: Normal
Circumflex: Normal
RCA: 99% ostial stenosis. There is sluggish flow into the proximal RCA
Of note, our plan was to perform this procedure from the right radial artery. Access was easily obtained and a 5 Kazakh right radial artery sheath placed. Heparin 6000 units was administered. There was significant innominate tortuosity; however,
we were able to engage the left coronary and perform left coronary angiography in multiple projections. We were unable to access the right coronary artery despite using JR4 and AL-1 diagnostic catheters. A 5 Kazakh DAVIN catheter could not be
advanced through the innominate artery due to spasm and at this point it was clear that we would be unable to access the ascending aorta from the right radial artery approach. A decision was made to access the right femoral artery to complete the
study with right coronary angiography. After easily accessing the right femoral artery using the micropuncture technique, a 5 Kazakh sheath was placed. We were unable to pass a standard J-wire past the proximal external iliac artery. Similarly, a
hydrophilic small J-wire and an angled Glidewire were not not able to be passed into the common iliac. Although right femoral artery sheath pressure was identical to previously recorded aortic pressures, we opted for left femoral artery access as
there was some contrast hanging up on a puff through the RFA sheath consistent with retrograde dissection. A 5 Kazakh LFA sheath was placed easily using a micropuncture technique and a 6 Kazakh sheath placed in the left femoral vein. This allowed
us to perform right heart catheterization, selective right coronary artery angiography and abdominal aortography with bilateral iliofemoral runoff.
Lower extremity angiography: Aortography above the femoral bifurcation was performed at the conclusion of the procedure to assess the right iliofemoral vessels and to assess access for possible TAVR bilaterally. There is no evidence of
atherosclerotic disease in the right common femoral artery and no angiographic evidence of residual dissection in the common femoral artery. Both the right and left femoral artery arteriotomy sites are in the mid common femoral artery. Vessel
diameter estimates by angiography suggest that she will be a candidate for transfemoral TAVR
CONCLUSIONS
1: Borderline systemic blood pressure
2: Markedly elevated left and right heart filling pressures with moderate to severe pulmonary hypertension
3. Low cardiac output state
4. Single-vessel CAD with subtotal occlusion of the ostial RCA
5. No significant atherosclerotic disease of the iliofemoral vessels bilaterally
6. No PCI attempt was contemplated as the patient requested that only a diagnostic study be performed
7. Known severe aortic stenosis (bicuspid valve with mean gradient 56 mmHg) not evaluated invasively
8. She will need continued diuresis and may benefit from a period of inotropic support
9. It is unclear whether she will agree to to have a heart and similarly unclear whether TAVR will improve her prognosis given the evidence of right heart dysfunction by echo and cath
TTE: 08/09/23:
CONCLUSIONS
Moderately reduced left ventricular systolic function. Global hypokinesis.
Left ventricular ejection fraction is 36% by volumetric assessment.
Enlarged right ventricular size with reduced systolic function.
Stage II diastolic dysfunction suggestive of abnormal relaxation and increased
filling pressures
Moderate mitral regurgitation.
Calcified bicuspid aortic valve. Trace aortic regurgitation.
Severe aortic stenosis with peak/mean gradients across the aortic valve are
89/56 mmHg.
Moderate pulmonary hypertension.
Compared to previous echo 11/12/2020, the ejection fraction has decreased from
60-65% to 36%. The right ventricle is dilated and hypokinetic. Moderate
pulmonary hypertension is new.
Physical Exam
Vital Signs/Labs
Vital Signs
Temp Pulse Resp BP Pulse Ox
97.7 F 119 20 101/75 98
08/16/23 07:13 08/16/23 07:10 08/16/23 07:13 08/16/23 07:10 08/16/23 07:13
08/15/23 08/16/23 08/17/23
06:59 06:59 06:59
Actual Weight 97.4 kg 96.1 kg
08/11/23 03:21
08/15/23 09:53
Magnesium 1.6 mg/dl (1.6-2.3) 08/13/23 04:11
Triglycerides 68 mg/dl (10-149) 08/11/23 10:13
LDL Cholesterol, Calc 45 mg/dl 08/11/23 10:13
VLDL Cholesterol, Calc 13 mg/dl (0-30) 08/11/23 10:13
HDL Cholesterol 20 mg/dl 08/11/23 10:13
08/06/23
22:44
Ovu-I-Vcqulsvfvtd Pept
Physical Exam
Constitutional: No acute distress
Cardiovascular: Rhythm & rate is regular, Pedal edema present (1+ in the thighs trace in legs and feet) and Systolic murmur present (2/6 crescendodecrescendo murmur )
Respiratory: Crackles Present (bibasilar) and Other (Poor effort)
Neuro/Psych: AO x 3
Data Reviewed
-
Date of Service: August 16, 2023
EKG: Other (tele as above)
Medical Tests (PFT, Pathology etc): Discussed with Physician (Dr Lee, will order speech and swallow, some atelectasis may be due to extensive deconditioning)
[2023-08-16] MEDS: TOPROL XL 12.5 MG PO (09:46)
[2023-08-16] MEDS: ULTRAM 25 MG PO (09:46)
--- NOTE | 2023-08-16 10:10 | PTCARENOTE ---
Received patient this morning resting in bed, refusing any breakfast and stating she doesn't usually eat breakfast. Seen by wound nurse and wounds assessed and dressings changed, bilateral knee high stephenie wraps reapplied. Patient speaking with the
hospitalist about hospice care. Son now at the bedside, tt to Dr. Bacon if he is able to come back and speak with the patient's son.
--- NOTE | 2023-08-16 11:04 | PTOTSP ---
SPEECH THERAPY SWALLOW FOLLOW-UP:
Patient presents with grossly functional oropharyngeal swallow function at this time. Patient with CXR concerning for pneumonia, possibly aspiration related. Patient with report of altered mental status past 2 days and associated signs of
aspiration; Improved mental status today without signs of aspiration during assessment. Given improved mentation, patient appears safe to continue oral diet at this time. Recommend continue Regular texture diet, thin liquids. Medications whole with
liquid as tolerated. Aspiration precautions including: Assistance/supervision with meals; Upright positioning; Remain upright 30 minutes after eating/drinking; Do not feed when lethargic; Small bites/sips; Slow rate of intake; Intersperse liquids.
D/c oral diet if signs of aspiration or decline in mental or respiratory status.
Speech therapy to follow pending decision on hospice/palliative care, assess diet tolerance and modify as appropriate, monitor CXR and labs, determine indication for instrumental assessment of swallowing if warranted, and provide continued education
regarding aspiration risks/precautions.
RECOMMEND:
1) continue Regular texture diet, thin liquids
2) Medications whole with liquid as tolerated
3) Aspiration precautions including: Assistance/supervision with meals; Upright positioning; Remain upright 30 minutes after eating/drinking; Do not feed when lethargic; Small bites/sips; Slow rate of intake; Intersperse liquids. D/c oral diet if
signs of aspiration or decline in mental or respiratory status
4) Speech therapy to follow pending decision on hospice/palliative care, assess diet tolerance and modify as appropriate, monitor CXR and labs, determine indication for instrumental assessment of swallowing if warranted, and provide continued
education regarding aspiration risks/precautions
--- NOTE | 2023-08-16 11:15 | WOUNDNOTE ---
Beni texted RN Zara Razo and asked RN to give patient an air chair cushion. Zara responded she would.
[2023-08-16] MEDS: LEXAPRO 5 MG PO (11:41)
[2023-08-16 11:55] LABS: % Basophils 0.3 % (0-2); % Eosinophils 3.3 % (0-6); % Immature Granulocytes 0.3 % (0-0.5); % Lymphocytes 12.5 % (20.5-51.1); % Neutrophils 75.6 % (42.2-75.2); Absolute Eosinophils 0.3 10^3/uL (0-0.7); Absolute Lymphocytes 1.1 10^3/uL (1.2-3.4); Absolute Monocytes 0.7 10^3/uL (0.1-0.6); Absolute Neutrophils 6.5 10^3/uL (1.4-6.5); Hemoglobin 10.5 g/dL (12.0-16.0); Mean Corpuscular Hgb 26.1 pg (27.0-31.0); Mean Corpuscular Volume 87.1 fL (81.0-99.0); Mean Platelet Volume 9.5 fL (7.4-10.4); Nucleated Red Blood Cells % 0 %; Platelet Count 251 10^3/uL (130-400); Red Blood Cell Count 4.02 10^6/uL (4.20-5.40); Red Cell Dist. Width 19.8 % (11.5-14.5); White Blood Cell Count 8.7 10^3/uL (4.8-10.8)
[2023-08-16 12:06] LABS: Blood Urea Nitrogen 19 mg/dl (7-17); Calcium 8.6 mg/dl (8.4-10.2); Carbon Dioxide 34 mmol/L (22-30); Chloride 93 mmol/L (98-107); Estimated Creatinine Clearance 64 ml/min; Glucose 136 mg/dl (70-99); Magnesium 1.8 mg/dl (1.6-2.3); Potassium 3.8 mmol/L (3.5-5.1); Sodium 133 mmol/L (135-145); eGFR > 60.00
--- NOTE | 2023-08-16 12:19 | CM ---
Addendum entered by Becki Gupta 08/16/23 13:51:
Spoke with [facility] who states they can accept her for SNF/Rehab. Admission on Wednesday08/17/23.
Original Note:
Reviewed chart. Met with Mrs. Callahan and her son Dr. Callahan to review discharge plans. We reviewed SNF/Rehab. We reviewed SNF/rehabs. She states she is still interested in going to [facility]. Telephone call to [facility] to check on bed availability. Left message. Medical work-up in progress. The discharge plan is to go to [facility] if bed available.
--- NOTE | 2023-08-16 13:04 | CON.PUL ---
Consultation
Consultation Request
Date/Time Consultation Requested: 08/16/23
Date/Time Consultation Performed: 08/16/23
Performing Provider: Veronica
Reason for Consultation: Hypercarbic resp failure
Medical History
-
History of Present Illness:
Patient is a 72 year old F with history of HTN, ambulatory dysfunction, chronic lymphedema presenting from home for progressive SOB and weakness, admitted 08/06/23. It is reported that patient lives at home independently with CARDROOM HAND support from 5p-
8p. She is severely sedentary and stays/sleeps mostly in her recliner on the first floor of her home. She has a history of CHF, severe , with reported noncompliance with Lasix.
She denies history of lung disease in the past, lifelong nonsmoker.
CXR since admission showing pulm edema and cardiomeg. ECHO obtained showing new reduced EF, she is being followed by cards. She is deemed high risk for intervention on her severe .
She demonstrated hypoxemia and chronic hypercarbia on her ABG while inpatient, we are asked to comment on her possible lung disease.
Past Medical History
Past Medical History: Other (see list below)
Social History
Tobacco: Non-smoker
Alcohol: None
Drug: None
Family History
Family History: Reviewed & Not Pertinent
Allergies / Home Medications
Allergies
Allergy/AdvReac Type Severity Reaction Status Date / Time
banana [Banana] Allergy UPSET Verified 06/21/20 08:10
STOMACH
Sulfa (Sulfonamide Allergy RASH, HIVES Verified 06/21/20 08:10
Antibiotics)
DUST Allergy Unknown Uncoded 06/21/20 08:10
POLLEN Allergy Unknown Uncoded 06/21/20 08:10
TREES Allergy Unknown Uncoded 06/21/20 08:10
Home Medications
�Medication �Instructions �Recorded �Confirmed �Last Taken �Type
ferrous sulfate 325 mg (65 mg 325 mg PO QPM Supplement 06/21/20 08/06/23 06/20/20 History
iron) tablet (FeroSul)
gabapentin 300 mg capsule 300 mg PO Q6H Pain 06/21/20 08/06/23 08/06/23 03:00 History
loperamide 2 mg capsule 2 mg PO QIDPRN PRN diarrhea 06/21/20 08/06/23 Unknown History
solifenacin 5 mg tablet 10 mg PO QPM Urinary issue 06/21/20 08/06/23 06/20/20 History
tramadol 50 mg tablet 50 mg PO Q6H Pain #12 tabs 11/14/20 08/06/23 08/06/23 03:00 Rx
acetaminophen 500 mg tablet 500 - 1,000 mg PO Q6H Pain 08/06/23 08/06/23 08/06/23 03:00 History
furosemide 40 mg tablet 40 mg PO DAILY Fluid 08/06/23 08/06/23 2 Weeks Ago History
Retention/Swelling ~07/23/23
omeprazole 20 mg capsule,delayed 20 mg PO DAILY Gastrointestinal 08/06/23 08/06/23 Unknown History
release Issue
valsartan 160 mg tablet 160 mg PO DAILY Blood Pressure 08/06/23 08/06/23 Unknown History
Review of Systems
-
History Source: Patient
All other systems: Negative unless noted
Vitals / Labs / Diagnostic Testing
Vital Signs
Temp Pulse Resp BP Pulse Ox
97.4 F 107 20 108/76 95
08/16/23 11:31 08/16/23 12:00 08/16/23 11:31 08/16/23 10:57 08/16/23 11:31
Lab Data
08/16/23 11:39
08/16/23 11:39
Diagnostic Testing:
Physical Exam
-
HEENT: Normocephalic, Anicteric and Moist Mucous Membranes
Cardiovascular: S1/S2, Regular Rhythm and Peripheral Edema (stephenie wraps bilaterally noted)
Respiratory: Clear and Non-Labored Respirations
GI: Soft, Non Distended and Non Tender
Neurology: Awake, Oriented, No Motor Deficits and Other (profoundly weak appearing, falling asleep during conversation and slow to respond)
Skin: Warm and Dry
General: Comfortable and Other (NAD, chronically ill appearing, morbidly obese)
Assessment
-
Patient is a 72 year old F with history of HTN, ambulatory dysfunction, chronic lymphedema presenting from home for progressive SOB and weakness, adm 08/06/23. CXR since admission showing pulm edema and cardiomeg. ECHO obtained showing new reduced
EF, she is being followed by cards. She is deemed high risk for intervention on her severe . She demonstrated hypoxemia and chronic hypercarbia on her ABG while inpatient, we are asked to comment on her possible lung disease 08/16/23.
Acute on chronic HFrEF
Vascular congestion on CXR/proBNP 20K
RV dysfunction
RHC with PCWP 31 RA 21 PA 65/38 CO 1.7
Severe aortic stenosis
She is not a candidate for high risk intervention /TAVR given co morbidities
CAD, 99% ostial RCA
New 2.3 cm focal opacity in the peripheral right midlung
Chronic hypercarbia/compensated, suspect underlying MARIAH/OHS
Acute hypoxic resp insufficiency, on 2L
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
Severe lymphedema
Chronic lower extremity wounds
IBS with chronic diarrhea
Ascending thoracic aortic dilatation
Moderate mitral regurgitation
Moderate pulmonary HTN
Hypertension
Ambulatory dysfunction
Morbid obesity, BMI 41
Severe orthopedic disease
Outpatient palliative care, last seen 07/[address] Moreno
History of MRSA colonization
Plan
Mild hypoxemia noted on arrival, O2 margie 90%
She is currently maintained on 2L NC, but this could likely be weaned off
No history of O2 use at home
Home O2 eval can be obtained
Prior history of lung disease is not noted -- She denies history of lung disease in the past, lifelong nonsmoker.
CT Chest showing possible atelectasis/opacity noted, she would be considered low risk in terms of cancer
Can repeat imaging again as OP if needed to evaluate opacity
Suspect patient has underlying MARIAH/OHS given her ABG and chronic CO2 retention
She does not feel she has this diagnosis bc she has never been told she snores
She was quite argumentative about this
CXR obtained indicating cardiomeg, pulm edema
ECHO results reviewed with rEF, severe
She is not a candidate for intervention on her valve
Diuresis ongoing per team
Cards following
Consideration for palliative discussions are warranted
Will need outpatient pulmonary evaluation in our office for PFTs and 6MWT
Reviewed with patient
Risk factors assessed for underlying sleep disordered breathing also noted, recommend outpatient PSG/sleep evaluation
She does not seem interested in pursuing, we can leave information in her chart
Weight loss measures recommended
Obesity contributing to respiratory symptoms
We will follow
Diagnostic Data
Chest X-Ray: 08/15/23- 1. Mild interstitial and alveolar cardiogenic pulmonary edema.
2. MODERATE CARDIOMEGALY.
3. New 2.3 cm focal opacity in the peripheral right midlung which could be focal alveolar pulmonary edema, subsegmental atelectasis, or mild pneumonia.
4. Mild elevation of the left hemidiaphragm.
CT Scan: CHEST 06/21/20- No findings to confirm central pulmonary embolism. Small irregular lobulated opacity in the right lower lobe most likely representing focal subsegmental atelectasis or pneumonia. Mass lesion would be less likely. Prominent
pulmonary interstitial markings and minimal groundglass opacity bilaterally, nonspecific, possibly representing some interstitial edema or viral pneumonitis. Mild aneurysmal dilatation of the ascending thoracic aorta at approximately 4.3 cm. Mild
mediastinal lymphadenopathy and small right hilar lymph nodes, indeterminate.
Echo: 08/09/23- Moderately reduced left ventricular systolic function. Global hypokinesis. Left ventricular ejection fraction is 36% by volumetric assessment. Enlarged right ventricular size with reduced systolic function. Stage II diastolic
dysfunction suggestive of abnormal relaxation and increased filling pressures Moderate mitral regurgitation. Calcified bicuspid aortic valve. Trace aortic regurgitation. Severe aortic stenosis with peak/mean gradients across the aortic valve are
89/56 mmHg. Moderate pulmonary hypertension. Compared to previous echo 11/12/2020, the ejection fraction has decreased from 60-65% to 36%. The right ventricle is dilated and hypokinetic. Moderate pulmonary hypertension is new.
PFT's:
Reports and relevant images were personally reviewed.
[2023-08-16] MEDS: LOVENOX 40 MG SC (18:01)
[2023-08-16] MEDS: VESICARE 10 MG PO (18:01)
[2023-08-16] MEDS: LIPITOR 40 MG PO (18:01)
--- NOTE | 2023-08-16 19:10 | PTCARENOTE ---
PT and OT were able to sit the patient at the side of the bed but she was unable to sit up erect without their support. Chair cushion placed on chair, but patient not able to safely transfer oob to chair. Patient will allow up to pull her up in bed
but other than for diaper checks will not allow us to reposition her on her side. Is on a centrella air bed with her legs elevated on pillows.
[2023-08-16] MEDS: SENOKOT PO (21:52)
[2023-08-17] VITALS (9 sets, daily range): BP systolic 84–113; BP diastolic 57–81; BMI 41.3
--- NOTE | 2023-08-17 01:45 | PTCARENOTE ---
Patient AAOx2-3 and forgetful at times. Patient has intermittent episodes of confused conversation and requires reality orientation to place and situation. Tele monitor shows SR w/ 1st AV block and occasional PVCs. Patient had a lg soft BM. Bed bath
completed. Patient yells out at staff when repositioning patient in bed. Educated patient on preventing pressure wounds. B/l leg dressings remain intact, stephenie wraps removed at HS. Call finch in reach.
[2023-08-17] MEDS: NEURONTIN 200 MG PO ×4 (05:27→23:01)
[2023-08-17] MEDS: DESENEX/MITRAZOL/ZEASORB 1 APPLIC TOPICAL ×2 (08:54→19:51)
[2023-08-17] MEDS: PROTONIX 40 MG PO ×2 (08:55→19:50)
[2023-08-17] MEDS: LEXAPRO 5 MG PO (08:55)
[2023-08-17] MEDS: NSS (PRESERVATIVE FREE) 8 ML IV ×2 (08:55→19:50)
[2023-08-17] MEDS: ASPIR LOW (ENTERIC COATED) 81 MG PO (08:55)
[2023-08-17] MEDS: PEPCID 20 MG IV ×2 (08:55→19:50)
[2023-08-17] MEDS: SENOKOT PO (08:56)
--- NOTE | 2023-08-17 09:17 | W.PN.PUL3 ---
Today's Communication / Plan
-
Discussed outpatient sleep work with son, he has declined
Agree with hospice consult, discharge planning pending discussions
I have left referral in chart should they want to contact as OP
We will sign off at this time, please call with questions
Assessment
-
Patient is a 72 year old F with history of HTN, ambulatory dysfunction, chronic lymphedema presenting from home for progressive SOB and weakness, adm 08/06/23. CXR since admission showing pulm edema and cardiomeg. ECHO obtained showing new reduced
EF, she is being followed by cards. She is deemed high risk for intervention on her severe . She demonstrated hypoxemia and chronic hypercarbia on her ABG while inpatient, we are asked to comment on her possible lung disease 08/16/23.
Acute on chronic HFrEF
Vascular congestion on CXR/proBNP 20K
RV dysfunction
RHC with PCWP 31 RA 21 PA 65/38 CO 1.7
Severe aortic stenosis
She is not a candidate for high risk intervention /TAVR given co morbidities
CAD, 99% ostial RCA
New 2.3 cm focal opacity in the peripheral right midlung
Chronic hypercarbia/compensated, suspect underlying MARIAH/OHS
Acute hypoxic resp insufficiency, on 2L
Conditions present [employer]CH[employer]
Severe lymphedema
Chronic lower extremity wounds
IBS with chronic diarrhea
Ascending thoracic aortic dilatation
Moderate mitral regurgitation
Moderate pulmonary HTN
Hypertension
Ambulatory dysfunction
Morbid obesity, BMI 41
Severe orthopedic disease
Outpatient palliative care, last seen 07/[address] Moreno
History of MRSA colonization
Plan
Mild hypoxemia noted on arrival, O2 margie 90%
She is currently maintained on 2L NC, but this could likely be weaned off
No history of O2 use at home
Home O2 eval can be obtained
Prior history of lung disease is not noted -- She denies history of lung disease in the past, lifelong nonsmoker.
CT Chest showing possible atelectasis/opacity noted, she would be considered low risk in terms of cancer
Can repeat imaging again as OP if needed to evaluate opacity
Suspect patient has underlying MARIAH/OHS given her ABG and chronic CO2 retention
She does not feel she has this diagnosis bc she has never been told she snores
She was quite argumentative about this
I discussed this with her son today, he also declined testing
CXR obtained indicating cardiomeg, pulm edema
ECHO results reviewed with rEF, severe
She is not a candidate for intervention on her valve
Diuresis ongoing per team
Cards following
Consideration for palliative discussions are warranted
Hospice consult placed
Outpatient pulmonary evaluation is family desires, we can leave information in her chart
Discharge planning per team pending hospice discussions
Diagnostic Data
Chest X-Ray: 08/15/23- 1. Mild interstitial and alveolar cardiogenic pulmonary edema.
2. MODERATE CARDIOMEGALY.
3. New 2.3 cm focal opacity in the peripheral right midlung which could be focal alveolar pulmonary edema, subsegmental atelectasis, or mild pneumonia.
4. Mild elevation of the left hemidiaphragm.
CT Scan: CHEST 06/21/20- No findings to confirm central pulmonary embolism. Small irregular lobulated opacity in the right lower lobe most likely representing focal subsegmental atelectasis or pneumonia. Mass lesion would be less likely. Prominent
pulmonary interstitial markings and minimal groundglass opacity bilaterally, nonspecific, possibly representing some interstitial edema or viral pneumonitis. Mild aneurysmal dilatation of the ascending thoracic aorta at approximately 4.3 cm. Mild
mediastinal lymphadenopathy and small right hilar lymph nodes, indeterminate.
Echo: 08/09/23- Moderately reduced left ventricular systolic function. Global hypokinesis. Left ventricular ejection fraction is 36% by volumetric assessment. Enlarged right ventricular size with reduced systolic function. Stage II diastolic
dysfunction suggestive of abnormal relaxation and increased filling pressures Moderate mitral regurgitation. Calcified bicuspid aortic valve. Trace aortic regurgitation. Severe aortic stenosis with peak/mean gradients across the aortic valve are
89/56 mmHg. Moderate pulmonary hypertension. Compared to previous echo 11/12/2020, the ejection fraction has decreased from 60-65% to 36%. The right ventricle is dilated and hypokinetic. Moderate pulmonary hypertension is new.
PFT's:
Reports and relevant images were personally reviewed.
Subjective Data
-
Date of Service:
Date of Service: August 17, 2023
Chief Complaint: Pulmonary Follow Up
Subjective:
sleeping, son at bedside
no new events
Objective Data
Data Reviewed
Vital Signs / I&O / Oxygen:
Vital Signs
Temp Pulse Resp BP Pulse Ox
98.2 F 73 16 97/71 98
08/17/23 06:48 08/17/23 08:56 08/17/23 06:48 08/17/23 08:56 08/17/23 06:48
Intake and Output
08/16/23 08/17/23 08/18/23
06:59 06:59 06:59
Intake Total 360 / 360 480 / 480
Output Total 1050 / 1050 600 / 600
Balance -690 / -690 -120 / -120
SaO2 98
Nasal Cannula flow liters per 2
minute
Physical Exam
General: Comfortable, Poor Appetite and Other (NAD)
HEENT: Normocephalic, Anicteric and Moist Mucous Membranes
Cardiovascular: S1-S2, Regular Rhythm and Peripheral Edema
Respiratory: Clear and Non-Labored Respirations
GI: Soft, Non Distended and Non Tender
Neurology: Awake, Oriented (to self/place), Lethargic (but arousable) and Depressed
Skin: Warm and Dry
Labs/Micro/Reports
Lab Data
08/16/23 11:39
08/16/23 11:39
--- NOTE | 2023-08-17 10:18 | W.PN.CD ---
Today's Communication / Plan
-
assess to resume lasix PO tomorrow, perhaps at lower dose 20mg daily
move Metoprolol Succinate 12.5mg daily to noon (BP seems best mid day), hold for SBP <90
valsartan stopped for low BP
discussed with son at bedside
discussed with hospitalist
Impression / Plan
-
BACKGROUND: 72F who presented with weakness and shortness of breath.
HFrEF, acute on chronic
-Presented with SOB, vascular congestion on CXR, & proBNP 20K
-LVEF 60-65% in Sep, 2019, now EF 36%, RV mildly dilated and hypokinetic
-RHC with PCWP 31 RA 21 PA 65/38 CO 1.7 (wt 104.1 kg, but wts have been unreliable as using a bed scale).
-Diuresis has been impressive. Wt has dropped from 109kg to 96 kg
-Lasix held in setting of metabolic alkalosis, trend BMP
-assess to resume lasix PO tomorrow, perhaps at lower dose 20mg daily
-GDMT limited by hypotension
-BB: will trial a small dose of bb today as in and out of AT and some BP allowance--move Metoprolol Succinate 12.5mg daily to noon (BP seems best mid day), hold for SBP <90
-PITO/ARB: typically on Valsartan 160mg, but stopped due to hypotension
-SGLT2: Case management to anthony
-MRA: She presented with hyperkalemia
Hypoxia: Patient's son at the bedside 08/14/23 noticed an episode of hypoxia down to 88% with a good Pleth. He reports Ike-Nicole breathing pattern.
-ABG done 08/15/23shows some hypoxia with a gradient. I suspect some of this due to atelectasis given she is basically bedbound and morbidly obese. However, with her altered mental status aspiration is a good consideration.
- improved
Aortic stenosis, bicuspid, severe
-Peak/mean gradients 89/56 mmHg
-LVOT 2.0cm, KORI 0.44 with trace appreciate structural team consult, case to be discussed 08/13/23 meeting.
-discussed at Valve Multidisciplinary meeting 08/13/23. She is not a candidate for high risk intervention given co morbidities, essentially bedbound status, it was felt the risk was >>>> than any potential benefit.
-we are discussing palliation and hospice referral,
-I did offer to make her cath data available to any center if she wishes to pursue a second opinion.
Atrial tachycardia: Intermittent at times in the 120's, Regardless, at this point would not maximiliano with antiarrhythmic therapy. Will start a small dose of bb given adequate HR and more episodes of NSR.
- She is asymptomatic.
TME: improved
-She is a bit disoriented and at times less responsive. Medications are being adjusted to limit sedating effects. ABG did not reveal significant respiratory acidosis rather an appropriate compensation.
CAD: no chest pain
-99% ostial RCA
-Peak trop this admission was 0.090.
-med mgmt
-continue asa/statin
Myocardial injury secondary to CAD, acute CHF and severe valvulopathy:
-treat CHF
Severe Deconditioning
Severe lymphedema and chronic lower extremity wounds---wound care consulted
-great improvement with wraps
IBS with chronic diarrhea
Ascending thoracic aortic dilatation
Moderate mitral regurgitation.
Moderate pulmonary HTN
Hypertension,
Ambulatory dysfunction requiring rolling walker
Morbid obesity, BMI > 45
Long history of lymphedema
Severe orthopedic disease
Outpatient palliative care, last seen 07/[address] Moreno
History of MRSA colonization
Son: Phoenix Pereze(cardiology) at his phone number [phone].
Discharge planning underway
Overall prognosis is poor
Subjective:
She reports she feels 'OK'
Data:
R/[facility] 08/11/23: HEMODYNAMIC DATA
AO: 95/67
LV: Not done
PCWP: 31
PA: 65/38
RV: 65/22
RA: 21
Oximetry: Ao 97%, PA 54%, cardiac output 3.3, cardiac index 1.7
CORONARY ANGIOGRAPHY
Dominance: Right
Left Main: Normal
LAD: Normal
Circumflex: Normal
RCA: 99% ostial stenosis. There is sluggish flow into the proximal RCA
Of note, our plan was to perform this procedure from the right radial artery. Access was easily obtained and a 5 Polish right radial artery sheath placed. Heparin 6000 units was administered. There was significant innominate tortuosity; however,
we were able to engage the left coronary and perform left coronary angiography in multiple projections. We were unable to access the right coronary artery despite using JR4 and AL-1 diagnostic catheters. A 5 Polish DAVIN catheter could not be
advanced through the innominate artery due to spasm and at this point it was clear that we would be unable to access the ascending aorta from the right radial artery approach. A decision was made to access the right femoral artery to complete the
study with right coronary angiography. After easily accessing the right femoral artery using the micropuncture technique, a 5 Polish sheath was placed. We were unable to pass a standard J-wire past the proximal external iliac artery. Similarly, a
hydrophilic small J-wire and an angled Glidewire were not not able to be passed into the common iliac. Although right femoral artery sheath pressure was identical to previously recorded aortic pressures, we opted for left femoral artery access as
there was some contrast hanging up on a puff through the RFA sheath consistent with retrograde dissection. A 5 Polish LFA sheath was placed easily using a micropuncture technique and a 6 Polish sheath placed in the left femoral vein. This allowed
us to perform right heart catheterization, selective right coronary artery angiography and abdominal aortography with bilateral iliofemoral runoff.
Lower extremity angiography: Aortography above the femoral bifurcation was performed at the conclusion of the procedure to assess the right iliofemoral vessels and to assess access for possible TAVR bilaterally. There is no evidence of
atherosclerotic disease in the right common femoral artery and no angiographic evidence of residual dissection in the common femoral artery. Both the right and left femoral artery arteriotomy sites are in the mid common femoral artery. Vessel
diameter estimates by angiography suggest that she will be a candidate for transfemoral TAVR
CONCLUSIONS
1: Borderline systemic blood pressure
2: Markedly elevated left and right heart filling pressures with moderate to severe pulmonary hypertension
3. Low cardiac output state
4. Single-vessel CAD with subtotal occlusion of the ostial RCA
5. No significant atherosclerotic disease of the iliofemoral vessels bilaterally
6. No PCI attempt was contemplated as the patient requested that only a diagnostic study be performed
7. Known severe aortic stenosis (bicuspid valve with mean gradient 56 mmHg) not evaluated invasively
8. She will need continued diuresis and may benefit from a period of inotropic support
9. It is unclear whether she will agree to to have a heart and similarly unclear whether TAVR will improve her prognosis given the evidence of right heart dysfunction by echo and cath
TTE: 08/09/23:
CONCLUSIONS
Moderately reduced left ventricular systolic function. Global hypokinesis.
Left ventricular ejection fraction is 36% by volumetric assessment.
Enlarged right ventricular size with reduced systolic function.
Stage II diastolic dysfunction suggestive of abnormal relaxation and increased
filling pressures
Moderate mitral regurgitation.
Calcified bicuspid aortic valve. Trace aortic regurgitation.
Severe aortic stenosis with peak/mean gradients across the aortic valve are
89/56 mmHg.
Moderate pulmonary hypertension.
Compared to previous echo 11/12/2020, the ejection fraction has decreased from
60-65% to 36%. The right ventricle is dilated and hypokinetic. Moderate
pulmonary hypertension is new.
Physical Exam
Vital Signs/Labs
Vital Signs
Temp Pulse Resp BP Pulse Ox
98.2 F 73 16 97/71 98
08/17/23 06:48 08/17/23 08:56 08/17/23 06:48 08/17/23 08:56 04/09/24 06:48
08/16/23 08/17/23 08/18/23
06:59 06:59 06:59
Actual Weight 96.1 kg 95.9 kg
08/16/23 11:39
08/16/23 11:39
Magnesium 1.8 mg/dl (1.6-2.3) 08/16/23 11:39
Triglycerides 68 mg/dl (10-149) 08/11/23 10:13
LDL Cholesterol, Calc 45 mg/dl 08/11/23 10:13
VLDL Cholesterol, Calc 13 mg/dl (0-30) 08/11/23 10:13
HDL Cholesterol 20 mg/dl 08/11/23 10:13
08/06/23
22:44
Lbr-T-Zmkagikorlb Pept
Physical Exam
Constitutional: Comfortable
EENT: Moist mucous membranes
Cardiovascular: Rhythm & rate is regular, Pedal edema present (legs wrapped), JVD present and Systolic murmur present
Respiratory: Respiratory effort normal and Crackles Present (at bases)
GI: Soft
Neuro/Psych: Other (lethargic)
Data Reviewed
-
Date of Service: August 17, 2023
EKG: Other (Tele: sinus 60s, with paroxysmal atrial tachycardia)
Labs: Labs Reviewed by me
--- NOTE | 2023-08-17 12:04 | CM ---
Addendum entered by Becki Gupta 08/17/23 16:24:
Son toured [facility] and he does not think it is a good fit. He would like referrals to made to [facility] and [facility]. Referral sent. He also talking about her going home on Palliative Care or Hospice. He is aware he will need
24 hour care with two people assistance. Await SNF/Rehab if bed available and family decision regarding SNF versus home with 24 hour care givers and Palliative Care or Hospice.
Original Note:
Reviewed chart. Met with Mrs. Callahan and her son to review discharge plans. Reviewed bed available at [facility]. Can accept today if medically stable. Not ready for transfer today. Son also requested to met with Hospice. [facility].
Hospice to meet with his this a.m. to review hospice program. Son is planning on touring [facility] today. Medical work-up in progress. The discharge plan is to go to [facility] when medically stable.
[2023-08-17] MEDS: TOPROL XL 12.5 MG PO (12:28)
--- NOTE | 2023-08-17 12:32 | HOSPNOTE ---
Met with patient and son to discuss goals of care and hospice services. The son would like patient to try rehab at [place] and then stay for buttermaker care. The patient is leaning toward hospice she stated she is getting tired, again the son wants
patient to at least try rehab. Long time spent with patient and son. Updated nurse and case management.
--- NOTE | 2023-08-17 14:30 | WOUNDNOTE ---
WOC RN NOTE: Received new consult for patient today. Patient already had previous consult and was last seen by WOC RN on 08/15. Patient is deciding between hospice and SNF. Discharge plan is up to date. RN and hospitalist made aware that discharge and
care plan are up to date. Per hospitalist plan is for possible d/c on . Will continue to follow as needed.
--- NOTE | 2023-08-17 15:50 | W.PN.HOSP.TC ---
Today's Communication/Plan
-
Lasix still on hold
Timing of Metoprolol adjusted to be given at noon
Possible discharge
Morning labs, daily weights, I's and O's
Assessment / Plan
Assessment / Plan
Physical Exam
General: Not in acute distress
HEENT: Normocephalic, Anicteric and Moist mucous membranes
Respiratory: Some crackles bilaterally
Cardiac: S1/S2, Regular Rhythm, Tachycardia and Murmur (Loud ejection systolic mm at LUSB )
GI: Soft, Non Tender, Non Distended and Normal Bowel Sounds
Musculoskeletal: Edema, Left Lower Extremity (massive ), Edema, Right Lower Extremity (massive ) and Other (both legs are wrapped )
Neuro: Sleepy
Psych: Calm
Assessment/Plan
72-year-old female with severe aortic stenosis CHF and fluid overload underwent TAVR evaluation and considered too high risk based on poor performance status(very obese and lymphedema issues with secondary status) cardiology medical service have
suggested palliative care and hospice facility as doubt she can function at home son who is an customer order clerk down at [employer] in [place] coming in to see to try and convince/also trying to convince to go on antidepressants as a significant
factor/code status was changed to DNR while here/increasing confusion and ABG showed mixed metabolic alkalosis and respiratory acidosis gabapentin reduced
Spoke to patient's son who mentioned patient's usual sleep time is ~3 am to ~10 am which could be the reason for confusion.
Progressive Dyspnea
Presentation with Increasing Generalized Weakness and Leg Swelling
Acute on Chronic HFpEF -- likely related to patient's severe aortic stenosis
Non compliance with Lasix (for the past 2 to 3 weeks prior to presentation) due to the fact that it's hard for her to get and go to the bathroom
Lives independently at home but spends most of her time on recliner
- CXR as per radiologist's report showed 'Mild pulmonary vascular congestion. Left midlung atelectasis. Cardiomegaly.'
- proBNP was on presentation
- Lasix being held at this time due to metabolic alkalosis -- consider resuming at a lower dose of 20 mg daily starting tomorrow
- Daily Is and Os
- Consider SGLT2 inhibitor
- Cardiology consulted and based on risks benefits and poor performance status decision patient is not an interventional candidate
- It has been explained that palliation may be the only choice at this point/again had long discussion and both cardiology and the medical service now recommending palliation care and a outpatient hospice facility strongly recommended and patient is
considering this seriously
Episodes of Atrial tachycardia
-Trial of low dose beta cornell
-Due to hypotension, move Metoprolol Succinate 12.5 mg daily to noon (BP seems best mid day), hold parameters for SBP <90 mmHg
Prolonged QTc
-QTc 491 on August 17, 2023
-Monitor QTc
-Patient is on Lexapro
Volume overload ; chronic with acute element due to non compliance with Lasix
Chronic Lymphedema of both legs
- PO fluid restriction
- Hold amlodipine for now.
- Has lost a total of almost 30 lbs of weight since arrival
- Hold Lasix given patient's fluid weight loss already and metabolic alkalosis -- but consideration for resuming soon
Hyperkalemia
- Continue to hold Valsartan in the setting of hypotension as well
- f/u K in response to diuresis
Elevated TPNI - Non-NH Troponin Elevation due to acute HF
No CP
- Trending troponins -- although elevated, they showed an unremarkable trend
Severe Aortic Stenosis
History of bicuspid aortic valve
Patient denies lightheadedness / dizziness.
-Repeat 2D echocardiogram reviewed and compared to 2019 noting diminished EF now down to 35% from 65%/severe aortic stenosis/increased pulmonary hypertension and RV dilatation
-LVOT 2.0 cm/KORI of 0.44/
-Left heart cath noted 99% ostial RCA lesion patient refused PCI/
-GDMT/not ideal to pursue aggressively given BP constraints/valsartan was resumed but now on hold due to BP
-Cardiology in the medical service after obtaining opinion from the [place] surgery service in regards to viability for TAVR found to have prohibitive risk benefit ratio for any thoughts of intervention/pulm services opinion now is palliation and
transition to hospice care which she is considering
Essential Hypertension
Hypotension
- Held amlodipine as noted above as this can worsen edema.
- Held valsartan due to hyperkalemia
- Observe BP
Chronic ambulatory dysfunction: multifactorial origins
mostly in recliner but walk short distance to BR
Multifactorial gait dysfunction
History of fall with persistent neck pain
History of Rhabdomyolysis
DJD, Morbid obesity
- s/p bilateral TKA.
- Has chronic L hip pain
- Pain control
-Patient remains very sedentary and even resistant to changes in bed position at times.
History of GERD
History of Irritable Bowel Syndrome
History of Crohn's Disease?
Morbid Obesity due to calorie excess
- Ability to exercise is significantly impaired by gait dysfunction, DJD, etc.
Long history of wounds
- Continue wound care
History of MRSA colonization
History of Urinary Tract Infection
Depression and anxiety
-By history and discussion of the family not been treated
-She herself has been resistant to therapy
-May have related to family members that she wanted to
-She was seen and evaluated by psychiatry here no evidence of any active depression or suicidal ideation/seemingly appropriate for decision-making also
-She continues to be steadfast in refusing intervention for her severe aortic stenosis
-She remains having a lot of frustrations in relation to her family issues especially with her brother and son want her to pursue intervention for her valve which she is resistant to since 'it is not bothering me'
-Discussed with patient's son -- who requested that Lexapro 5 mg be started -- started the Lexapro
DVT Prophylaxis: Lovenox
Code Status: DNR/DNI
On August 16, 2023, I spoke to patient's son Dr. Callahan. All questions and concerns were answered to satisfaction.
Anticipated Discharge: 24 - 48 hours
Subjective/Interval History
-
Date of Service: August 17, 2023
Patient was seen and examined. She appeared to be sleeping comfortably. Some confusion and disorientation overnight.
Objective Data
-
Labs:
Laboratory Results
08/17/23
19:30
Sodium Pending
Potassium Pending
Chloride Pending
Carbon Dioxide Pending
BUN Pending
Creatinine Pending
Glucose Pending
Calcium Pending
Vital Signs:
Vital Signs
Temp Pulse Resp BP Pulse Ox
98.1 F 94 20 97/73 86
08/17/23 11:00 08/17/23 15:28 08/17/23 11:00 08/17/23 15:28 08/17/23 15:28
I&O
08/16/23 08/17/23 08/18/23
06:59 06:59 06:59
Intake Total 360 / 360 480 / 480 240 / 240
Output Total 1050 / 1050 600 / 600
Balance -690 / -690 -120 / -120 240 / 240
[2023-08-17] MEDS: VESICARE 10 MG PO (18:04)
[2023-08-17] MEDS: LOVENOX 40 MG SC (18:04)
[2023-08-17] MEDS: LIPITOR 40 MG PO (18:04)
[2023-08-17] MEDS: SENOKOT 8.59999999999999964 MG PO (19:51)
[2023-08-17 20:09] LABS: Blood Urea Nitrogen 20 mg/dl (7-17); Calcium 8.9 mg/dl (8.4-10.2); Chloride 91 mmol/L (98-107); Estimated Creatinine Clearance 57 ml/min; Glucose 125 mg/dl (70-99); Sodium 134 mmol/L (135-145); eGFR > 60.00
[2023-08-17 20:31] LABS: Carbon Dioxide 37 mmol/L (22-30)
[2023-08-18] VITALS (12 sets, daily range): BP systolic 84–126; BP diastolic 56–82; PULSE 68; O2SAT 97; BMI 41.0; BMI 41.1; BMI 41.4
[2023-08-18 03:38] LABS: Hematocrit 32.8 % (37.0-47.0); Hemoglobin 9.9 g/dL (12.0-16.0); Mean Corp Hgb Conc. 30.2 g/dL (33.0-37.0); Mean Corpuscular Volume 86.1 fL (81.0-99.0); Mean Platelet Volume 10.5 fL (7.4-10.4); Platelet Count 334 10^3/uL (130-400); Red Blood Cell Count 3.81 10^6/uL (4.20-5.40); Red Cell Dist. Width 19.8 % (11.5-14.5)
[2023-08-18 03:55] LABS: Blood Urea Nitrogen 22 mg/dl (7-17); Calcium 8.5 mg/dl (8.4-10.2); Carbon Dioxide 34 mmol/L (22-30); Chloride 96 mmol/L (98-107); Estimated Creatinine Clearance 64 ml/min; Glucose 107 mg/dl (70-99); Magnesium 1.8 mg/dl (1.6-2.3); Sodium 133 mmol/L (135-145); eGFR > 60.00
[2023-08-18] MEDS: NEURONTIN 200 MG PO ×4 (05:26→23:11)
--- NOTE | 2023-08-18 08:10 | W.PN.CD ---
Today's Communication / Plan
-
Continue bb
reassess for lasix in pm when awake and after bb
discharge planning
Impression / Plan
-
BACKGROUND: 72F who presented with weakness and shortness of breath.
HFrEF, acute on chronic
-Presented with SOB, vascular congestion on CXR, & proBNP 20K
-LVEF 60-65% in Sep, 2019, now EF 36%, RV mildly dilated and hypokinetic
-RHC with PCWP 31 RA 21 PA 65/38 CO 1.7 (wt 104.1 kg, but wts have been unreliable as using a bed scale).
-Diuresis has been impressive. Wt has dropped from 109kg to 96 kg
-Lasix held in setting of metabolic alkalosis, trend BMP
-weight still stable on no Lasix, she is not getting out of the bed, will re-assess after her metoprolol dose to see if it is time to resume lasix 20mg daily
-GDMT limited by hypotension
-BB: will trial a small dose of bb today as in and out of AT and some BP allowance--move Metoprolol Succinate 12.5mg daily to noon (BP seems best mid day), Now in NSR at 60-70 with pvcs
-PITO/ARB: typically on Valsartan 160mg, but stopped due to hypotension
-SGLT2: Case management to anthony
-MRA: She presented with hyperkalemia
Hypoxia: Patient's son at the bedside 08/14/23 noticed an episode of hypoxia down to 88% with a good Pleth. He reports Ike-Nicole breathing pattern.
-ABG done 08/15/23shows some hypoxia with a gradient. I suspect some of this due to atelectasis given she is basically bedbound and morbidly obese. However, with her altered mental status aspiration is a good consideration.
- improved
Aortic stenosis, bicuspid, severe
-Peak/mean gradients 89/56 mmHg
-LVOT 2.0cm, KORI 0.44 with trace appreciate structural team consult, case to be discussed 08/13/23 meeting.
-discussed at Valve Multidisciplinary meeting 08/13/23. She is not a candidate for high risk intervention given co morbidities, essentially bedbound status, it was felt the risk was >>>> than any potential benefit.
-we are discussing palliation and hospice referral,
-I did offer to make her cath data available to any center if she wishes to pursue a second opinion.
Atrial tachycardia: Intermittent at times in the 120's, last night in 100-110's for 5 hours.
-Regardless, at this point would not maximiliano with antiarrhythmic therapy. Continue bb.
- She is asymptomatic.
TME: improved
-She is a bit disoriented and at times less responsive. Medications are being adjusted to limit sedating effects. ABG did not reveal significant respiratory acidosis rather an appropriate compensation.
CAD: no chest pain
-99% ostial RCA
-Peak trop this admission was 0.090.
-med mgmt
-continue asa/statin
Myocardial injury secondary to CAD, acute CHF and severe valvulopathy:
-treat CHF
Severe Deconditioning
Severe lymphedema and chronic lower extremity wounds---wound care consulted
-great improvement with wraps
IBS with chronic diarrhea
Ascending thoracic aortic dilatation
Moderate mitral regurgitation.
Moderate pulmonary HTN
Hypertension,
Ambulatory dysfunction requiring rolling walker
Morbid obesity, BMI > 45
Long history of lymphedema
Severe orthopedic disease
Outpatient palliative care, last seen 07/[address] Moreno
History of MRSA colonization
Son: Dr. Phoenix Callahan(cardiology) at his phone number [phone].
Discharge planning underway
Overall prognosis is poor
Subjective:
She is sleeping, but wakes, still 'early for her'. Will reassess when waking.
Data:
R/LHC 08/11/23: HEMODYNAMIC DATA
AO: 95/67
LV: Not done
PCWP: 31
PA: 65/38
RV: 65/22
RA: 21
Oximetry: Ao 97%, PA 54%, cardiac output 3.3, cardiac index 1.7
CORONARY ANGIOGRAPHY
Dominance: Right
Left Main: Normal
LAD: Normal
Circumflex: Normal
RCA: 99% ostial stenosis. There is sluggish flow into the proximal RCA
Of note, our plan was to perform this procedure from the right radial artery. Access was easily obtained and a 5 English right radial artery sheath placed. Heparin 6000 units was administered. There was significant innominate tortuosity; however,
we were able to engage the left coronary and perform left coronary angiography in multiple projections. We were unable to access the right coronary artery despite using JR4 and AL-1 diagnostic catheters. A 5 English DAVIN catheter could not be
advanced through the innominate artery due to spasm and at this point it was clear that we would be unable to access the ascending aorta from the right radial artery approach. A decision was made to access the right femoral artery to complete the
study with right coronary angiography. After easily accessing the right femoral artery using the micropuncture technique, a 5 English sheath was placed. We were unable to pass a standard J-wire past the proximal external iliac artery. Similarly, a
hydrophilic small J-wire and an angled Glidewire were not not able to be passed into the common iliac. Although right femoral artery sheath pressure was identical to previously recorded aortic pressures, we opted for left femoral artery access as
there was some contrast hanging up on a puff through the RFA sheath consistent with retrograde dissection. A 5 English LFA sheath was placed easily using a micropuncture technique and a 6 English sheath placed in the left femoral vein. This allowed
us to perform right heart catheterization, selective right coronary artery angiography and abdominal aortography with bilateral iliofemoral runoff.
Lower extremity angiography: Aortography above the femoral bifurcation was performed at the conclusion of the procedure to assess the right iliofemoral vessels and to assess access for possible TAVR bilaterally. There is no evidence of
atherosclerotic disease in the right common femoral artery and no angiographic evidence of residual dissection in the common femoral artery. Both the right and left femoral artery arteriotomy sites are in the mid common femoral artery. Vessel
diameter estimates by angiography suggest that she will be a candidate for transfemoral TAVR
CONCLUSIONS
1: Borderline systemic blood pressure
2: Markedly elevated left and right heart filling pressures with moderate to severe pulmonary hypertension
3. Low cardiac output state
4. Single-vessel CAD with subtotal occlusion of the ostial RCA
5. No significant atherosclerotic disease of the iliofemoral vessels bilaterally
6. No PCI attempt was contemplated as the patient requested that only a diagnostic study be performed
7. Known severe aortic stenosis (bicuspid valve with mean gradient 56 mmHg) not evaluated invasively
8. She will need continued diuresis and may benefit from a period of inotropic support
9. It is unclear whether she will agree to to have a heart and similarly unclear whether TAVR will improve her prognosis given the evidence of right heart dysfunction by echo and cath
TTE: 08/09/23:
CONCLUSIONS
Moderately reduced left ventricular systolic function. Global hypokinesis.
Left ventricular ejection fraction is 36% by volumetric assessment.
Enlarged right ventricular size with reduced systolic function.
Stage II diastolic dysfunction suggestive of abnormal relaxation and increased
filling pressures
Moderate mitral regurgitation.
Calcified bicuspid aortic valve. Trace aortic regurgitation.
Severe aortic stenosis with peak/mean gradients across the aortic valve are
89/56 mmHg.
Moderate pulmonary hypertension.
Compared to previous echo 11/12/2020, the ejection fraction has decreased from
60-65% to 36%. The right ventricle is dilated and hypokinetic. Moderate
pulmonary hypertension is new.
Physical Exam
Vital Signs/Labs
Vital Signs
Temp Pulse Resp BP Pulse Ox
97.5 F 67 18 92/69 96
08/18/23 03:00 08/18/23 03:21 08/17/23 22:53 08/18/23 03:21 08/18/23 01:51
08/17/23 08/18/23 08/19/23
06:59 06:59 06:59
Actual Weight 95.9 kg 95.2 kg
08/18/23 03:25
08/18/23 03:25
Magnesium 1.8 mg/dl (1.6-2.3) 08/18/23 03:25
Triglycerides 68 mg/dl (10-149) 08/11/23 10:13
LDL Cholesterol, Calc 45 mg/dl 08/11/23 10:13
VLDL Cholesterol, Calc 13 mg/dl (0-30) 08/11/23 10:13
HDL Cholesterol 20 mg/dl 08/11/23 10:13
08/06/23
22:44
Hzo-S-Ytiaziwjwev Pept
Physical Exam
Constitutional: No acute distress
Cardiovascular: Rhythm & rate is regular, Pedal edema is absent, JVD pressure is normal and Systolic murmur present (crescendo decrescendo in the RUSB)
Respiratory: Respiratory effort normal, Wheeze Absent, Rhonchi Absent and Crackles Present (bibasilar )
Neuro/Psych: AO x 3
Data Reviewed
-
Date of Service: August 18, 2023
EKG: Other (tele nsr with pvcs, st over 9[m to 2 am)
[2023-08-18] MEDS: PEPCID 20 MG IV ×2 (09:23→20:23)
[2023-08-18] MEDS: NSS (PRESERVATIVE FREE) 8 ML IV ×2 (09:23→20:23)
[2023-08-18] MEDS: PROTONIX 40 MG PO ×2 (09:32→20:22)
[2023-08-18] MEDS: SENOKOT 8.59999999999999964 MG PO ×2 (09:33→20:23)
[2023-08-18] MEDS: LEXAPRO 5 MG PO (09:33)
[2023-08-18] MEDS: DESENEX/MITRAZOL/ZEASORB 1 APPLIC TOPICAL ×2 (09:33→20:25)
[2023-08-18] MEDS: ASPIR LOW (ENTERIC COATED) 81 MG PO (09:33)
--- NOTE | 2023-08-18 12:25 | HOSPNOTE ---
Met with patient and son and his spouse again today. The new plan is for the patient to be discharged home on hospice as long as [address] Son is calling 3 agencies to aquire care. If the family is unable to aquire care then the
patient will need placement in a SNF with hospice. Referrals sent to [facility]. Will await the plan so we can discharge patient and sign onto hospice services.
--- NOTE | 2023-08-18 12:30 | CM ---
Reviewed chart. Met with Mrs. Callahan and her family to review discharge plans. Reviewed with him [facility] Admission will need an application before they can determine if they will have a bed. Gave him the [facility] Application. Telephone
call to [facility] Admission who states they do not have a bed but will also need a LTC Application. Family states they are leaning toward her going home with 24 hour caregivers and [facility]. Referral sent to [facility]. Family is
working on getting 24 hour care. [facility] to work on getting medical equipment to the home. Will need ambulance and Out of hospital DNR signed. Medical work-up in progress. The discharge plan is to return home with 24 hour care givers and [facility]
when medically stable.
[2023-08-18] MEDS: TOPROL XL 12.5 MG PO (13:25)
--- NOTE | 2023-08-18 13:39 | W.PN.HOSP.TC ---
Today's Communication/Plan
-
Placement pending
Monitor blood pressures, daily weights, I's and O's, respiratory and fluid status
Assessment / Plan
Assessment / Plan
Physical Exam
General: Not in acute distress
HEENT: Normocephalic, Anicteric and Moist mucous membranes
Respiratory: Some crackles bilaterally
Cardiac: S1/S2, Regular Rhythm, Tachycardia and Murmur (Loud ejection systolic mm at LUSB )
GI: Soft, Non Tender, Non Distended and Normal Bowel Sounds
Musculoskeletal: Edema, Left Lower Extremity (massive ), Edema, Right Lower Extremity (massive ) and Other (both legs are wrapped )
Neuro: Sleepy
Psych: Calm
Assessment/Plan
72-year-old female with severe aortic stenosis CHF and fluid overload underwent TAVR evaluation and considered too high risk based on poor performance status(very obese and lymphedema issues with secondary status) cardiology medical service have
suggested palliative care and hospice facility as doubt she can function at home son who is an manpower development advisor down at [employer] in [place] coming in to see to try and convince/also trying to convince to go on antidepressants as a significant
factor/code status was changed to DNR while here/increasing confusion and ABG showed mixed metabolic alkalosis and respiratory acidosis gabapentin reduced
Spoke to patient's son who mentioned patient's usual sleep time is ~3 am to ~10 am which could be the reason for confusion.
Progressive Dyspnea
Presentation with Increasing Generalized Weakness and Leg Swelling
Acute on Chronic HFpEF -- likely related to patient's severe aortic stenosis
Non compliance with Lasix (for the past 2 to 3 weeks prior to presentation) due to the fact that it's hard for her to get and go to the bathroom
Lives independently at home but spends most of her time on recliner
- CXR as per radiologist's report showed 'Mild pulmonary vascular congestion. Left midlung atelectasis. Cardiomegaly.'
- proBNP was 53018 on presentation
- Lasix being held at this time due to metabolic alkalosis -- consider resuming at a lower dose of 20 mg daily starting soon depending on blood pressure -- weight stable/okay -- discussed with cardiology
- Daily Is and Os
- Consider SGLT2 inhibitor
- Cardiology consulted and based on risks benefits and poor performance status decision patient is not an interventional candidate
- It has been explained that palliation may be the only choice at this point/again had long discussion and both cardiology and the medical service now recommending palliation care and a outpatient hospice facility strongly recommended and patient is
considering this seriously
Episodes of Atrial tachycardia
-Trial of low dose beta cornell
-Due to hypotension, Metoprolol Succinate 12.5 mg daily was previously moved to noon (BP seems best mid day), hold parameters for SBP <90 mmHg
Prolonged QTc
-QTc 491 on August 17, 2023 --> improved
-Monitor QTc
-Patient is on Lexapro
Volume overload ; chronic with acute element due to non compliance with Lasix
Chronic Lymphedema of both legs
- PO fluid restriction
- Hold amlodipine for now.
- Has lost a total of ~30 lbs of weight since arrival
- Hold Lasix given patient's fluid weight loss already and metabolic alkalosis -- but consideration for resuming soon -- please see above
Hyperkalemia
- Continue to hold Valsartan in the setting of hypotension as well
- Follow-up potassium in response to diuresis
Elevated TPNI - Non-IN Troponin Elevation due to acute HF
No CP
- Trending troponins -- although elevated, they showed an unremarkable trend
Severe Aortic Stenosis
History of bicuspid aortic valve
Patient denies lightheadedness / dizziness.
-Repeat 2D echocardiogram reviewed and compared to 2019 noting diminished EF now down to 35% from 65%/severe aortic stenosis/increased pulmonary hypertension and RV dilatation
-LVOT 2.0 cm/KORI of 0.44/
-Left heart cath noted 99% ostial RCA lesion patient refused PCI/
-GDMT/not ideal to pursue aggressively given BP constraints/valsartan was resumed but now on hold due to BP
-Cardiology in the medical service after obtaining opinion from the CT surgery service in regards to viability for TAVR found to have prohibitive risk benefit ratio for any thoughts of intervention/pulm services opinion now is palliation and
transition to hospice care which she is considering
Essential Hypertension
Hypotension
- Held amlodipine as noted above as this can worsen edema.
- Held valsartan due to hyperkalemia
- Monitor blood pressure
Chronic ambulatory dysfunction: multifactorial origins
mostly in recliner but walk short distance to BR
Multifactorial gait dysfunction
History of fall with persistent neck pain
History of Rhabdomyolysis
DJD, Morbid obesity
- s/p bilateral TKA.
- Has chronic left hip pain
- Pain control
- Patient remains very sedentary and even resistant to changes in bed position at times.
History of GERD
History of Irritable Bowel Syndrome
History of Crohn's Disease?
Morbid Obesity due to calorie excess
- Ability to exercise is significantly impaired by gait dysfunction, DJD, etc.
Long history of wounds
- Continue wound care
History of MRSA colonization
History of Urinary Tract Infection
Depression and anxiety
-By history and discussion of the family not been treated
-She herself has been resistant to therapy
-May have related to family members that she wanted to
-She was seen and evaluated by psychiatry here no evidence of any active depression or suicidal ideation/seemingly appropriate for decision-making also
-She continues to be steadfast in refusing intervention for her severe aortic stenosis
-She remains having a lot of frustrations in relation to her family issues especially with her brother and son want her to pursue intervention for her valve which she is resistant to since 'it is not bothering me'
-Discussed with patient's son -- who requested that Lexapro 5 mg be started -- started the Lexapro
DVT Prophylaxis: Lovenox
Code Status: DNR/DNI
On August 16, 2023, I spoke to patient's son [place]. All questions and concerns were answered to satisfaction.
On August 18, 2023, I spoke to patient's son Iwona Callahan, and Dr. Callahan's . All questions and concerns were answered to satisfaction.
Anticipated Discharge: 24 - 48 hours
Subjective/Interval History
-
Date of Service: August 18, 2023
Patient was seen and examined. She denied any new, significant complaints -- now new significant chest pain or shortness of breath.
Objective Data
-
Labs:
Laboratory Results
08/18/23
03:25
WBC 8.0
Hgb 9.9 L
Hct 32.8 L
Plt Count 334 D
Sodium 133 L
Potassium 4.0
Chloride 96 L
Carbon Dioxide 34 H
BUN 22 H
Creatinine 0.8
Glucose 107 H
Calcium 8.5
Vital Signs:
Vital Signs
Temp Pulse Resp BP Pulse Ox
97.8 F 97 20 102/82 97
08/18/23 12:53 08/18/23 13:25 08/18/23 12:53 08/18/23 13:25 08/18/23 12:53
I&O
08/17/23 08/18/23 08/19/23
06:59 06:59 06:59
Intake Total 480 / 480 480 / 480
Output Total 600 / 600 400 / 400
Balance -120 / -120 80 / 80
--- NOTE | 2023-08-18 15:22 | PTCARENOTE ---
Discussed all nursing measures w/ patient. Pt not wanting to eat. Applesauce given w/ pt's meds. Pt stated that she doesn't want to be turned. Pt actually said, 'don't touch me'. Pt turned to be assessed, sat up in bed, worked w/ pt. Pt
encouraged to eat and turn.
--- NOTE | 2023-08-18 15:26 | PTCARENOTE ---
Pt's son and [id number] visited pt. Case management discussed pt's disposition. Will monitor.
[2023-08-18] MEDS: LIPITOR 40 MG PO (17:13)
[2023-08-18] MEDS: VESICARE 10 MG PO (17:13)
[2023-08-18] MEDS: LOVENOX 40 MG SC (18:11)
--- NOTE | 2023-08-18 18:38 | PTCARENOTE ---
Received patient from [facility]. Pt brought down by RN and tech. Pt. AAOx3, 2L O2 . Pt stable. Assessment completed.
--- NOTE | 2023-08-18 18:41 | PTCARENOTE ---
Report given to Sadaf HERNANDEZ on 2N. Pt transferred to room 2133.
[2023-08-18 23:52] LABS: Glucose - Point of Care 109 mg/dl (70-99)
[2023-08-19 03:45] VITALS: BP 93/68
[2023-08-19 04:57] VITALS: BP 93/68
[2023-08-19 05:02] LABS: Hematocrit 32.7 % (37.0-47.0); Hemoglobin 9.7 g/dL (12.0-16.0); Mean Corp Hgb Conc. 29.7 g/dL (33.0-37.0); Mean Corpuscular Hgb 25.8 pg (27.0-31.0); Mean Platelet Volume 9.9 fL (7.4-10.4); Platelet Count 317 10^3/uL (130-400); Red Blood Cell Count 3.76 10^6/uL (4.20-5.40); Red Cell Dist. Width 19.6 % (11.5-14.5)
[2023-08-19 05:36] LABS: Blood Urea Nitrogen 27 mg/dl (7-17); Calcium 8.8 mg/dl (8.4-10.2); Carbon Dioxide 34 mmol/L (22-30); Chloride 92 mmol/L (98-107); Estimated Creatinine Clearance 57 ml/min; Glucose 98 mg/dl (70-99); Magnesium 1.9 mg/dl (1.6-2.3); Potassium 3.9 mmol/L (3.5-5.1); Sodium 134 mmol/L (135-145); eGFR > 60.00
[2023-08-19 05:38] VITALS: BMI 41.1
[2023-08-19] MEDS: NEURONTIN 200 MG PO ×2 (06:35→12:48)
[2023-08-19 08:06] VITALS: BP 108/70
--- NOTE | 2023-08-19 08:49 | HOSPNOTE ---
Spoke with son the equipment is being delivered now and the plan is to discharge today at 12noon. Once the patient is home our hospice nurse will sign patient onto hospice services. The patient will have 24 hour caregivers. OOH DNR needed on chart.
Attending and case management aware of plan.
--- NOTE | 2023-08-19 08:51 | W.PN.CD ---
Today's Communication / Plan
-
continue Toprol XL 12.5mg daily at noon
no lasix today
case management notes reviewed: plan seems to be home with hospice
if this plan changes, please call us back with additional questions
Impression / Plan
-
BACKGROUND: 72F who presented with weakness and shortness of breath.
HFrEF, acute on chronic
-Presented with SOB, vascular congestion on CXR, & proBNP 20K
-LVEF 60-65% in Sep, 2019, now EF 36%, RV mildly dilated and hypokinetic
-RHC with PCWP 31 RA 21 PA 65/38 CO 1.7 (wt 104.1 kg, but wts have been unreliable as using a bed scale).
-Diuresis has been impressive. Wt has dropped from 109kg to 96 kg
-Lasix held in setting of metabolic alkalosis, trend BMP: overall stable
-weight still stable on no Lasix
-GDMT limited by hypotension
-BB: will trial a small dose of bb today as in and out of AT and some BP allowance--move Metoprolol Succinate 12.5mg daily to noon (BP seems best mid day), Now in NSR at 60-70
-PITO/ARB: typically on Valsartan 160mg, but stopped due to hypotension
-SGLT2: Case management to anthony
-MRA: She presented with hyperkalemia
Hypoxia: Patient's son at the bedside 08/14/23 noticed an episode of hypoxia down to 88% with a good Pleth. He reports Ike-Nicole breathing pattern.
-ABG done 08/15/23shows some hypoxia with a gradient. I suspect some of this due to atelectasis given she is basically bedbound and morbidly obese. However, with her altered mental status aspiration is a good consideration.
- improved
Aortic stenosis, bicuspid, severe
-Peak/mean gradients 89/56 mmHg
-LVOT 2.0cm, KORI 0.44 with trace appreciate structural team consult, case to be discussed 08/13/23 meeting.
-discussed at Valve Multidisciplinary meeting 08/13/23. She is not a candidate for high risk intervention given co morbidities, essentially bedbound status, it was felt the risk was >>>> than any potential benefit.
-we are discussing palliation and hospice referral,
-I did offer to make her cath data available to any center if she wishes to pursue a second opinion.
Atrial tachycardia: Intermittent at times in the 120's, last night in 100-110's for 5 hours.
-Regardless, at this point would not maximiliano with antiarrhythmic therapy. Continue bb.
- She is asymptomatic.
TME: improved
-She is a bit disoriented and at times less responsive. Medications are being adjusted to limit sedating effects. ABG did not reveal significant respiratory acidosis rather an appropriate compensation.
CAD: no chest pain
-99% ostial RCA
-Peak trop this admission was 0.090.
-med mgmt
-continue asa/statin
Myocardial injury secondary to CAD, acute CHF and severe valvulopathy:
-treat CHF
Severe Deconditioning
Severe lymphedema and chronic lower extremity wounds---wound care consulted
-great improvement with wraps
IBS with chronic diarrhea
Ascending thoracic aortic dilatation
Moderate mitral regurgitation.
Moderate pulmonary HTN
Hypertension,
Ambulatory dysfunction requiring rolling walker
Morbid obesity, BMI > 45
Long history of lymphedema
Severe orthopedic disease
Outpatient palliative care, last seen 07/[address] Moreno
History of MRSA colonization
Son: Dr. Phoenix Callahan(cardiology) at his phone number [phone].
Discharge planning underway
Overall prognosis is poor
Subjective:
Lethargic.
Data:
R/LHC 08/11/23: HEMODYNAMIC DATA
AO: 95/67
LV: Not done
PCWP: 31
PA: 65/38
RV: 65/22
RA: 21
Oximetry: Ao 97%, PA 54%, cardiac output 3.3, cardiac index 1.7
CORONARY ANGIOGRAPHY
Dominance: Right
Left Main: Normal
LAD: Normal
Circumflex: Normal
RCA: 99% ostial stenosis. There is sluggish flow into the proximal RCA
Of note, our plan was to perform this procedure from the right radial artery. Access was easily obtained and a 5 Sen[place]e right radial artery sheath placed. Heparin 6000 units was administered. There was significant innominate tortuosity; however,
we were able to engage the left coronary and perform left coronary angiography in multiple projections. We were unable to access the right coronary artery despite using JR4 and AL-1 diagnostic catheters. A 5 [place]e DAVIN catheter could not be
advanced through the innominate artery due to spasm and at this point it was clear that we would be unable to access the ascending aorta from the right radial artery approach. A decision was made to access the right femoral artery to complete the
study with right coronary angiography. After easily accessing the right femoral artery using the micropuncture technique, a 5 Sen[place]e sheath was placed. We were unable to pass a standard J-wire past the proximal external iliac artery. Similarly, a
hydrophilic small J-wire and an angled Glidewire were not not able to be passed into the common iliac. Although right femoral artery sheath pressure was identical to previously recorded aortic pressures, we opted for left femoral artery access as
there was some contrast hanging up on a puff through the RFA sheath consistent with retrograde dissection. A 5 [place]e LFA sheath was placed easily using a micropuncture technique and a 6 [place]e sheath placed in the left femoral vein. This allowed
us to perform right heart catheterization, selective right coronary artery angiography and abdominal aortography with bilateral iliofemoral runoff.
Lower extremity angiography: Aortography above the femoral bifurcation was performed at the conclusion of the procedure to assess the right iliofemoral vessels and to assess access for possible TAVR bilaterally. There is no evidence of
atherosclerotic disease in the right common femoral artery and no angiographic evidence of residual dissection in the common femoral artery. Both the right and left femoral artery arteriotomy sites are in the mid common femoral artery. Vessel
diameter estimates by angiography suggest that she will be a candidate for transfemoral TAVR
CONCLUSIONS
1: Borderline systemic blood pressure
2: Markedly elevated left and right heart filling pressures with moderate to severe pulmonary hypertension
3. Low cardiac output state
4. Single-vessel CAD with subtotal occlusion of the ostial RCA
5. No significant atherosclerotic disease of the iliofemoral vessels bilaterally
6. No PCI attempt was contemplated as the patient requested that only a diagnostic study be performed
7. Known severe aortic stenosis (bicuspid valve with mean gradient 56 mmHg) not evaluated invasively
8. She will need continued diuresis and may benefit from a period of inotropic support
9. It is unclear whether she will agree to to have a heart and similarly unclear whether TAVR will improve her prognosis given the evidence of right heart dysfunction by echo and cath
TTE: 08/09/23:
CONCLUSIONS
Moderately reduced left ventricular systolic function. Global hypokinesis.
Left ventricular ejection fraction is 36% by volumetric assessment.
Enlarged right ventricular size with reduced systolic function.
Stage II diastolic dysfunction suggestive of abnormal relaxation and increased
filling pressures
Moderate mitral regurgitation.
Calcified bicuspid aortic valve. Trace aortic regurgitation.
Severe aortic stenosis with peak/mean gradients across the aortic valve are
89/56 mmHg.
Moderate pulmonary hypertension.
Compared to previous echo 11/12/2020, the ejection fraction has decreased from
60-65% to 36%. The right ventricle is dilated and hypokinetic. Moderate
pulmonary hypertension is new.
Physical Exam
Vital Signs/Labs
Vital Signs
Temp Pulse Resp BP Pulse Ox
98.1 F 72 18 93/68 97
08/19/23 03:45 08/19/23 03:45 08/19/23 03:45 08/19/23 03:45 08/19/23 03:45
08/18/23 08/19/23 08/20/23
06:59 06:59 06:59
Actual Weight 95.2 kg 95.572 kg
08/19/23 04:48
08/19/23 04:48
Magnesium 1.9 mg/dl (1.6-2.3) 08/19/23 04:48
Triglycerides 68 mg/dl (10-149) 08/11/23 10:13
LDL Cholesterol, Calc 45 mg/dl 08/11/23 10:13
VLDL Cholesterol, Calc 13 mg/dl (0-30) 08/11/23 10:13
HDL Cholesterol 20 mg/dl 08/11/23 10:13
08/06/23
22:44
Imn-X-Bsrfdfneojc Pept
Physical Exam
Constitutional: Other (lethargic)
EENT: Moist mucous membranes
Cardiovascular: Rhythm & rate is regular, Pedal edema present, JVD present and Systolic murmur present
Respiratory: Respiratory effort normal and Lungs clear to auscul.
GI: Soft
Neuro/Psych: Other (lethargic)
Data Reviewed
-
Date of Service: August 19, 2023
EKG: Other (Tele: SR 60s, brief SVT)
Labs: Labs Reviewed by me
[2023-08-19] MEDS: DESENEX/MITRAZOL/ZEASORB 1 APPLIC TOPICAL (08:54)
[2023-08-19] MEDS: ASPIR LOW (ENTERIC COATED) PO ×2 (08:54→10:18)
[2023-08-19] MEDS: PROTONIX PO ×2 (08:54→10:19)
[2023-08-19] MEDS: NSS (PRESERVATIVE FREE) 8 ML IV (08:57)
[2023-08-19] MEDS: LEXAPRO PO ×2 (08:57→10:19)
[2023-08-19] MEDS: SENOKOT PO ×2 (08:57→10:19)
[2023-08-19] MEDS: PEPCID 20 MG IV (08:57)
--- NOTE | 2023-08-19 10:05 | CM ---
Reviewed the chart notes. IMM placed on chart. Patient to be discharged to home today at 11:30am. CM continues to be available to patient/family and is monitoring medical plan for needs at discharge.
Plan: Discharge to home today. Medical and Transport forms on chart.
--- NOTE | 2023-08-19 10:12 | W.PN.HOSP.TC ---
Today's Communication/Plan
-
Discharge today
Assessment / Plan
Assessment / Plan
Physical Exam
General: Not in acute distress
HEENT: Normocephalic, Moist mucous membranes
Respiratory: Clear to Auscultation Bilaterally
Cardiac: S1/S2, Regular Rate and Rhythm, Systolic Murmur Present
GI: Soft, Non Tender, Non Distended and Normal Bowel Sounds
Musculoskeletal: Edema, Left Lower Extremity (massive ), Edema, Right Lower Extremity (massive ) and Other (both legs are wrapped )
Neuro: Sleepy
Psych: Calm
Assessment/Plan
72-year-old female with severe aortic stenosis CHF and fluid overload underwent TAVR evaluation and considered too high risk based on poor performance status (very obese and lymphedema issues with secondary status) cardiology medical service have
suggested palliative care and hospice as doubt she can function at home son (turner off down at [place] in [place]) has been here this week to help coordinate discharge planning/code status was previously changed to DNR while
here/increasing confusion and ABG showed mixed metabolic alkalosis and respiratory acidosis gabapentin reduced
Spoke to patient's son who mentioned patient's usual sleep time is ~3 am to ~10 am which could be the reason for confusion.
Progressive Dyspnea
Presentation with Increasing Generalized Weakness and Leg Swelling
Acute on Chronic HFrEF
Non compliance with Lasix (for the past 2 to 3 weeks prior to presentation) due to the fact that it's hard for her to get and go to the bathroom
Lives independently at home but spends most of her time on recliner
Hypoxia - from atelectasis, obesity, possibly aspiration
Questionable Encephalopathy -- but normal sleep schedule 3 am to 10 am
Moderate mitral regurgitation.
Moderate pulmonary HTN
- CXR as per radiologist's report showed 'Mild pulmonary vascular congestion. Left midlung atelectasis. Cardiomegaly.'
- proBNP was on presentation
- Lasix being held at this time due to metabolic alkalosis -- weight stable/okay -- checked with cardiology -- no Lasix needed today
- Daily Is and Os
- Consider SGLT2 inhibitor
- Cardiology consulted and based on risks benefits and poor performance status decision patient is not an interventional candidate
- It has been explained that palliation may be the only choice at this point/again had long discussion and both cardiology and the medical service now recommending palliation care and a outpatient hospice facility strongly recommended and patient is
considering this seriously
Episodes of Atrial tachycardia
-Trial of low dose beta ocrnell
-Due to hypotension, Metoprolol Succinate 12.5 mg daily was previously moved to noon (BP seems best mid day), hold parameters for SBP <90 mmHg
Prolonged QTc
-QTc 491 on August 17, 2023 --> improved overall
-Monitor QTc
-Patient is on Lexapro
Volume overload - improved
Chronic Lymphedema of both legs
- PO fluid restriction
- Hold amlodipine for now.
- Has lost a total of ~30 lbs of weight since arrival
- Hold Lasix given patient's fluid weight loss already and metabolic alkalosis -- but consideration for resuming soon -- please see above
Hyperkalemia
- Continue to hold Valsartan in the setting of hypotension as well
- Follow-up potassium in response to diuresis
Elevated TPNI - Non-[place] Troponin Elevation due to acute HF
Coronary Artery Disease
- Trended troponins -- although elevated, they showed an unremarkable trend
Severe Bicuspid Aortic Stenosis
History of bicuspid aortic valve
Patient denies lightheadedness / dizziness.
-Repeat 2D echocardiogram reviewed and compared to 2019 noting diminished EF now down to 35% from 65%/severe aortic stenosis/increased pulmonary hypertension and RV dilatation
-LVOT 2.0 cm/KORI of 0.44/
-Left heart cath noted 99% ostial RCA lesion patient refused PCI/
-GDMT/not ideal to pursue aggressively given BP constraints/valsartan was resumed but now on hold due to BP
-Cardiology in the medical service after obtaining opinion from the CT surgery service in regards to viability for TAVR found to have prohibitive risk benefit ratio for any thoughts of intervention/pulm services opinion now is palliation and
transition to hospice care which she is considering
Essential Hypertension
Hypotension
- Held amlodipine as noted above as this can worsen edema.
- Held valsartan due to hyperkalemia
- Monitor blood pressure
Ascending thoracic aortic dilatation
Chronic ambulatory dysfunction: multifactorial origins
mostly in recliner but walk short distance to BR
Multifactorial gait dysfunction
History of fall with persistent neck pain
History of Rhabdomyolysis
DJD, Morbid obesity
- s/p bilateral TKA.
- Has chronic left hip pain
- Pain control
- Patient remains very sedentary and even resistant to changes in bed position at times.
History of GERD
History of Irritable Bowel Syndrome
History of Crohn's Disease?
Morbid Obesity due to calorie excess
- Ability to exercise is significantly impaired by gait dysfunction, DJD, etc.
Long history of wounds
- Continue wound care
History of MRSA colonization
History of Urinary Tract Infection
Depression and anxiety
-By history and discussion of the family not been treated
-She herself has been resistant to therapy
-May have related to family members that she wanted to
-She was seen and evaluated by psychiatry here no evidence of any active depression or suicidal ideation/seemingly appropriate for decision-making also
-She continues to be steadfast in refusing intervention for her severe aortic stenosis
-She had a lot of frustrations in relation to her family issues especially with her brother and son who wanted her to pursue intervention for her valve which she is resistant to since 'it is not bothering me'
-Discussed with patient's son -- who requested that Lexapro 5 mg be started -- started the Lexapro
DVT Prophylaxis: Lovenox
Code Status: DNR/DNI
On August 16, 2023, I spoke to patient's son Dr. Callahan. All questions and concerns were answered to satisfaction.
On August 18, 2023, I spoke to patient's son [place], and Dr. Callahan's . All questions and concerns were answered to satisfaction.
More than 30 minutes spent in discharge including
Final examination of the patient
Summarizing hospital stay
Instructions for continuing care to all relevant caregivers
Preparation of discharge records, prescriptions, and referral forms
Total time spent (in minutes): 37
Anticipated Discharge: Today
Subjective/Interval History
-
Date of Service: August 19, 2023
Patient was seen and examined. She was sleeping comfortably, no new significant issues reported overnight.
Objective Data
-
Labs:
Laboratory Results
08/19/23
04:48
WBC 7.0
Hgb 9.7 L
Hct 32.7 L
Plt Count 317
Sodium 134 L
Potassium 3.9
Chloride 92 L
Carbon Dioxide 34 H
BUN 27 H
Creatinine 0.9
Glucose 98
Calcium 8.8
Vital Signs:
Vital Signs
Temp Pulse Resp BP Pulse Ox
97.6 F 72 18 108/70 97
08/19/23 08:06 08/19/23 08:06 08/19/23 08:06 08/19/23 08:06 08/19/23 08:06
I&O
08/18/23 08/19/23 08/20/23
06:59 06:59 06:59
Intake Total 480 / 480 600 / 600
Output Total 400 / 400 500 / 500
Balance 80 / 80 100 / 100
--- NOTE | 2023-08-19 10:46 | W.DS.TRANS ---
DC Summary - [employer]
-
Discharge Instructions:
Sleep Apnea Risk Intermediate
Discharge Diagnosis/Procedures Progressive Dyspnea
Presentation with Increasing Generalized
Weakness and Leg Swelling
Acute on Chronic HFrEF
Non compliance with Lasix (for the past 2 to 3
weeks prior to presentation) due to the fact
that it's hard for her to get and go to the
bathroom
Lives independently at home but spends most of
her time on recliner
Hypoxia - from atelectasis, obesity, possibly
aspiration
Questionable Encephalopathy -- but normal sleep
schedule 3 am to 10 am
Moderate mitral regurgitation.
Moderate pulmonary hypertension
Episodes of Atrial tachycardia
Prolonged QTc - improved
Volume overload - improved
Chronic Lymphedema of both legs
Hyperkalemia
Non-[place] Troponin Elevation
Coronary Artery Disease
Severe Bicuspid Aortic Stenosis
History of bicuspid aortic valve
Patient denies lightheadedness / dizziness.
Essential Hypertension
Hypotension
Ascending thoracic aortic dilatation
Chronic ambulatory dysfunction
Multifactorial gait dysfunction
History of fall with persistent neck pain
History of Rhabdomyolysis
DJD, Morbid obesity
History of GERD
History of Irritable Bowel Syndrome
History of Crohn's Disease?
Morbid Obesity due to calorie excess
Long history of wounds
History of MRSA colonization
History of Urinary Tract Infection
Depression and anxiety
Diet As tolerated,Low Fat,Low Cholesterol
Activity With assistance
Specialty Instructions Weigh Daily
Instructions: *[facility] Heart Failure Instructions
Stand-Alone Forms: DC Instructions- Cath/EP Lab
Changes to Home Medications: Yes
Discharge Medications:
DC Medications w/original date entered in [employer]
loperamide 2 mg capsule 2 mg PO QIDPRN PRN diarrhea 06/21/20
solifenacin 5 mg tablet 10 mg PO QPM Urinary issue 06/21/20
acetaminophen 500 mg tablet 500 - 1,000 mg PO Q6H Pain 08/06/23
furosemide 40 mg tablet 40 mg PO DAILY Fluid Retention/Swelling 08/06/23
aspirin 81 mg tablet,delayed release 81 mg PO DAILY #30 tabs 08/19/23
atorvastatin 40 mg tablet 40 mg PO QPM #30 tabs 08/19/23
escitalopram oxalate 5 mg tablet 5 mg PO DAILY #30 tabs 08/19/23
famotidine 20 mg tablet (Pepcid) 20 mg PO BID #60 tabs 08/19/23
ferrous sulfate 325 mg (65 mg iron) tablet (FeroSul) 325 mg PO Q48H Supplement #0 tabs 08/19/23
gabapentin 300 mg capsule 200 mg (0.6667 x 300 mg) PO Q6H Pain #0 caps 08/19/23
metoprolol succinate 25 mg tablet,extended release 24 hr 12.5 mg (1/2 x 25 mg) PO DAILY@1200 #30 tabs 08/19/23
miconazole nitrate 2 % topical powder (Miconazorb AF) 1 applic topical BID #85 grams 08/19/23
sennosides 8.6 mg tablet (Senna Laxative) 8.6 mg PO BID #60 tabs 08/19/23
tramadol 50 mg tablet 25 mg (1/2 x 50 mg) PO Q6H PRN Pain #12 tabs 08/19/23
Home Medication Changes
New Medications are: Aspirin, Atorvastatin, Escitalopram, Famotidine, Metoprolol Succinate, Miconazole, and Senna Laxative
Ferrous Sulfate changed to Q48H
Gabapentin reduced to 200 mg PO Q6H
Tramadol decreased to 25 mg PO Q6H prn pain
Furosemide is on hold
Omeprazole and Valsartan have both been stopped
Pending Results: No
Total time spent discharging patient (in min): 37
--- NOTE | 2023-08-19 11:00 | PTCARENOTE ---
Pt. being discharged on home hospice. Transport pickup time is set for 1130. IV and tele taken off. Watts placed per request from family and MD order.
[2023-08-19] MEDS: NEURONTIN PO (11:05)
[2023-08-19] MEDS: TOPROL XL PO (11:05)
--- NOTE | 2023-08-19 12:00 | PTCARENOTE ---
Family stated home health care is not set up yet. Will be set up later today. New transport pickup time for 1700. Patient resting comfortably in bed.
--- NOTE | 2023-08-19 12:40 | HOSPNOTE ---
Spoke with son and daughter in law transport was cancelled since the son stated that he was interviewing different caregivers until he felt he found the right fit. Transport is now scheduled for 5pm. The son is in agreement to have patient
transferred home via ambulance. Case management and attending aware of new discharge time. Once patient arrives home patient will be admitted onto hospice services.
[2023-08-19] MEDS: ULTRAM 25 MG PO (12:48)
[2023-08-19 16:00] VITALS: BP 111/63
--- NOTE | 2023-08-19 16:00 | PTCARENOTE ---
Discharge medications/ instructions went over with son at bedside. Pickup time for 1700. Family/ caregivers meeting patient at home. Patient changed into her clothes per family request. Son took patient belongings with him.
--- NOTE | 2023-08-20 13:26 | W.HF.CON ---
Heart Failure
- LV Function
Left ventricular function study result: LV Ejection fraction >35% - 40%
Ejection Fraction Percentage: 36
- ARNI
Patient already on ARNI: No
Heart Failure ARNI Contraindication: Hypotension, Severe Aortic Stenosis
- ACEI/ARB
Patient already on ACEI/ARB: No
Heart Failure ACEI/ARB Contraindication: Hypotension, Severe Aortic Stenosis
- Beta Joe
Patient already on Evidence Based Beta Joe: Yes
- Mineralocorticord Receptor Antagonist
Patient already on MRA: No
Heart Failure MRA Contraindication: Hypotension
- SGLT-2 Inhibitor
Patient already on SGLT-2 Inhibitor: No
Heart Failure SGLT-2 Inhibitor Contraindication: Comfort Measures
- NYHA CHF Classification
NYHA CHF Classification Level: Class III - Symptoms w/ min exertion, interferes w/ nml daily activity
- ACC/AHA Stage
ACC/AHA Stage: Stage D: Advanced Heart Failure
--- NOTE | 2023-08-26 09:04 | W.DCSUMMARY ---
Discharge Summary
Discharge Data
Date of Admission: 08/06/23
Date of Discharge: 08/19/23
Total time spent discharging patient (in min): 37
-
Pending Results: No
Hospital Course
72 female with past medical history of severe ambulatory dysfunction, morbid obesity, lymphedema, severe aortic stenosis, and additional history as below, presented with shortness of breath, not relieved with her home Furosemide, work-up suggested
heart failure. Patient was continued on diuresis and started on intravenous diuresis -- later patient's Lasix was held and continued to be held due to her metabolic alkalosis. Cardiology was consulted and discussed her aortic valve situation with
her. Patient's echocardiogram showed, as per pilot plant technician's report, an ejection fraction of 36%, global hypokinesis, enlarged right ventricular size and severe aortic stenosis, among many other significant findings (please see official
echocardiogram report for additional details).
Patient had a cardiac cath (for the purpose of evaluating patient's coronary arteries prior to any potential aortic valve replacement) on August 10, 2023 which showed significant pulmonary hypertension, low cardiac output state, single-vessel coronary
artery disease with subtotal occlusion of the ostial RCA, no PCI attempt was made -- given patient's request for only a diagnostic study, and known aortic stenosis was found (please see cardiac cath report for additional details). Patient was
started on Aspirin and Statin. The heart valve/structural team was consulted, a Shared Decision Making meeting was held; patient was felt to be high risk for TAVR given multiple co-morbidities, and the benefit of the TAVR did not appear to outweigh
the associated risks with the procedure.
Psychiatry was consulted as patient was having suicidal thoughts. At the time of psychiatry's assessment, patient was noted to have unspecified situational depression but patient denied any suicidal ideation and from psychiatry standpoint, no
psychiatric intervention was needed. Patient's son later requested Lexapro be started for depression and it was started.
Gastroenterology was consulted for her reported dysphagia and they recommended twice per day proton pump inhibitor (later changed to Pepcid twice a day as outpatient), GERD precautions; research hydraulic engineer also mentioned that patient ideally needs
visualization of her esophagus but in the setting of her severe aortic stenosis and heart failure, upper endoscopy was not ideal. Esophagram showed no mass.
Patient had some confusion, which after clarification with patient's son was due to patient's sleep schedule being 3 am to 10 am (so seeing and examining the patient prior to 10 am would make it appear that she is confused). Gabapentin dose was
reduced. Arterial blood gas showed hypoxia with a gradient, likely from patient's atelectasis. Aspiration was also a possibility. Pulmonary was also consulted and it was suspected that patient has underlying obstructive sleep apnea/obesity
hypoventilation syndrome given her ABG and chronic CO2 retention, patient's son declined outpatient sleep study and patient would not be in agreement with a sleep study either.
Patient's Toprol XL was moved to be administered around noon given her lower blood pressures in the mornings. It was noted that Valsartan was stopped due to loow blood pressure.
Discharge Plan
-
Patient Disposition: Home with Hospice
Discharge Diagnosis/Procedures: Progressive Dyspnea
Presentation with Increasing Generalized Weakness and Leg Swelling
Acute on Chronic HFrEF
Non compliance with Lasix (for the past 2 to 3 weeks prior to presentation) due to the fact that it's hard for her to get and go to the bathroom
Lives independently at home but spends most of her time on recliner
Hypoxia - from atelectasis, obesity, possibly aspiration
Questionable Encephalopathy -- but normal sleep schedule 3 am to 10 am
Moderate mitral regurgitation.
Moderate pulmonary hypertension
Episodes of Atrial tachycardia
Prolonged QTc - improved
Volume overload - improved
Chronic Lymphedema of both legs
Hyperkalemia
Non-ND Troponin Elevation
Coronary Artery Disease
Severe Bicuspid Aortic Stenosis
History of bicuspid aortic valve
Patient denies lightheadedness / dizziness.
Essential Hypertension
Hypotension
Ascending thoracic aortic dilatation
Chronic ambulatory dysfunction
Multifactorial gait dysfunction
History of fall with persistent neck pain
History of Rhabdomyolysis
DJD, Morbid obesity
History of GERD
History of Irritable Bowel Syndrome
History of Crohn's Disease?
Morbid Obesity due to calorie excess
Long history of wounds
History of MRSA colonization
History of Urinary Tract Infection
Depression and anxiety
Condition: Fair
Diet: As tolerated, Low Fat and Low Cholesterol
Activity: With assistance
Specialty Instructions: Weigh Daily- Call MD for wt gain/loss 3 lbs overnight/5 lbs in 1 week
Activity Restrictions/Additional Instructions:
Wound Care Instructions
Wash legs with soap and water or saline, apply Vaseline or Aquaphor ointment daily.
R leg: Adaptic ABD pads and kerlix daily silicone foam to scab on anterior ankle to protect, change q 3 days.
L medial ankle and leg with dry dressing under Knee high stephenie wraps as needed for drainage.
R outer abdominal fold MASD-miconazole powder to abdominal/groin folds bid, apply zinc barrier ointment (i.e. Calazime) over linear open area R outer abdominal fold bid after miconazole powder applied.
Resume compression as tolerated; may remove at bedtime; reapply every am and lymphedema pumps as ordered.
Leg elevation when sitting
Pressure redistributing chair cushion (i.e. Air chair cushion).
Follow up at wound care center call for an appointment.
Instructions: *CBC Heart Failure Instructions
Stand Alone Forms: DC Instructions- Cath/EP Lab
Referrals:
Ailyn Gomez MD [Family Provider] - in less than 1 week
Mayelin Martin, [Active] - (SLEEP consult (if desired by patient))
Ivelisse Estrada MD [Active] - in two to four weeks
Additional Discharge Medication Instructions: New Medications are: Aspirin, Atorvastatin, Escitalopram, Famotidine, Metoprolol Succinate, Miconazole, and Senna Laxative
Ferrous Sulfate changed to Q48H
Gabapentin reduced to 200 mg PO Q6H
Tramadol decreased to 25 mg PO Q6H prn pain
Furosemide is on hold
Omeprazole and Valsartan have both been stopped
Prescriptions:
New
aspirin 81 mg Tablet,Delayed Release (Dr/Ec)
81 mg PO DAILY Qty: 30 1RF
miconazole nitrate [Miconazorb AF] 2 % Powder
1 applic topical BID Qty: 85 1RF
escitalopram oxalate 5 mg Tablet
5 mg PO DAILY Qty: 30 0RF
atorvastatin 40 mg Tablet
40 mg PO QPM Qty: 30 0RF
famotidine [Pepcid] 20 mg tablet
20 mg PO BID Qty: 60 1RF
sennosides [Senna Laxative] 8.6 mg Tablet
8.6 mg PO BID Qty: 60 1RF
metoprolol succinate 25 mg Tablet Extended Release 24 Hr
12.5 mg PO DAILY@1200 Qty: 30 1RF
Continued
loperamide 2 MG capsule
2 mg PO QIDPRN MDD 8caps/24hrs PRN (Reason: diarrhea)
solifenacin 5 MG tablet
10 mg PO QPM
acetaminophen 500 mg Tablet
500 - 1,000 mg PO Q6H
Changed
tramadol 50 MG tablet
25 mg PO Q6H PRN (Reason: Pain) Qty: 12 0RF
Patient Comments:
08/06/2023: last filled 06/22/23, 120 tabs for 30 days from [id number]
ferrous sulfate [FeroSul] 325 MG tablet
325 mg PO Q48H Qty: 0 0RF
gabapentin 300 MG capsule
200 mg PO Q6H Qty: 0 0RF
Held
furosemide 40 mg Tablet
40 mg PO DAILY
Hold Instructions: Resume on 09/16/23. Lasix on hold -- can be considered if needed outpatient
Discontinued
omeprazole 20 mg Capsule,Delayed Release(Dr/Ec)
20 mg PO DAILY
valsartan 160 mg tablet
160 mg PO DAILY
Discharge Orders:
Discharge Patient (As Directed); Ordered 08/19/23
Ordered By: Romero Bacon
Care Plan Goals
Care Plan Goals:
Problem: Readiness for enhanced knowledge related to diagnosis and treatment plan
Goal: Understand your diagnosis and treatment plan needs, including medications if applicable.
Instructions: Know your diagnosis, underlying causes and treatment plan options, including medications if applicable. Consult with your health care team to learn about your diagnosis and treatment plan, including medications if applicable.
Discharge Date and Time
Discharge Date/Time: 08/19/23 16:59
Print Language: KOREAN
== END 2023-08-19 16:59 | disposition hospice, home (50) | DRG 286 ==
LOC: 2 NORTH 23:59
PROVIDERS: Emergency Medicine; Internal Medicine; Internal Medicine Cardiovascular Disease; ADMITTING PHYSICIAN Internal Medicine; ATTENDING PHYSICIAN Hospitalist; CONSULT PHYSICIAN Internal Medicine; CONSULT PHYSICIAN Internal Medicine Cardiovascular Disease; EMERGENCY PHYSICIAN Emergency Medicine; FAMILY PHYSICIAN Internal Medicine; OTHER PHYSICIAN Psychiatry & Neurology Psychiatry
PROC: B2111ZZ Fluoroscopy of Multiple Coronary Arteries using Low Osmolar Contrast (ICD-10-PCS; 2023-08-10)
PROC: 4A023N7 Measurement of Cardiac Sampling and Pressure, Left Heart, Percutaneous Approach (ICD-10-PCS; 2023-08-10)
DX: I11.0 Hypertensive heart disease with heart failure (principal); G92.8 Other toxic encephalopathy; I50.23 Acute on chronic systolic (congestive) heart failure; E87.29 Other acidosis; K50.90 Crohn's disease, unspecified, without complications; E66.2 Morbid (severe) obesity with alveolar hypoventilation; Z68.41 Body mass index [BMI] 40.0-44.9, adult; N39.0 Urinary tract infection, site not specified; R45.851 Suicidal ideations; J98.11 Atelectasis; E87.4 Mixed disorder of acid-base balance; E87.5 Hyperkalemia; J30.1 Allergic rhinitis due to pollen; J30.89 Other allergic rhinitis; I35.0 Nonrheumatic aortic (valve) stenosis; R26.2 Difficulty in walking, not elsewhere classified; K21.9 Gastro-esophageal reflux disease without esophagitis; F43.21 Adjustment disorder with depressed mood; M19.90 Unspecified osteoarthritis, unspecified site; R09.02 Hypoxemia; I89.0 Lymphedema, not elsewhere classified; I27.20 Pulmonary hypertension, unspecified; I25.10 Atherosclerotic heart disease of native coronary artery without angina pectoris; I34.0 Nonrheumatic mitral (valve) insufficiency; M25.552 Pain in left hip; I5A Non-ischemic myocardial injury (non-traumatic); G89.29 Other chronic pain; R13.10 Dysphagia, unspecified; I95.9 Hypotension, unspecified; Z66 Do not resuscitate; Z60.2 Problems related to living alone; Z96.653 Presence of artificial knee joint, bilateral; Z91.148 Patient's other noncompliance with medication regimen for other reason; Z88.2 Allergy status to sulfonamides; Z91.018 Allergy to other foods; Z86.14 Personal history of Methicillin resistant Staphylococcus aureus infection; Z22.322 Carrier or suspected carrier of Methicillin resistant Staphylococcus aureus; Z80.0 Family history of malignant neoplasm of digestive organs; Z87.440 Personal history of urinary (tract) infections; Z74.01 Bed confinement status
CPT/HCPCS: 36600; 71045; 74221; 80048; 80053; 80061; 81003; 81015; 82805; 82962; 83735; 83880; 84484; 85025; 85027; 87070; 87086; 87088; 87147; 87186; 92526; 92610; 93005; 93306; 96374; 97116; 97163; 97167; 97530; 99285; C1894; G0278; Q9967